=== PATIENT | male | born 1955 | race American Indian/Alaskan Native ===

== ENCOUNTER 2016-12-12 07:13 | Emergency (ER) | payer OTHER, SELFPAY ==
--- NOTE | 2016-12-12 07:54 | Emergency Department Report ---
ED General Adult HPI - General Chief complaint: Hypoglycemia Stated complaint: LOW BLOOD SUGAR Time Seen by Provider: 12/12/16 07:17 Source: patient, EMS, old records reviewed Mode of arrival: Stretcher Limitations: Physical Limitation - History of Present Illness Initial comments: 61-year-old male presents to the emergency department via EMS from local shelter for evaluation of altered mental status. Per report, the shelter staff found the patient to be less responsive this morning. He checked his blood sugar and found it to be 24. Patient was administered oral glucose and IM glucagon at the shelter prior to EMS arrival. EMS reports there initial blood glucose was 89. Further history is unable to be obtained from the patient due to his being nonverbal at this time. -: Sudden, During the night Severity scale (0 -10): 0 Consistency: now resolved Improves with: none Worsens with: none Associated Symptoms: denies other symptoms - Related Data Home Medications Medication Instructions Recorded Confirmed Last Taken Acetaminophen [Tylenol] 1,000 mg PO Q8H 12/12/16 12/12/16 Unknown Aspirin [Aspirin TAB] 1 tab PO DAILY 12/12/16 12/12/16 Unknown AtorvaSTATin [Lipitor] 40 mg PO DAILY 12/12/16 12/12/16 Unknown Brimonidine/Timolol 0.2-0.5% 1 drops OP Q12H 12/12/16 12/12/16 Unknown [Combigan 0.2-0.5%] Clonidine 0.2 mg PO BID 12/12/16 12/12/16 Unknown Immodium 2 caplet PO PRN 12/12/16 Unknown Insulin Aspart [NovoLOG Flexpen] 0 units SQ AC 12/12/16 12/12/16 Unknown Insulin Glargine [Lantus] 20 unit SUB-Q QHS 12/12/16 12/12/16 Unknown Latanoprost 0.005% [Xalatan 0.005%] 1 drop OP QPM 12/12/16 12/12/16 Unknown Losartan [Cozaar] 50 mg PO QDAY 12/12/16 12/12/16 Unknown Metoclopramide [Reglan] 10 mg PO TID 12/12/16 12/12/16 Unknown Metoprolol [Lopressor] 25 mg PO BID 12/12/16 12/12/16 Unknown Minoxidil [Loniten] 2.5 mg PO QDAY 12/12/16 12/12/16 Unknown Mirtazapine [Remeron] 7.5 mg PO HS 12/12/16 12/12/16 Unknown Pantoprazole [Protonix] 40 mg PO BID 12/12/16 12/12/16 Unknown amLODIPine [Norvasc] 10 mg PO DAILY 12/12/16 12/12/16 Unknown Allergies Allergy/AdvReac Type Severity Reaction Status Date / Time No Known Allergies Allergy Unverified 08/02/13 10:39 ED Review of Systems ROS: Stated complaint: LOW BLOOD SUGAR Other details as noted in HPI Comment: Unobtainable due to pts medical conditions ED Past Medical Hx - Past Medical History Previous Medical History?: Yes Hx Hypertension: Yes (essential) Hx Congestive Heart Failure: No Hx Diabetes: Yes Hx GERD: Yes Hx Renal Disease: Yes (HD m-w-f) Hx Asthma: No Hx COPD: No Additional medical history: Metabolic encephalopathy, Pneumoniits, Unspecified convulsions, 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, right heel ulcer, myopathy - Surgical History Past Surgical History?: Yes Additional Surgical History: dialysis graft LUE - Family History Family history: no significant - Social History Smoking Status: Unknown if ever smoked Substance Use Type: Prescribed - Medications Home Medications: Home Medications Medication Instructions Recorded Confirmed Last Taken Type Acetaminophen [Tylenol] 1,000 mg PO Q8H 12/12/16 12/12/16 Unknown History Aspirin [Aspirin TAB] 1 tab PO DAILY 12/12/16 12/12/16 Unknown History AtorvaSTATin [Lipitor] 40 mg PO DAILY 12/12/16 12/12/16 Unknown History Brimonidine/Timolol 0.2-0.5% 1 drops OP Q12H 12/12/16 12/12/16 Unknown History [Combigan 0.2-0.5%] Clonidine 0.2 mg PO BID 12/12/16 12/12/16 Unknown History Immodium 2 caplet PO PRN 12/12/16 Unknown History Insulin Aspart [NovoLOG Flexpen] 0 units SQ AC 12/12/16 12/12/16 Unknown History Insulin Glargine [Lantus] 20 unit SUB-Q QHS 12/12/16 12/12/16 Unknown History Latanoprost 0.005% [Xalatan 0.005%] 1 drop OP QPM 12/12/16 12/12/16 Unknown History Losartan [Cozaar] 50 mg PO QDAY 12/12/16 12/12/16 Unknown History Metoclopramide [Reglan] 10 mg PO TID 12/12/16 12/12/16 Unknown History Metoprolol [Lopressor] 25 mg PO BID 12/12/16 12/12/16 Unknown History Minoxidil [Loniten] 2.5 mg PO QDAY 12/12/16 12/12/16 Unknown History Mirtazapine [Remeron] 7.5 mg PO HS 12/12/16 12/12/16 Unknown History Pantoprazole [Protonix] 40 mg PO BID 12/12/16 12/12/16 Unknown History amLODIPine [Norvasc] 10 mg PO DAILY 12/12/16 12/12/16 Unknown History ED Physical Exam - General Limitations: Physical Limitation General appearance: alert, in no apparent distress - Head Head exam: Present: atraumatic, normocephalic - Eye Eye exam: Present: normal appearance, PERRL, EOMI - ENT ENT exam: Present: normal exam, normal orophraynx, mucous membranes moist - Neck Neck exam: Present: normal inspection, full ROM. Absent: tenderness - Respiratory Respiratory exam: Present: normal lung sounds bilaterally. Absent: respiratory distress - Cardiovascular Cardiovascular Exam: Present: regular rate, normal rhythm, normal heart sounds - GI/Abdominal GI/Abdominal exam: Present: soft, normal bowel sounds. Absent: distended, tenderness - Extremities Exam Extremities exam: Present: normal inspection, full ROM. Absent: tenderness - Back Exam Back exam: Present: normal inspection, full ROM. Absent: tenderness - Neurological Exam Neurological exam: Present: alert, other (Patient is nonverbal, but will respond to verbal commands. Moving all extremities.) - Skin Skin exam: Present: warm, dry, intact ED Course Vital Signs 12/12/16 12/12/16 12/12/16 07:22 07:30 07:32 Temperature 97.6 F Pulse Rate 61 62 61 Respiratory 9 L 8 L 16 Rate Blood Pressure 161/89 161/89 Blood Pressure 161/89 [Right] O2 Sat by Pulse 100 99 Oximetry 12/12/16 12/12/16 12/12/16 07:39 07:40 07:50 Temperature Pulse Rate 67 60 Respiratory 16 11 L 9 L Rate Blood Pressure 167/89 171/81 Blood Pressure [Right] O2 Sat by Pulse 99 98 100 Oximetry 12/12/16 12/12/16 12/12/16 08:00 08:10 08:20 Temperature Pulse Rate 63 68 66 Respiratory 11 L 9 L 13 Rate Blood Pressure 171/81 166/82 166/82 Blood Pressure [Right] O2 Sat by Pulse 100 100 99 Oximetry 12/12/16 12/12/16 12/12/16 08:30 08:40 08:50 Temperature Pulse Rate 62 57 L 57 L Respiratory 10 L 8 L 8 L Rate Blood Pressure 166/82 166/82 166/82 Blood Pressure [Right] O2 Sat by Pulse 100 100 100 Oximetry 12/12/16 09:00 Temperature Pulse Rate 57 L Respiratory 8 L Rate Blood Pressure 166/82 Blood Pressure [Right] O2 Sat by Pulse 99 Oximetry ED Medical Decision Making - Lab Data Result diagrams: 12/12/16 07:37 12/12/16 07:31 - Medical Decision Making Lab results reviewed. Patient has remained stable in the emergency department. Patient has become verbal and is expressing no complaints. He has tolerated oral intake. He'll be discharged back to nursing facility at this time. - Differential Diagnosis hypoglycemia, occult infection, electrolyte abnormality, encephalopathy Critical care attestation.: If time is entered above; I have spent that time in minutes in the direct care of this critically ill patient, excluding procedure time. ED Disposition Clinical Impression: Hypoglycemia due to insulin Disposition: DC/TX ANOTHER TYPE HEALTHCARE Is pt being admited?: No Condition: Stable Instructions: Diabetic Hypoglycemia (ED) Referrals: PRIMARY CARE [Primary Care Provider] - 3-5 Days Time of Disposition: 09:26
[2016-12-12 08:01] LABS: Basophils % (Auto) 0.5 % (0.0-1.8); Eosinophils % (Auto) 1.8 % (0.0-4.3); Hematocrit 27.8 % (35.5-45.6); Hemoglobin 9.1 gm/dl (11.8-15.2); Mean Corpuscular HGB Conc 33 % (32-34); Mean Corpuscular Hemoglobin 30 pg (28-32); Mean Corpuscular Volume 92 fl (84-94); Platelet Count 301 K/mm3 (140-440); Red Blood Count 3.02 M/mm3 (3.65-5.03); Red Cell Distribution Width 19.3 % (13.2-15.2); White Blood Count 4.7 K/mm3 (4.5-11.0)
[2016-12-12 08:03] LABS: BUN/Creatinine Ratio 9.21; Calcium 8.7 mg/dL (8.4-10.2); Chloride 98.5 mmol/L (98-107); Potassium 4.2 mmol/L (3.6-5.0)
--- NOTE | 2016-12-12 08:16 | XRay Report ---
AP CHEST: HISTORY: Hypertension, altered mental status AP view of the chest demonstrates a normal mediastinal and cardiac contour with clear lungs and normal bony and soft tissue structures. IMPRESSION: No acute cardiopulmonary process.
[2016-12-12 08:31] LABS: Bilirubin,Urine NEG (Negative); Blood,Urine NEG (Negative); Ketones,Urine NEG (Negative); Leukocyte Esterase,Urine NEG (Negative); Nitrite,Urine NEG (Negative); Urobilinogen,Urine < 2.0 mg/dL (<2.0)
[2016-12-12 09:13] VITALS: BP 166/82
== END 2016-12-12 10:27 | disposition other institution (70) ==
LOC: ED 07:13
DX: E09.649 Drug or chemical induced diabetes mellitus with hypoglycemia without coma (principal); I10 Essential (primary) hypertension; K21.9 Gastro-esophageal reflux disease without esophagitis
CPT/HCPCS: 36415; 71010; 80048; 81001; 82962; 83735; 85025; 99284

== ENCOUNTER 2017-03-06 04:49 | Inpatient (IN) | payer MEDICARE ==
[2017-03-06 05:55] LABS: Basophils % (Auto) 0.5 % (0.0-1.8); Mean Corpuscular HGB Conc 29 % (32-34); Mean Corpuscular Hemoglobin 30 pg (28-32); Mean Corpuscular Volume 102 fl (84-94); Platelet Count 243 K/mm3 (140-440); Red Blood Count 3.84 M/mm3 (3.65-5.03); Red Cell Distribution Width 17.4 % (13.2-15.2); White Blood Count 7.5 K/mm3 (4.5-11.0)
[2017-03-06 06:01] LABS: Hematocrit 39.3 % (35.5-45.6); Hemoglobin 11.5 gm/dl (11.8-15.2)
[2017-03-06 06:05] LABS: INR 1.14 (0.87-1.13)
[2017-03-06 06:06] LABS: Partial Thromboplastin Time 41.5 Sec. (24.2-36.6)
[2017-03-06 06:31] LABS: Albumin 3.9 g/dL (3.9-5); Albumin/Globulin Ratio 1.1 %; BUN/Creatinine Ratio 9.31; Bilirubin,Total 0.4 mg/dL (0.1-1.2); Chloride 79.9 mmol/L (98-107); Magnesium 2.1 mg/dL (1.7-2.3); Potassium 5.9 mmol/L (3.6-5.0); Total Protein 7.5 g/dL (6.3-8.2)
[2017-03-06] MEDS ORDERED: NACL 0.9% 500 ML 500 ML IV ONE (06:50)
[2017-03-06] MEDS ORDERED: D50W (25GM) IV PRN (06:52)
[2017-03-06] MEDS ORDERED: NovoLIN R 100 UNITS in NACL 0.9% 99 ML IV SCH ×2 (07:00→11:00)
--- NOTE | 2017-03-06 07:23 | XRay Report ---
AP CHEST: HISTORY: Chest pain, vomiting blood Borderline to mild cardiomegaly and pulmonary venous congestion appear stable since 12/12/16. No consolidation, pleural effusion or pneumothorax is identified. The thoracic cage is grossly intact. IMPRESSION: No acute cardiopulmonary process identified.
--- NOTE | 2017-03-06 07:28 | Admit Criteria Form ---
Admission Criteria Documentation: DIABETES Clinical Indications for Admission to Inpatient Care (Place 'X' for any and all applicable criteria): Admission is indicated by presence of ALL (if I & II) or ANY ONE (if III or IV) of the following (1)(2)(3)(4): [X ]I. Diabetes is uncontrolled as indicated by ANY ONE of the following: [ ]a) Diabetic ketoacidosis as indicated by ALL of the following (8): [ ]i) Hyperglycemia (eg, plasma glucose greater than 200 mg/ dL (11.1 mmol/L)) [ ]ii) Acidosis (eg, arterial pH less than 7.30, serum bicarbonate level less than 15 mEq/L (mmol/L)) [ ]iii) Moderate ketonuria or ketonemia [ ]b) Hyperglycemic hyperosmolar state as indicated by ALL of the following(9)(10): [ ]i) Neurologic dysfunction (eg, stupor, coma, hemiparesis , seizure)(13) [ ]ii) Plasma glucose greater than 600 mg/dL (33.3 mmol/L) [ ]iii) Serum osmolality greater than 320 mOsm/kg (mmol/kg) [X ]c) Severe signs or symptoms secondary to hyperglycemia indicated by ANY ONE of the following: [ ]i) Altered mental status(10) [ ]ii) Significant hypovolemia or dehydration [ ]iii) Intractable nausea or vomiting [ ]iv) Unexplained fever or severe infection [X ]v) Severe electrolyte abnormality (eg, hypokalemia, hyperkalemia, hypernatremia) [X ]II. Management at other levels of care (Also use Diabetes: Observation Care as appropriate) is not feasible because of ANY ONE of the following: [X ]a) Condition was not adequately corrected with treatment at other levels of care. [ ]b) Treatment at other levels of care is not appropriate because of condition severity (eg, hyperosmolar coma). [ ]III. Contraindications and/or Inappropriate clinical situations for Observational Care in patients with Diabetes, when ANY ONE of the following is required: [ ]a) Patient require specific diagnostic workup or therapeutic intervention 22 [ ]b) Patient with abnormal vital signs or altered mental status 23 [X ]IV. General contraindications and/or Inappropriate clinical situations for Observational Care in patients with Diabetes, when ANY ONE of the following is required: [ ]a) Prediction of prolongation of LOS based on ANY ONE of the following may be considered as a contraindication for observational care 2, 3, 4, 5, 6, 7, 8, 9, 10, 11 [ ]i) Age > 65 yrs. [ ]ii) Patient arriving by ambulance [ ]iii) Patient with high acuity [ ]iv) Patient requiring vital sign monitoring [ ]v) Patient on IV medication [X ]b) Systolic blood pressures 180mmHg 3,12 [ ]c) Patient with altered mental status including delirium and other alteration of consciousness, (3) [ ]d) Patient whose discharge disposition will be to a [facility] home or rehabilitation home should not be managed in Emergency Department Observation Unit. CMS rule requires 3 days hospital stay before such placement.3,13 [ ]e) Patient with failure to thrive due to broad array of etiologies 3,16,17 [ ]f) Inability to ambulate 3,14 Extended stay beyond goal length of stay may be needed for(3)(20): [ ]a) Treatment of precipitating causes [ ]b) Development of hypoglycemia [ ]c) Complications of treatment [ ]d) Complications of decompensated diabetes (eg, acute gastric dilatation, persistent metabolic or neurologic derangement) [ ]e) Active Comorbidities [ ]f) Older patients( 65 years or older) The original [employer] content created by [employer] has been revised. The portions of the content which have been revised are identified through the use of italic text or in bold,and [facility] [employer] has neither reviewed nor approved the modified material. All other unmodified content is copyright [employer]. Please see references footnoted in the original [employer] edition 2016 Admission Criteria Met: Yes
--- NOTE | 2017-03-06 07:38 | Emergency Department Report ---
HPI - General Chief Complaint: GI Bleed Time Seen by Provider: 03/06/17 06:29 - HPI HPI: The patient is a 62-year-old male presents from halfway for evaluation of altered mental status, and hematemesis since this a.m. The nursing facility staff reports patient has exhibited multiple episodes of vomiting coffee ground- like emesis, also since this morning. The patient admits to epigastric abdominal pain, moderate in severity, sore in quality, constant since onset this morning, exacerbated with vomiting. The patient denies fever, headache, chest pain, dyspnea, diarrhea, flank pain, inability to pass flatus. 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, right heel ulcer, myopathy - Surgical History Past Surgical History?: Yes Additional Surgical History: dialysis graft LUE - Social History Smoking Status: Unknown if ever smoked Substance Use Type: None - Medications Home Medications: Home Medications Medication Instructions Recorded Confirmed Last Taken Type Acetaminophen [Tylenol] 1,000 mg PO Q8H 12/12/16 03/06/17 Unknown History Aspirin [Aspirin TAB] 1 tab PO DAILY 12/12/16 03/06/17 Unknown History AtorvaSTATin [Lipitor] 40 mg PO DAILY 12/12/16 03/06/17 Unknown History Brimonidine/Timolol 0.2-0.5% 1 drops OP Q12H 12/12/16 03/06/17 Unknown History [Combigan 0.2-0.5%] Clonidine 0.2 mg PO DAILY 12/12/16 03/06/17 Unknown History Immodium 2 caplet PO BID PRN 12/12/16 03/06/17 Unknown History Insulin Aspart [NovoLOG Flexpen] 0 units SQ AC 12/12/16 03/06/17 Unknown History Insulin Glargine [Lantus] 20 unit SUB-Q QHS 12/12/16 03/06/17 Unknown History Latanoprost 0.005% [Xalatan 0.005%] 1 drop OP QPM 12/12/16 03/06/17 Unknown History Losartan [Cozaar] 50 mg PO QDAY 12/12/16 03/06/17 Unknown History Metoclopramide [Reglan] 10 mg PO TID 12/12/16 03/06/17 Unknown History Metoprolol [Lopressor] 25 mg PO BID 12/12/16 03/06/17 Unknown History Minoxidil [Loniten] 2.5 mg PO QDAY 12/12/16 03/06/17 Unknown History Mirtazapine [Remeron] 7.5 mg PO HS 12/12/16 03/06/17 Unknown History Pantoprazole [Protonix] 40 mg PO BID 12/12/16 03/06/17 Unknown History amLODIPine [Norvasc] 10 mg PO DAILY 12/12/16 03/06/17 Unknown History ED Review of Systems ROS: Stated complaint: EMESIS Other details as noted in HPI Constitutional: denies: fever ENT: denies: throat or neck pain Respiratory: denies: cough, shortness of breath Cardiovascular: denies: chest pain Endocrine: denies unexplained weight loss or gain Gastrointestinal: reports abdominal pain, nausea Genitourinary: denies: dysuria Musculoskeletal: denies: leg swelling Skin: denies: rash Neurological: denies: headache Hematological/Lymphatic: denies: easy bleeding or easy bruising Psych: denies sadness or hopelessness Physical Exam - Physical Exam Vital Signs: Vital Signs 03/06/17 05:02 Temperature 98.8 F Pulse Rate 108 H Respiratory 16 Rate Blood Pressure 185/95 O2 Sat by Pulse 98 Oximetry Physical Exam: General: well-nourished, well-developed, no acute distress Head: Normocephalic, atraumatic Eyes: normal sclera ENT: Mucous membranes are pale and dry Neck: No neck stiffness, no cervical adenopathy Respiratory: Breath sounds equal bilaterally, no wheezing, rales, or rhonchi Cardio: S1 and S2 present, no murmurs, rubs, gallops, capillary refill is delayed Abdomen: Normoactive bowel sounds, soft abdomen, generalized tenderness to palpation present, no rigidity, no guarding or rebound tenderness Chest WALL/Back: No tenderness to palpation of the chest wall, no CVA tenderness with percussion Musc: No pitting edema Skin: No rash Neuro: no facial drooping, normal speech Psych: Normal affect ED Course Vital Signs 03/06/17 05:02 Temperature 98.8 F Pulse Rate 108 H Respiratory 16 Rate Blood Pressure 185/95 O2 Sat by Pulse 98 Oximetry ED Medical Decision Making - Lab Data Result diagrams: 03/07/17 03:45 03/07/17 10:29 - Medical Decision Making The patient was seen and examined by myself. The patient is placed on a cardiac sonographer and continuous pulse ox. On initial evaluation, the patient was found to be in no distress. Evaluation orders were placed. Lab results revealed elevated creatinine of 8.8, elevated potassium 5.9, elevated glucose of 1000. The patient is given 1 L normal saline fluid bolus for treatment of dehydration, and hyperglycemia, and IV Zofran for treatment of nausea and vomiting. The patient given IV Pepcid and octreotide for treatment of acute hematemesis. The patient is given IV insulin bolus and started on insulin infusion for treatmeNt of hyperglycemia as well. The patient is given Kayexalate for treatment of hyperkalemia. The on-call field foreman was contacted and agreed to consultation. The on-call hospitalist service was contacted. They agreed to admit the patient for further treatment and close monitoring. The ED admit order was placed. The patient was admitted in guarded condition. Critical Care Time: Yes (35) Critical care time in (mins) excluding proc time.: 35 Critical care attestation.: Due to the critical nature of this patients presentation, which necessitated multiple bedside assessments, manipulation and supportive measures to prevent further life threatening deterioration, I would like to bill for a total of 35 minutes of critical care time. This was exclusive of any separately billable procedures. Critical Care Time: 35 ED Disposition Clinical Impression: Acute hyperkalemia, Chronic kidney disease (CKD) stage G4/A1, severely decreased glomerular filtration rate (GFR) between 15-29 mL/min/1.73 square meter and albuminuria creatinine ratio less than 30 mg/g, Dehydration, Acute hyperglycemia, Hyperosmolar non-ketotic state in patient with type 2 diabetes mellitus Disposition: OP ADMIT IP TO THIS HOSP Is pt being admited?: Yes Does the pt Need Aspirin: Yes Condition: Critical Time of Disposition: 07:03
[2017-03-06] MEDS ORDERED: APRESOLINE IV ONE ×4 (08:21→20:52)
[2017-03-06 08:33] LABS: BUN/Creatinine Ratio 9.12; Calcium 8.1 mg/dL (8.4-10.2); Chloride 81.3 mmol/L (98-107); Potassium 5.3 mmol/L (3.6-5.0)
[2017-03-06 08:40] LABS: Phosphorous 9.3 mg/dL (2.5-4.5)
[2017-03-06] MEDS ORDERED: PEPCID IV ONE ×2 (08:44→09:15)
[2017-03-06] MEDS ORDERED: CALCIUM CHLORIDE IV ONE (08:44)
[2017-03-06] MEDS ORDERED: ZOFRAN ONE (08:45)
[2017-03-06] MEDS ORDERED: ZOFRAN IV ONE (09:15)
[2017-03-06] MEDS ORDERED: CALCIUM GLUCONATE 1,000 MG in NACL 0.9% 100 ML IV ONE (09:15)
[2017-03-06] MEDS ORDERED: CALCIUM GLUCONATE IV ONE (10:00)
[2017-03-06] MEDS ORDERED: NACL 0.9% 1000 ML 1,000 ML IV ONE (10:06)
[2017-03-06 10:35] LABS: BUN/Creatinine Ratio 9.02; Chloride 83.5 mmol/L (98-107)
--- NOTE | 2017-03-06 10:36 | History and Physical Report ---
History of Present Illness Date of examination: 03/06/17 Date of admission: 03/06/17 Past History Past Medical History: diabetes, dialysis, ESRD, hypertension, hyperlipidemia, renal failure Past Surgical History: Other (av graft) Social history: full code, other (SNF). denies: smoking, alcohol abuse, prescription drug abuse Family history: hypertension Medications and Allergies Allergies Allergy/AdvReac Type Severity Reaction Status Date / Time No Known Allergies Allergy Unverified 08/02/13 10:39 Home Medications Medication Instructions Recorded Confirmed Last Taken Type Acetaminophen [Tylenol] 1,000 mg PO Q8H 12/12/16 03/06/17 Unknown History Aspirin [Aspirin TAB] 1 tab PO DAILY 12/12/16 03/06/17 Unknown History AtorvaSTATin [Lipitor] 40 mg PO DAILY 12/12/16 03/06/17 Unknown History Brimonidine/Timolol 0.2-0.5% 1 drops OP Q12H 12/12/16 03/06/17 Unknown History [Combigan 0.2-0.5%] Clonidine 0.2 mg PO DAILY 12/12/16 03/06/17 Unknown History Immodium 2 caplet PO BID PRN 12/12/16 03/06/17 Unknown History Insulin Aspart [NovoLOG Flexpen] 0 units SQ AC 12/12/16 03/06/17 Unknown History Insulin Glargine [Lantus] 20 unit SUB-Q QHS 12/12/16 03/06/17 Unknown History Latanoprost 0.005% [Xalatan 0.005%] 1 drop OP QPM 12/12/16 03/06/17 Unknown History Losartan [Cozaar] 50 mg PO QDAY 12/12/16 03/06/17 Unknown History Metoclopramide [Reglan] 10 mg PO TID 12/12/16 03/06/17 Unknown History Metoprolol [Lopressor] 25 mg PO BID 12/12/16 03/06/17 Unknown History Minoxidil [Loniten] 2.5 mg PO QDAY 12/12/16 03/06/17 Unknown History Mirtazapine [Remeron] 7.5 mg PO HS 12/12/16 03/06/17 Unknown History Pantoprazole [Protonix] 40 mg PO BID 12/12/16 03/06/17 Unknown History amLODIPine [Norvasc] 10 mg PO DAILY 12/12/16 03/06/17 Unknown History Active Meds: Active Medications Dextrose (D50w (25gm)) 0 ml IV PRN PRN PRN Reason: Hypoglycemia Dextrose (D50w (25gm)) 0 ml IV ONCE PRN PRN Reason: Hypoglycemia Enoxaparin Sodium (Lovenox) 40 mg SUB-Q QDAY NICHOLAS Insulin Human Regular 100 (units/ Sodium Chloride) 100 mls @ 1 mls/hr IV TITR NICHOLAS; 1 UNITS/HR PRN Reason: Protocol Last Admin: 03/06/17 09:00 Dose: 8 units/hr, 8 mls/hr Potassium Chloride/Dextrose/Sod Cl (D5w/0.45% Nacl/Kcl 20 Meq) 20 meq in 1,000 mls @ 125 mls/hr IV DIRECT NICHOLAS Sodium Chloride (Nacl 0.9% 1000 Ml) 1,000 mls @ 999 mls/hr IV BOLUS ONE Stop: 03/06/17 11:06 Insulin Human Regular 100 (units/ Sodium Chloride) 100 mls @ 1 mls/hr IV TITR NICHOLAS; 1 UNITS/HR PRN Reason: Protocol Exam - Constitutional Vitals: Temp Pulse Resp BP Pulse Ox 98.8 F 104 H 13 178/90 94 03/06/17 05:02 03/06/17 08:46 03/06/17 08:46 03/06/17 08:46 03/06/17 08:46 Results - Labs CBC & Chem 7: 03/06/17 05:35 03/06/17 13:03 Labs: Abnormal lab results 03/06/17 03/06/17 03/06/17 Range/Units 05:35 05:35 05:35 Hgb 11.5 L (11.8-15.2) gm/dl MCV 102 H (84-94) fl MCHC 29 L (32-34) % RDW 17.4 H (13.2-15.2) % Lymph % (Auto) 4.7 L (13.4-35.0) % Drew % (Auto) 10.1 H (0.0-7.3) % Lymph # 0.4 L (1.2-5.4) K/mm3 Seg Neutrophils % 84.7 H (40.0-70.0) % PT 15.2 H (12.2-14.9) Sec. INR 1.14 H (0.87-1.13) APTT 41.5 H (24.2-36.6) Sec. Sodium 130 L (137-145) mmol/L Potassium 5.9 H (3.6-5.0) mmol/L Chloride 79.9 L (98-107) mmol/L Carbon Dioxide 11 L (22-30) mmol/L BUN 82 H (9-20) mg/dL Creatinine 8.8 H (0.8-1.5) mg/dL Glucose 1037 H* (75-100) mg/dL POC Glucose (70-105) Calcium 8.0 L (8.4-10.2) mg/dL Phosphorus (2.5-4.5) mg/dL Alkaline Phosphatase 144 H (35-129) units/L 03/06/17 03/06/17 03/06/17 Range/Units 08:04 08:04 08:23 Hgb (11.8-15.2) gm/dl MCV (84-94) fl MCHC (32-34) % RDW (13.2-15.2) % Lymph % (Auto) (13.4-35.0) % Drew % (Auto) (0.0-7.3) % Lymph # (1.2-5.4) K/mm3 Seg Neutrophils % (40.0-70.0) % PT (12.2-14.9) Sec. INR (0.87-1.13) APTT (24.2-36.6) Sec. Sodium 132 L (137-145) mmol/L Potassium 5.3 H (3.6-5.0) mmol/L Chloride 81.3 L (98-107) mmol/L Carbon Dioxide 11 L (22-30) mmol/L BUN 83 H (9-20) mg/dL Creatinine 9.1 H (0.8-1.5) mg/dL Glucose 1001 H* (75-100) mg/dL POC Glucose > 500 H (70-105) Calcium 8.1 L (8.4-10.2) mg/dL Phosphorus 9.30 H (2.5-4.5) mg/dL Alkaline Phosphatase (35-129) units/L 03/06/17 03/06/17 Range/Units 10:09 10:09 Hgb (11.8-15.2) gm/dl MCV (84-94) fl MCHC (32-34) % RDW (13.2-15.2) % Lymph % (Auto) (13.4-35.0) % Drew % (Auto) (0.0-7.3) % Lymph # (1.2-5.4) K/mm3 Seg Neutrophils % (40.0-70.0) % PT (12.2-14.9) Sec. INR (0.87-1.13) APTT (24.2-36.6) Sec. Sodium 131 L (137-145) mmol/L Potassium 6.0 H (3.6-5.0) mmol/L Chloride 83.5 L (98-107) mmol/L Carbon Dioxide 14 L (22-30) mmol/L BUN 83 H (9-20) mg/dL Creatinine 9.2 H (0.8-1.5) mg/dL Glucose (75-100) mg/dL POC Glucose > 500 H (70-105) Calcium 8.0 L (8.4-10.2) mg/dL Phosphorus (2.5-4.5) mg/dL Alkaline Phosphatase (35-129) units/L Assessment and Plan --Altered level of consciousness/toxic metabolic encephalopathy Multifactorial, diabetic ketoacidosis, end-stage renal disease, underlying sepsis, fortification --Diabetic ketoacidosis with high anion gap Initiate DKA pathway ,Nothing by mouth, insulin drip per protocol, cautious IV hydration in view of end-stage renal disease Closely monitor electrolytes and adjust as needed --Hyperkalemia; calcium gluconate Hemodialysis per schedule, nephrology consult. --End-stage renal disease on hemodialysis Consults nephrology, HD per schedule --lactic acidosis; rule out sepsis, antibiotics Cultures, consider ID evaluation if needed --Coffee-ground emesis, patient is hemodynamically stable, nothing by mouth IV Protonix, GI consultation for possible endoscopy Closely monitor H&H and transfuse as needed --Malignant Hypertension; resume home antihypertensives And when necessary hydralazine/labetalol, closely monitor --DVT prophylaxis; no pharmacologic anticoagulation in view of GI bleeding --DC planning. Case management
--- NOTE | 2017-03-06 10:41 | Gastroenterology Consultation ---
<DREA LIMA - Last Filed: 03/06/17 10:58> History of Present Illness - Reason for Consult Consult date: 03/06/17 hematemesis Requesting physician: QUYEN DAVILA - History of Present Illness Patient is a 62 y/o admitted for GI bleed, DKA, and hyperkalemia. Currently on insulin gtt for BS > 500. Potassium 6.0. Patient is lethargic, arrousable to stimuli, but unable to give history, no family at bedside. Information received from chart review and nursing. Nurse was given in report from [facility] that pt had a recent CVA 6 months ago and is in [facility] for [facility]. Reports being on ASA daily and coffee-ground emesis x 1 day. No melena noted per nursing. Last BM this morning with brown stool. No hx of liver dx. PMH significant for HTN, ERSD on HD, DM, GERD, and DM. Past History Past Medical History: diabetes, ESRD, GERD, hypertension, stroke Social history: other ([facility] resident) Medications and Allergies Allergies Allergy/AdvReac Type Severity Reaction Status Date / Time No Known Allergies Allergy Unverified 08/02/13 10:39 Home Medications Medication Instructions Recorded Confirmed Last Taken Type Acetaminophen [Tylenol] 1,000 mg PO Q8H 12/12/16 03/06/17 Unknown History Aspirin [Aspirin TAB] 1 tab PO DAILY 12/12/16 03/06/17 Unknown History AtorvaSTATin [Lipitor] 40 mg PO DAILY 12/12/16 03/06/17 Unknown History Brimonidine/Timolol 0.2-0.5% 1 drops OP Q12H 12/12/16 03/06/17 Unknown History [Combigan 0.2-0.5%] Clonidine 0.2 mg PO DAILY 12/12/16 03/06/17 Unknown History Immodium 2 caplet PO BID PRN 12/12/16 03/06/17 Unknown History Insulin Aspart [NovoLOG Flexpen] 0 units SQ AC 12/12/16 03/06/17 Unknown History Insulin Glargine [Lantus] 20 unit SUB-Q QHS 12/12/16 03/06/17 Unknown History Latanoprost 0.005% [Xalatan 0.005%] 1 drop OP QPM 12/12/16 03/06/17 Unknown History Losartan [Cozaar] 50 mg PO QDAY 12/12/16 03/06/17 Unknown History Metoclopramide [Reglan] 10 mg PO TID 12/12/16 03/06/17 Unknown History Metoprolol [Lopressor] 25 mg PO BID 12/12/16 03/06/17 Unknown History Minoxidil [Loniten] 2.5 mg PO QDAY 12/12/16 03/06/17 Unknown History Mirtazapine [Remeron] 7.5 mg PO HS 12/12/16 03/06/17 Unknown History Pantoprazole [Protonix] 40 mg PO BID 12/12/16 03/06/17 Unknown History amLODIPine [Norvasc] 10 mg PO DAILY 12/12/16 03/06/17 Unknown History Active Meds: Active Medications Dextrose (D50w (25gm)) 0 ml IV PRN PRN PRN Reason: Hypoglycemia Dextrose (D50w (25gm)) 0 ml IV ONCE PRN PRN Reason: Hypoglycemia Enoxaparin Sodium (Lovenox) 40 mg SUB-Q QDAY NICHOLAS Insulin Human Regular 100 (units/ Sodium Chloride) 100 mls @ 1 mls/hr IV TITR NICHOLAS; 1 UNITS/HR PRN Reason: Protocol Last Admin: 03/06/17 09:00 Dose: 8 units/hr, 8 mls/hr Potassium Chloride/Dextrose/Sod Cl (D5w/0.45% Nacl/Kcl 20 Meq) 20 meq in 1,000 mls @ 125 mls/hr IV DIRECT NICHOLAS Sodium Chloride (Nacl 0.9% 1000 Ml) 1,000 mls @ 999 mls/hr IV BOLUS ONE Stop: 03/06/17 11:06 Insulin Human Regular 100 (units/ Sodium Chloride) 100 mls @ 1 mls/hr IV TITR NICHOLAS; 1 UNITS/HR PRN Reason: Protocol Review of Systems - Review of Systems ROS unobtainable: due to mental status Gastrointestinal: coffee ground emesis Exam - Constitutional Vital Signs: Temp Pulse Resp BP Pulse Ox 98.8 F 104 H 13 178/90 94 03/06/17 05:02 03/06/17 08:46 03/06/17 08:46 03/06/17 08:46 03/06/17 08:46 General appearance: mild distress, other (lethargic) - Neck Neck: supple, normal ROM - Respiratory Respiratory: bilateral: CTA - Cardiovascular Rhythm: other (tachycardia) Heart Sounds: Present: S1 & S2 Extremities: No edema Extremity abnormal: other (AV fistula) - Gastrointestinal General gastrointestinal: Present: soft, non-distended, normal bowel sounds - Integumentary Integumentary: Present: warm, dry - Neurologic Neurological: disoriented - Labs CBC & Chem 7: 03/06/17 05:35 03/06/17 10:09 Lab Results: Laboratory Results - last 24 hr 03/06/17 03/06/17 03/06/17 05:35 05:35 05:35 WBC 7.5 RBC 3.84 Hgb 11.5 L Hct 39.3 MCV 102 H MCH 30 MCHC 29 L RDW 17.4 H Plt Count 243 Lymph % (Auto) 4.7 L [place] % (Auto) 10.1 H Eos % (Auto) 0.0 Baso % (Auto) 0.5 Lymph # 0.4 L [place] # 0.8 Eos # 0.0 Baso # 0.0 Seg Neutrophils % 84.7 H Seg Neutrophils # 6.4 PT 15.2 H INR 1.14 H APTT 41.5 H Sodium 130 L Potassium 5.9 H Chloride 79.9 L Carbon Dioxide 11 L Anion Gap 45 BUN 82 H Creatinine 8.8 H Estimated GFR 7 BUN/Creatinine Ratio 9.31 Glucose 1037 H* POC Glucose Osmolality Calcium 8.0 L Phosphorus Magnesium 2.10 Total Bilirubin 0.40 AST 12 ALT 11 Alkaline Phosphatase 144 H Total Protein 7.5 Albumin 3.9 Albumin/Globulin Ratio 1.1 Lipase 42 Blood Type Antibody Screen BALDEV Antibody Screen 03/06/17 03/06/17 03/06/17 05:45 08:04 08:04 WBC RBC Hgb Hct MCV MCH MCHC RDW Plt Count Lymph % (Auto) [place] % (Auto) Eos % (Auto) Baso % (Auto) Lymph # [place] # Eos # Baso # Seg Neutrophils % Seg Neutrophils # PT INR APTT Sodium 132 L Potassium 5.3 H Chloride 81.3 L Carbon Dioxide 11 L Anion Gap 45 BUN 83 H Creatinine 9.1 H Estimated GFR 7 BUN/Creatinine Ratio 9.12 Glucose 1001 H* POC Glucose Osmolality Calcium 8.1 L Phosphorus 9.30 H Magnesium 2.00 Total Bilirubin AST ALT Alkaline Phosphatase Total Protein Albumin Albumin/Globulin Ratio Lipase Blood Type O POSITIVE Antibody Screen TNR BALDEV Antibody Screen Negative 03/06/17 03/06/17 03/06/17 08:04 08:23 10:09 WBC RBC Hgb Hct MCV MCH MCHC RDW Plt Count Lymph % (Auto) [place] % (Auto) Eos % (Auto) Baso % (Auto) Lymph # [place] # Eos # Baso # Seg Neutrophils % Seg Neutrophils # PT INR APTT Sodium 131 L Potassium 6.0 H Chloride 83.5 L Carbon Dioxide 14 L Anion Gap 40 BUN 83 H Creatinine 9.2 H Estimated GFR 7 BUN/Creatinine Ratio 9.02 Glucose POC Glucose > 500 H Osmolality 373 Calcium 8.0 L Phosphorus Magnesium Total Bilirubin AST ALT Alkaline Phosphatase Total Protein Albumin Albumin/Globulin Ratio Lipase Blood Type Antibody Screen BALDEV Antibody Screen 03/06/17 10:09 WBC RBC Hgb Hct MCV MCH MCHC RDW Plt Count Lymph % (Auto) [place] % (Auto) Eos % (Auto) Baso % (Auto) Lymph # [place] # Eos # Baso # Seg Neutrophils % Seg Neutrophils # PT INR APTT Sodium Potassium Chloride Carbon Dioxide Anion Gap BUN Creatinine Estimated GFR BUN/Creatinine Ratio Glucose POC Glucose > 500 H Osmolality Calcium Phosphorus Magnesium Total Bilirubin AST ALT Alkaline Phosphatase Total Protein Albumin Albumin/Globulin Ratio Lipase Blood Type Antibody Screen BALDEV Antibody Screen Assessment and Plan 1. GI bleed 2. coffee ground emesis 3. acute hyperkalema 4.acute hyperglycemia -HGB 11.5 -currently hemodynamically stable -continue to trend H&H and transfuse as needed -hold blood thinning medications -will start on Pepcid IV (hospital out of protonix IV) -currently on insulin gtt- BS>500 -defer to nephrology for tx of hyperkalema and hyperglycemia -Keep NPO -will consider EGD tomorrow once pt is clinically stable with BS/K levels normalized -will follow <CHOCO MAK - Last Filed: 03/06/17 17:14> Medications and Allergies Active Meds: Active Medications Amlodipine Besylate (Norvasc) 10 mg PO DAILY NICHOLAS Atorvastatin Calcium (Lipitor) 40 mg PO DAILY NICHOLAS Brimonidine/Timolol (Combigan 0.2-0.5%) 1 drops OD Q12H NICHOLAS Clonidine HCl (Catapres) 0.2 mg PO QDAY NICHOLAS Dextrose (D50w (25gm)) 0 ml IV PRN PRN PRN Reason: Hypoglycemia Dextrose (D50w (25gm)) 0 ml IV ONCE PRN PRN Reason: Hypoglycemia Famotidine (Pepcid) 20 mg IV QDAY NICHOLAS Insulin Human Regular 100 (units/ Sodium Chloride) 100 mls @ 1 mls/hr IV TITR NICHOLAS; 1 UNITS/HR PRN Reason: Protocol Last Titration: 03/06/17 14:41 Dose: 8 units/hr, 8 mls/hr Potassium Chloride/Dextrose/Sod Cl (D5w/0.45% Nacl/Kcl 20 Meq) 20 meq in 1,000 mls @ 125 mls/hr IV DIRECT NICHOLAS Insulin Human Regular 100 (units/ Sodium Chloride) 100 mls @ 1 mls/hr IV TITR NICHOLAS; 1 UNITS/HR PRN Reason: Protocol Piperacillin Sod/Tazobactam Sod (Zosyn/Ns 2.25 Gm/50ml) 2.25 gm in 50 mls @ 100 mls/hr IV Q8HR NICHOLAS PRN Reason: Protocol Sodium Chloride (Nacl 0.9%) 100 mls @ 999 mls/hr IV ANA PRN PRN Reason: Hypotension Latanoprost (Xalatan 0.005%) 1 drops OD QPM NICHOLAS Losartan Potassium (Cozaar) 50 mg PO QDAY NICHOLAS Metoprolol Tartrate (Lopressor) 25 mg PO BID NICHOLAS Minoxidil (Loniten) 2.5 mg PO QDAY NICHOLAS Mirtazapine (Remeron) 7.5 mg PO HS NICHOLAS Pantoprazole Sodium (Protonix) 40 mg IV BID [facility] Exam - Constitutional Vital Signs: Temp Pulse Resp BP Pulse Ox 98.8 F 82 14 169/71 100 03/06/17 16:52 03/06/17 16:52 03/06/17 16:52 03/06/17 16:52 03/06/17 16:52 - Labs CBC & Chem 7: 03/06/17 05:35 03/06/17 15:30 Lab Results: Laboratory Results - last 24 hr 03/06/17 03/06/17 03/06/17 12:23 13:03 13:12 POC ABG pH 7.300 L POC ABG pCO2 40.0 POC ABG pO2 83 POC ABG HCO3 19.7 POC ABG Total CO2 21 POC ABG O2 Sat 95 POC ABG Base Excess -7 FiO2 28 Sodium 133 L 132 L Potassium 4.6 D 6.2 H* D Chloride 86.1 L 87.9 L Carbon Dioxide 15 L 16 L Anion Gap 37 34 BUN 83 H 84 H Creatinine 9.1 H 9.1 H Estimated GFR 7 7 BUN/Creatinine Ratio 9.12 9.23 Glucose 820 H* 730 H* POC Glucose Calcium 8.3 L 8.0 L 03/06/17 03/06/17 15:30 16:40 POC ABG pH POC ABG pCO2 POC ABG pO2 POC ABG HCO3 POC ABG Total CO2 POC ABG O2 Sat POC ABG Base Excess FiO2 Sodium 136 L Potassium 4.5 D Chloride 90.2 L Carbon Dioxide 20 L Anion Gap 30 BUN 84 H Creatinine 9.0 H Estimated GFR 7 BUN/Creatinine Ratio 9.33 Glucose 571 H* POC Glucose 413 H Calcium 8.3 L Assessment and Plan Patient seen and examined. Agree with note by Drea Lima. Patient presenting with DKA and reported episode of coffee ground emesis. Patient unable to provide history at time of exam. Hold off on EGD unless patient develops signs of overt gi bleeding given other acute medical issues. Cont H2 rico
[2017-03-06] MEDS ORDERED: D5W/0.45% NACL/KCL 20 MEQ 20 MEQ/1,000 ML BAG IV SCH (11:00)
--- NOTE | 2017-03-06 11:07 | Cat Scan Report ---
CT OF THE ABDOMEN AND PELVIS WITHOUT CONTRAST HISTORY: Hematemesis, abdominal pain. TECHNIQUE: Helical CT without contrast. Sagittal and coronal reformatted images. FINDINGS: Within the limits of a noncontrast exam, the abdominal and pelvic viscera are within normal limits. The liver, biliary system, pancreas, spleen, kidneys, adrenal glands and bladder are unremarkable. The bowel loops are normal caliber and wall thickness. Normal appendix. The aorta is normal caliber. No ascites, bulky adenopathy or inflammatory changes. The lung bases are clear. Normal heart size. No suspicious bony lesion. IMPRESSION: Unremarkable noncontrast CT of the abdomen and pelvis. No acute process is noted.
[2017-03-06 11:31] LABS: Phosphorous 8.5 mg/dL (2.5-4.5)
[2017-03-06] MEDS ORDERED: VANCOMYCIN 1,750 MG in NACL 0.9% 500 ML 500 ML IV ONE (11:45)
[2017-03-06] MEDS ORDERED: NACL 0.9% 100 ML IV PRN (11:51)
--- NOTE | 2017-03-06 11:52 | Consultation ---
History of Present Illness - History of Present Illness Thank you for the consultation Patient was evaluated today Assessment and plan End-stage renal disease, currently on maintenance hemodialysis Uncontrolled diabetes with possible ketoacidosis discussed with dialysis nurse to give him 1 L of half-normal saline with dialysis appears to be clinically dehydrated Avoid giving excessive amount of fluid hemodialysis alone should correct ketoacidosis Dialyzing with a relatively higher potassium bath as it may go down with correction of acidosis and hyperglycemia Very poorly compliant patient/ had similar admissions in the past Monitor parameters for Secondary hyperparathyroidism Noted to have GI bleed, but his current hemoglobin is 11.5 Bicarbonate is around 11/should correct with dialysis encephalopathy appears to be more of metabolic nature please monitor and follow Pseudohyponatremia We will continue to follow and make recommendations from renal standpoint History of present illness; Patient is a 62-year-old -[place] male who was sent to the hospital for evaluation of altered mental status and hematemesis. Currently is not able to provide any history due to altered mental status according to the current record patient has had multiple episodes of coffee-ground emesis and was also complaining of abdominal pain.. Patient also has had episodes of vomiting when I came to examine the patient he was not able to provide me any history and would barely open his eyes and look at me and go back to sleep. Evaluation here in the hospital revealed that patient was noted to have accelerated hypertension systolic blood sugar running 185 pulse rate was 108 also has had elevated potassium patient did receive a liter of normal saline bolus for dehydration and hyperglycemia and was also given antidiabetic as well as Kayexalate as potassium was noted to be 5.9 Consultation was placed for management of end-stage renal disease in the setting cough uncontrolled hyperglycemia patient was noted to be critically ill , and was in severe diabetic ketoacidosis We will continue to follow and make recommendation for renal standpoint Thank you for the consultation Review of system is positive for; Complete review of systems [place] and pertinent positives mentioned above other review of system negative Physical examination: Vitals: Reviewed General: arousable but lethargic HEENT: Oral mucosa very dry no pharyngeal erythema Neck: Supple no thyromegaly JVD or palpable mass Chest examination: Clear to auscultation no crackles rales or wheezes Heart: Regular rate and rhythm S1-S2 heard no S3-S4 Abdomen: Soft non tender bowel sounds present no renal bruit no suprapubic mass no CVA tenderness Extremities: Skin appears to be very dry mild peripheral edema no peripheral cyanosis Endocrine: No thyromegaly nodular mass or changes of myxedema Psychiatry: arousable but goes back to sleep no distress no agitation Back: Non tender thoracolumbar spine Dermatology: appears to be very dry skin minimal edema neurology: Patient is arousable but very lethargic Past History Past Medical History: diabetes, dialysis, ESRD, hypertension, hyperlipidemia, renal failure Past Surgical History: Other (av graft) Social history: full code, other (SNF). denies: smoking, alcohol abuse, prescription drug abuse Family history: hypertension Medications and Allergies Allergies Allergy/AdvReac Type Severity Reaction Status Date / Time No Known Allergies Allergy Unverified 08/02/13 10:39 Home Medications Medication Instructions Recorded Confirmed Last Taken Type Acetaminophen [Tylenol] 1,000 mg PO Q8H 12/12/16 03/06/17 Unknown History Aspirin [Aspirin TAB] 1 tab PO DAILY 12/12/16 03/06/17 Unknown History AtorvaSTATin [Lipitor] 40 mg PO DAILY 12/12/16 03/06/17 Unknown History Brimonidine/Timolol 0.2-0.5% 1 drops OP Q12H 12/12/16 03/06/17 Unknown History [Combigan 0.2-0.5%] Clonidine 0.2 mg PO DAILY 12/12/16 03/06/17 Unknown History Immodium 2 caplet PO BID PRN 12/12/16 03/06/17 Unknown History Insulin Aspart [NovoLOG Flexpen] 0 units SQ AC 12/12/16 03/06/17 Unknown History Insulin Glargine [Lantus] 20 unit SUB-Q QHS 12/12/16 03/06/17 Unknown History Latanoprost 0.005% [Xalatan 0.005%] 1 drop OP QPM 12/12/16 03/06/17 Unknown History Losartan [Cozaar] 50 mg PO QDAY 12/12/16 03/06/17 Unknown History Metoclopramide [Reglan] 10 mg PO TID 12/12/16 03/06/17 Unknown History Metoprolol [Lopressor] 25 mg PO BID 12/12/16 03/06/17 Unknown History Minoxidil [Loniten] 2.5 mg PO QDAY 12/12/16 03/06/17 Unknown History Mirtazapine [Remeron] 7.5 mg PO HS 12/12/16 03/06/17 Unknown History Pantoprazole [Protonix] 40 mg PO BID 12/12/16 03/06/17 Unknown History amLODIPine [Norvasc] 10 mg PO DAILY 12/12/16 03/06/17 Unknown History Active Meds: Active Medications Amlodipine Besylate (Norvasc) 10 mg PO DAILY NICHOLAS Atorvastatin Calcium (Lipitor) 40 mg PO DAILY NICHOLAS Brimonidine/Timolol (Combigan 0.2-0.5%) 1 drops OD Q12H NICHOLAS Clonidine HCl (Catapres) 0.2 mg PO QDAY NICHOLAS Dextrose (D50w (25gm)) 0 ml IV PRN PRN PRN Reason: Hypoglycemia Dextrose (D50w (25gm)) 0 ml IV ONCE PRN PRN Reason: Hypoglycemia Famotidine (Pepcid) 20 mg IV QDAY NICHOLAS Insulin Human Regular 100 (units/ Sodium Chloride) 100 mls @ 1 mls/hr IV TITR NICHOLAS; 1 UNITS/HR PRN Reason: Protocol Last Titration: 03/06/17 10:56 Dose: 11 units/hr, 11 mls/hr Potassium Chloride/Dextrose/Sod Cl (D5w/0.45% Nacl/Kcl 20 Meq) 20 meq in 1,000 mls @ 125 mls/hr IV DIRECT NICHOLAS Insulin Human Regular 100 (units/ Sodium Chloride) 100 mls @ 1 mls/hr IV TITR NICHOLAS; 1 UNITS/HR PRN Reason: Protocol Piperacillin Sod/Tazobactam Sod (Zosyn/Ns 2.25 Gm/50ml) 2.25 gm in 50 mls @ 100 mls/hr IV Q8HR NICHOLAS PRN Reason: Protocol Vancomycin HCl 1,750 mg/ (Sodium Chloride) 535 mls @ 333.333 mls/hr IV ONCE.ED ONE Stop: 03/06/17 13:21 Latanoprost (Xalatan 0.005%) 1 drops OD QPM NICHOLAS Losartan Potassium (Cozaar) 50 mg PO QDAY NICHOLAS Metoprolol Tartrate (Lopressor) 25 mg PO BID NICHOLAS Minoxidil (Loniten) 2.5 mg PO QDAY NICHOLAS Mirtazapine (Remeron) 7.5 mg PO HS NICHOLAS Pantoprazole Sodium (Protonix) 40 mg IV BID NICHOLAS Exam - Vital Signs Vital signs: Vital Signs Temp Pulse Resp BP Pulse Ox 98.8 F 108 H 16 185/95 98 03/06/17 05:02 03/06/17 05:02 03/06/17 05:02 03/06/17 05:02 03/06/17 05:02 Results - Lab Results 03/09/17 04:13 03/09/17 04:13 Most recent lab results Calcium 8.0 mg/dL (8.4-10.2) L 03/06/17 10:09 Phosphorus 8.50 mg/dL (2.5-4.5) H 03/06/17 10:09 Magnesium 2.00 mg/dL (1.7-2.3) 03/06/17 10:09
[2017-03-06] MEDS ORDERED: VANCOMYCIN/NS 1 GM/250 ML 1 GM/250 ML BAG IV SCH (12:00)
[2017-03-06 12:47] LABS: BUN/Creatinine Ratio 9.12; Calcium 8.3 mg/dL (8.4-10.2); Chloride 86.1 mmol/L (98-107); Potassium 4.6 mmol/L (3.6-5.0)
[2017-03-06 13:18] LABS: ISTAT Base Excess -7; ISTAT HCO3 19.7; ISTAT PO2 83 (80-105); ISTAT SO2 95; ISTAT TCO2 21
[2017-03-06 13:37] LABS: BUN/Creatinine Ratio 9.23
[2017-03-06] MEDS ORDERED: ZOSYN/NS 2.25 GM/50ML 2.25 GM/50 ML BAG IV SCH (14:00)
[2017-03-06 14:03] LABS: Chloride 87.9 mmol/L (98-107)
[2017-03-06 14:13] LABS: Potassium 6.2 mmol/L (3.6-5.0)
[2017-03-06] MEDS ORDERED: SODIUM BICARBONATE IV ONE ×2 (14:13→14:21)
--- NOTE | 2017-03-06 15:57 | History and Physical Report ---
History of Present Illness Date of examination: 03/06/17 Date of admission: 03/06/17 10:11 Chief complaint: Altered level of consciousness and uncontrolled blood sugars as well as coffee- ground emesis History of present illness: 62-year-old male patient resident of [facility] significant past medical history of type 2 diabetes mellitus hold CVA with residual weakness hypertension end-stage renal disease on hemodialysis presents to the emergency room with altered level of consciousness and coffee ground emesis patient was initially evaluated noted to be in acute diabetic ketoacidosis DKA pathway was initiated. Patient has history of coffee-ground emesis, hemodynamically stable, Hyperkalemia which is being corrected At the time of my evaluation patient patient is appended and lethargic, minimally communicative No history is history of chest pain or shortness. No history suggestive of nausea vomiting or abdominal pain Past History Past Medical History: diabetes, dialysis, ESRD, hypertension, hyperlipidemia, renal failure Past Surgical History: Other (av graft) Social history: full code, other (SNF). denies: smoking, alcohol abuse, prescription drug abuse Family history: hypertension Medications and Allergies Allergies Allergy/AdvReac Type Severity Reaction Status Date / Time No Known Allergies Allergy Unverified 08/02/13 10:39 Home Medications Medication Instructions Recorded Confirmed Last Taken Type Acetaminophen [Tylenol] 1,000 mg PO Q8H 12/12/16 03/06/17 Unknown History Aspirin [Aspirin TAB] 1 tab PO DAILY 12/12/16 03/06/17 Unknown History AtorvaSTATin [Lipitor] 40 mg PO DAILY 12/12/16 03/06/17 Unknown History Brimonidine/Timolol 0.2-0.5% 1 drops OP Q12H 12/12/16 03/06/17 Unknown History [Combigan 0.2-0.5%] Clonidine 0.2 mg PO DAILY 12/12/16 03/06/17 Unknown History Immodium 2 caplet PO BID PRN 12/12/16 03/06/17 Unknown History Insulin Aspart [NovoLOG Flexpen] 0 units SQ AC 12/12/16 03/06/17 Unknown History Insulin Glargine [Lantus] 20 unit SUB-Q QHS 12/12/16 03/06/17 Unknown History Latanoprost 0.005% [Xalatan 0.005%] 1 drop OP QPM 12/12/16 03/06/17 Unknown History Losartan [Cozaar] 50 mg PO QDAY 12/12/16 03/06/17 Unknown History Metoclopramide [Reglan] 10 mg PO TID 12/12/16 03/06/17 Unknown History Metoprolol [Lopressor] 25 mg PO BID 12/12/16 03/06/17 Unknown History Minoxidil [Loniten] 2.5 mg PO QDAY 12/12/16 03/06/17 Unknown History Mirtazapine [Remeron] 7.5 mg PO HS 12/12/16 03/06/17 Unknown History Pantoprazole [Protonix] 40 mg PO BID 12/12/16 03/06/17 Unknown History amLODIPine [Norvasc] 10 mg PO DAILY 12/12/16 03/06/17 Unknown History Active Meds: Active Medications Amlodipine Besylate (Norvasc) 10 mg PO DAILY [facility] Atorvastatin Calcium (Lipitor) 40 mg PO DAILY [facility] Brimonidine/Timolol (Combigan 0.2-0.5%) 1 drops OD Q12H [facility] Clonidine HCl (Catapres) 0.2 mg PO QDAY [facility] Dextrose (D50w (25gm)) 0 ml IV PRN PRN PRN Reason: Hypoglycemia Dextrose (D50w (25gm)) 0 ml IV ONCE PRN PRN Reason: Hypoglycemia Famotidine (Pepcid) 20 mg IV QDAY [facility] Insulin Human Regular 100 (units/ Sodium Chloride) 100 mls @ 1 mls/hr IV TITR [facility]; 1 UNITS/HR PRN Reason: Protocol Last Titration: 03/06/17 14:41 Dose: 8 units/hr, 8 mls/hr Potassium Chloride/Dextrose/Sod Cl (D5w/0.45% Nacl/Kcl 20 Meq) 20 meq in 1,000 mls @ 125 mls/hr IV DIRECT [facility] Insulin Human Regular 100 (units/ Sodium Chloride) 100 mls @ 1 mls/hr IV TITR [facility]; 1 UNITS/HR PRN Reason: Protocol Piperacillin Sod/Tazobactam Sod (Zosyn/Ns 2.25 Gm/50ml) 2.25 gm in 50 mls @ 100 mls/hr IV Q8HR [facility] PRN Reason: Protocol Sodium Chloride (Nacl 0.9%) 100 mls @ 999 mls/hr IV ANA PRN PRN Reason: Hypotension Latanoprost (Xalatan 0.005%) 1 drops OD QPM [facility] Losartan Potassium (Cozaar) 50 mg PO QDAY [facility] Metoprolol Tartrate (Lopressor) 25 mg PO BID [facility] Minoxidil (Loniten) 2.5 mg PO QDAY [facility] Mirtazapine (Remeron) 7.5 mg PO HS [facility] Pantoprazole Sodium (Protonix) 40 mg IV BID [facility] Review of Systems ROS unobtainable: due to mental status Exam - Constitutional Vitals: Temp Pulse Resp BP Pulse Ox 97.8 F 97 H 12 176/99 100 03/06/17 09:40 03/06/17 13:30 03/06/17 13:30 03/06/17 13:30 03/06/17 13:30 General appearance: Present: mild distress, cachectic, other (minimally communicative) - EENT Eyes: Present: PERRL, EOM intact - Neck Neck: Present: supple, normal ROM - Respiratory Respiratory effort: normal Respiratory: bilateral: diminished, negative: rales, rhonchi, wheezing - Cardiovascular Rhythm: regular Heart Sounds: Present: S1 & S2 - Extremities Extremities: no ischemia, pulses intact, pulses symmetrical Peripheral Pulses: within normal limits - Abdominal General gastrointestinal: Present: soft, non-tender, non-distended, normal bowel sounds - Integumentary Integumentary: Present: clear, warm - Psychiatric Psychiatric: cooperative (minimally communicative), other (noncommunicative) - Neurologic Neurologic: moves all extremities, other (minimally communicative) Results - Labs CBC & Chem 7: 03/06/17 05:35 03/06/17 15:30 Labs: Abnormal lab results 03/06/17 03/06/17 03/06/17 Range/Units 12:23 13:03 13:12 POC ABG pH 7.300 L (7.35-7.45) Sodium 133 L 132 L (137-145) mmol/L Potassium 6.2 H* D (3.6-5.0) mmol/L Chloride 86.1 L 87.9 L (98-107) mmol/L Carbon Dioxide 15 L 16 L (22-30) mmol/L BUN 83 H 84 H (9-20) mg/dL Creatinine 9.1 H 9.1 H (0.8-1.5) mg/dL Glucose 820 H* 730 H* (75-100) mg/dL Calcium 8.3 L 8.0 L (8.4-10.2) mg/dL Assessment and Plan --Altered level of consciousness/toxic metabolic encephalopathy Multifactorial, diabetic ketoacidosis, end-stage renal disease, underlying sepsis, hyperkalemia --Diabetic ketoacidosis with high anion gap Initiate DKA pathway ,Nothing by mouth, insulin drip per protocol, cautious IV hydration in view of end-stage renal disease Closely monitor electrolytes and adjust as needed --Hyperkalemia; calcium gluconate Hemodialysis per schedule, nephrology consult. --End-stage renal disease on hemodialysis Consults nephrology, HD per schedule --lactic acidosis; rule out sepsis, antibiotics Cultures, consider ID evaluation if needed --Coffee-ground emesis, patient is hemodynamically stable, nothing by mouth IV Protonix, GI consultation for possible endoscopy Closely monitor H&H and transfuse as needed --Malignant Hypertension; resume home antihypertensives And when necessary hydralazine/labetalol, closely monitor --DVT prophylaxis; no pharmacologic anticoagulation in view of GI bleeding --DC planning. Case management Plan of care discussed with the patient's brother and his nurse Critical care time 40 minutes The high probability of a clinically significant, sudden or life threatening deterioration of the [endocrine ,neurology, cardiovascular, nephrology] system(s ) required my full and direct attention, intervention and personal management. The aggregate critical care time was [40] minutes. This time is in addition to time spent performing reported procedures but includes the following: [x] Data Review and interpretation [x] Patient assessment and monitoring of vital signs [x] Documentation [x] Medication orders and managementDVT prophylaxis And discussions with the family as well as the nursing staff
[2017-03-06 16:06] LABS: BUN/Creatinine Ratio 9.33; Calcium 8.3 mg/dL (8.4-10.2); Chloride 90.2 mmol/L (98-107); Potassium 4.5 mmol/L (3.6-5.0)
--- NOTE | 2017-03-06 19:50 | Consultation ---
History of Present Illness Consult date: 03/06/17 Requesting physician: WALTER DALLAS Reason for consult: other (DKA; Acute GI Bleed) History of present illness: PULMONARY/CCM CONSULT NOTE (Full dictation # [id number]) Please see dictated notes for full details Past History Past Medical History: diabetes, dialysis, ESRD, hypertension, hyperlipidemia, renal failure Past Surgical History: Other (av graft) Social history: full code, other (SNF). denies: smoking, alcohol abuse, prescription drug abuse Family history: hypertension Medications and Allergies Allergies Allergy/AdvReac Type Severity Reaction Status Date / Time No Known Allergies Allergy Unverified 08/02/13 10:39 Home Medications Medication Instructions Recorded Confirmed Last Taken Type Acetaminophen [Tylenol] 1,000 mg PO Q8H 12/12/16 03/06/17 Unknown History Aspirin [Aspirin TAB] 1 tab PO DAILY 12/12/16 03/06/17 Unknown History AtorvaSTATin [Lipitor] 40 mg PO DAILY 12/12/16 03/06/17 Unknown History Brimonidine/Timolol 0.2-0.5% 1 drops OP Q12H 12/12/16 03/06/17 Unknown History [Combigan 0.2-0.5%] Clonidine 0.2 mg PO DAILY 12/12/16 03/06/17 Unknown History Immodium 2 caplet PO BID PRN 12/12/16 03/06/17 Unknown History Insulin Aspart [NovoLOG Flexpen] 0 units SQ AC 12/12/16 03/06/17 Unknown History Insulin Glargine [Lantus] 20 unit SUB-Q QHS 12/12/16 03/06/17 Unknown History Latanoprost 0.005% [Xalatan 0.005%] 1 drop OP QPM 12/12/16 03/06/17 Unknown History Losartan [Cozaar] 50 mg PO QDAY 12/12/16 03/06/17 Unknown History Metoclopramide [Reglan] 10 mg PO TID 12/12/16 03/06/17 Unknown History Metoprolol [Lopressor] 25 mg PO BID 12/12/16 03/06/17 Unknown History Minoxidil [Loniten] 2.5 mg PO QDAY 12/12/16 03/06/17 Unknown History Mirtazapine [Remeron] 7.5 mg PO HS 12/12/16 03/06/17 Unknown History Pantoprazole [Protonix] 40 mg PO BID 12/12/16 03/06/17 Unknown History amLODIPine [Norvasc] 10 mg PO DAILY 12/12/16 03/06/17 Unknown History Active Meds: Active Medications Amlodipine Besylate (Norvasc) 10 mg PO DAILY [facility] Atorvastatin Calcium (Lipitor) 40 mg PO DAILY [facility] Brimonidine/Timolol (Combigan 0.2-0.5%) 1 drops OD Q12H [facility] Clonidine HCl (Catapres) 0.2 mg PO QDAY [facility] Dextrose (D50w (25gm)) 0 ml IV PRN PRN PRN Reason: Hypoglycemia Dextrose (D50w (25gm)) 0 ml IV ONCE PRN PRN Reason: Hypoglycemia Famotidine (Pepcid) 20 mg IV QDAY [facility] Insulin Human Regular 100 (units/ Sodium Chloride) 100 mls @ 1 mls/hr IV TITR [facility]; 1 UNITS/HR PRN Reason: Protocol Last Titration: 03/06/17 14:41 Dose: 8 units/hr, 8 mls/hr Potassium Chloride/Dextrose/Sod Cl (D5w/0.45% Nacl/Kcl 20 Meq) 20 meq in 1,000 mls @ 125 mls/hr IV DIRECT [facility] Insulin Human Regular 100 (units/ Sodium Chloride) 100 mls @ 1 mls/hr IV TITR [facility]; 1 UNITS/HR PRN Reason: Protocol Piperacillin Sod/Tazobactam Sod (Zosyn/Ns 2.25 Gm/50ml) 2.25 gm in 50 mls @ 100 mls/hr IV Q8HR [facility] PRN Reason: Protocol Sodium Chloride (Nacl 0.9%) 100 mls @ 999 mls/hr IV ANA PRN PRN Reason: Hypotension Latanoprost (Xalatan 0.005%) 1 drops OD QPM [facility] Losartan Potassium (Cozaar) 50 mg PO QDAY [facility] Metoprolol Tartrate (Lopressor) 25 mg PO BID [facility] Minoxidil (Loniten) 2.5 mg PO QDAY [facility] Mirtazapine (Remeron) 7.5 mg PO HS [facility] Pantoprazole Sodium (Protonix) 40 mg IV BID [facility] Physical Examination Vital signs: Vital Signs Temp Pulse Resp BP Pulse Ox 98.8 F 108 H 16 185/95 98 03/06/17 05:02 03/06/17 05:02 03/06/17 05:02 03/06/17 05:02 03/06/17 05:02 Results - Laboratory Findings CBC and BMP: 03/07/17 03:45 03/07/17 10:29 ABG POC ABG pH 7.300 (7.35-7.45) L 03/06/17 13:12 POC ABG pCO2 40.0 (35-45) 03/06/17 13:12 POC ABG pO2 83 (80-105) 03/06/17 13:12 POC ABG HCO3 19.7 03/06/17 13:12 POC ABG Total CO2 21 03/06/17 13:12 POC ABG O2 Sat 95 03/06/17 13:12 PT/INR, D-dimer PT 15.2 Sec. (12.2-14.9) H 03/06/17 05:35 INR 1.14 (0.87-1.13) H 03/06/17 05:35 Abnormal lab findings: Abnormal Labs 03/06/17 03/06/17 03/06/17 12:23 13:03 13:12 POC ABG pH 7.300 L Sodium 133 L 132 L Potassium 6.2 H* D Chloride 86.1 L 87.9 L Carbon Dioxide 15 L 16 L BUN 83 H 84 H Creatinine 9.1 H 9.1 H Glucose 820 H* 730 H* POC Glucose Calcium 8.3 L 8.0 L 03/06/17 03/06/17 03/06/17 15:30 16:40 17:46 POC ABG pH Sodium 136 L Potassium Chloride 90.2 L Carbon Dioxide 20 L BUN 84 H Creatinine 9.0 H Glucose 571 H* POC Glucose 413 H 332 H Calcium 8.3 L
[2017-03-06] MEDS ORDERED: ROCEPHIN/NS 1 GM/50 ML 1 GM/50 ML BAG IV SCH (22:00)
[2017-03-06] MEDS ORDERED: PROTONIX IV SCH (22:00)
[2017-03-06] MEDS: CATAPRES-TTS PATCH TD SCH (23:10)
[2017-03-07] MEDS: PEPCID IV SCH ×2 (00:10→13:55)
[2017-03-07] MEDS: COMBIGAN 0.2-0.5% OD SCH ×3 (01:07→21:56)
[2017-03-07 04:09] LABS: Hematocrit 37.3 % (35.5-45.6); Hemoglobin 12.4 gm/dl (11.8-15.2); Mean Corpuscular HGB Conc 33 % (32-34); Mean Corpuscular Hemoglobin 30 pg (28-32); Mean Corpuscular Volume 90 fl (84-94); Platelet Count 254 K/mm3 (140-440); Red Blood Count 4.14 M/mm3 (3.65-5.03); Red Cell Distribution Width 16.7 % (13.2-15.2); White Blood Count 8.7 K/mm3 (4.5-11.0)
[2017-03-07 04:43] LABS: BUN/Creatinine Ratio 7.73; Calcium 8.5 mg/dL (8.4-10.2); Chloride 95.3 mmol/L (98-107); Magnesium 1.6 mg/dL (1.7-2.3); Phosphorous 4.4 mg/dL (2.5-4.5); Potassium 3.9 mmol/L (3.6-5.0)
[2017-03-07 05:21] LABS: Basophils % (Manual) 0 % (0.0-1.8); Blastocytes % (Manual) 0 %
[2017-03-07 05:22] LABS: Diff Status Complete; Eosinophils % (Manual) 0 % (0.0-4.3); Platelet Estimate Consistent w Auto; RBC Morphology Normal
[2017-03-07] MEDS ORDERED: NACL 0.9% 1000 ML 0 ML ONE (07:51)
[2017-03-07] MEDS ORDERED: NACL 0.9% 1000 ML 1,000 ML IV SCH (08:00)
--- NOTE | 2017-03-07 09:05 | Gastroenterology Progress Note ---
<DREA REYNA - Last Filed: 03/07/17 09:09> Assessment and Plan 1. GI bleed 2. coffee ground emesis 3. acute hyperkalema 4.acute hyperglycemia -HGB stable -continue to trend H&H and transfuse as needed -hold blood thinning medications -continue H2 rico -no signs of active bleeding -no recommendation for EGD at this time unless overt bleeding develops -will follow Subjective Date of service: 03/07/17 Principal diagnosis: hematemesis Interval history: Patient resting in bed, alert but confused. No signs of active bleeding overnight or this morning per nursing. Objective - Constitutional Vitals: Temp Pulse Resp BP Pulse Ox 98.5 F 93 H 16 152/96 96 03/07/17 08:32 03/07/17 08:32 03/07/17 08:32 03/07/17 08:32 03/07/17 08:32 General appearance: no acute distress - EENT Eyes: PERRL, EOM intact ENT: hearing intact - Neck Neck: supple, normal ROM - Respiratory Respiratory: bilateral: CTA - Cardiovascular Rhythm: regular Heart Sounds: Present: S1 & S2 - Extremities Extremities: No edema Extremity abnormal: other (AV graft) - Gastrointestinal General gastrointestinal: Present: soft, non-tender, non-distended, normal bowel sounds - Integumentary Integumentary: Present: warm, dry - Neurologic Neurological: disoriented - Labs CBC & Chem 7: 03/07/17 03:45 03/07/17 03:45 Labs: Laboratory Results - last 24 hr 03/06/17 03/06/17 03/06/17 12:23 13:03 13:12 WBC RBC Hgb Hct MCV MCH MCHC RDW Plt Count Add Manual Diff Total Counted Seg Neutrophils % Seg Neuts % (Manual) Band Neutrophils % Lymphocytes % (Manual) Reactive Lymphs % (Man) Monocytes % (Manual) Eosinophils % (Manual) Basophils % (Manual) Metamyelocytes % Myelocytes % Promyelocytes % Blast Cells % Nucleated RBC % Seg Neutrophils # Man Band Neutrophils # Lymphocytes # (Manual) Abs React Lymphs (Man) Monocytes # (Manual) Eosinophils # (Manual) Basophils # (Manual) Metamyelocytes # Myelocytes # Promyelocytes # Blast Cells # WBC Morphology Hypersegmented Neuts Hyposegmented Neuts Hypogranular Neuts Smudge Cells Toxic Granulation Toxic Vacuolation Dohle Bodies Pelger-Huet Anomaly Jose Rods Platelet Estimate Clumped Platelets Plt Clumps, EDTA Large Platelets Giant Platelets Platelet Satelliting Plt Morphology Comment RBC Morphology Dimorphic RBCs Polychromasia Hypochromasia Poikilocytosis Anisocytosis Microcytosis Macrocytosis Spherocytes Pappenheimer Bodies Sickle Cells Target Cells Tear Drop Cells Ovalocytes Helmet Cells [place] Bodies [place] Rings [place] Cells Bite Cells Crenated Cell Elliptocytes Acanthocytes (Spur) Rouleaux Hemoglobin C Crystals Schistocytes Malaria parasites [place] Bodies Hem Pathologist Commnt POC ABG pH 7.300 L POC ABG pCO2 40.0 POC ABG pO2 83 POC ABG HCO3 19.7 POC ABG Total CO2 21 POC ABG O2 Sat 95 POC ABG Base Excess -7 FiO2 28 Sodium 133 L 132 L Potassium 4.6 D 6.2 H* D Chloride 86.1 L 87.9 L Carbon Dioxide 15 L 16 L Anion Gap 37 34 BUN 83 H 84 H Creatinine 9.1 H 9.1 H Estimated GFR 7 7 BUN/Creatinine Ratio 9.12 9.23 Glucose 820 H* 730 H* POC Glucose Lactic Acid Calcium 8.3 L 8.0 L Phosphorus Magnesium 03/06/17 03/06/17 03/06/17 15:30 16:40 17:46 WBC RBC Hgb Hct MCV MCH MCHC RDW Plt Count Add Manual Diff Total Counted Seg Neutrophils % Seg Neuts % (Manual) Band Neutrophils % Lymphocytes % (Manual) Reactive Lymphs % (Man) Monocytes % (Manual) Eosinophils % (Manual) Basophils % (Manual) Metamyelocytes % Myelocytes % Promyelocytes % Blast Cells % Nucleated RBC % Seg Neutrophils # Man Band Neutrophils # Lymphocytes # (Manual) Abs React Lymphs (Man) Monocytes # (Manual) Eosinophils # (Manual) Basophils # (Manual) Metamyelocytes # Myelocytes # Promyelocytes # Blast Cells # WBC Morphology Hypersegmented Neuts Hyposegmented Neuts Hypogranular Neuts Smudge Cells Toxic Granulation Toxic Vacuolation Dohle Bodies Pelger-Huet Anomaly Jose Rods Platelet Estimate Clumped Platelets Plt Clumps, EDTA Large Platelets Giant Platelets Platelet Satelliting Plt Morphology Comment RBC Morphology Dimorphic RBCs Polychromasia Hypochromasia Poikilocytosis Anisocytosis Microcytosis Macrocytosis Spherocytes Pappenheimer Bodies Sickle Cells Target Cells Tear Drop Cells Ovalocytes Helmet Cells B[place] Bodies [place] Rings [place] Cells Bite Cells Crenated Cell Elliptocytes Acanthocytes (Spur) Rouleaux Hemoglobin C Crystals Schistocytes Malaria parasites [place] Bodies Hem Pathologist Commnt POC ABG pH POC ABG pCO2 POC ABG pO2 POC ABG HCO3 POC ABG Total CO2 POC ABG O2 Sat POC ABG Base Excess FiO2 Sodium 136 L Potassium 4.5 D Chloride 90.2 L Carbon Dioxide 20 L Anion Gap 30 BUN 84 H Creatinine 9.0 H Estimated GFR 7 BUN/Creatinine Ratio 9.33 Glucose 571 H* POC Glucose 413 H 332 H Lactic Acid Calcium 8.3 L Phosphorus Magnesium 03/06/17 03/06/17 03/06/17 18:42 19:33 21:19 WBC RBC Hgb Hct MCV MCH MCHC RDW Plt Count Add Manual Diff Total Counted Seg Neutrophils % Seg Neuts % (Manual) Band Neutrophils % Lymphocytes % (Manual) Reactive Lymphs % (Man) Monocytes % (Manual) Eosinophils % (Manual) Basophils % (Manual) Metamyelocytes % Myelocytes % Promyelocytes % Blast Cells % Nucleated RBC % Seg Neutrophils # Man Band Neutrophils # Lymphocytes # (Manual) Abs React Lymphs (Man) Monocytes # (Manual) Eosinophils # (Manual) Basophils # (Manual) Metamyelocytes # Myelocytes # Promyelocytes # Blast Cells # WBC Morphology Hypersegmented Neuts Hyposegmented Neuts Hypogranular Neuts Smudge Cells Toxic Granulation Toxic Vacuolation Dohle Bodies Pelger-Huet Anomaly Jose Rods Platelet Estimate Clumped Platelets Plt Clumps, EDTA Large Platelets Giant Platelets Platelet Satelliting Plt Morphology Comment RBC Morphology Dimorphic RBCs Polychromasia Hypochromasia Poikilocytosis Anisocytosis Microcytosis Macrocytosis Spherocytes Pappenheimer Bodies Sickle Cells Target Cells Tear Drop Cells Ovalocytes Helmet Cells B[place] Bodies [place] Rings [place] Cells Bite Cells Crenated Cell Elliptocytes Acanthocytes (Spur) Rouleaux Hemoglobin C Crystals Schistocytes Malaria parasites [place] Bodies Hem Pathologist Commnt POC ABG pH POC ABG pCO2 POC ABG pO2 POC ABG HCO3 POC ABG Total CO2 POC ABG O2 Sat POC ABG Base Excess FiO2 Sodium Potassium Chloride Carbon Dioxide Anion Gap BUN Creatinine Estimated GFR BUN/Creatinine Ratio Glucose POC Glucose 222 H 142 H 95 Lactic Acid Calcium Phosphorus Magnesium 03/06/17 03/06/17 03/07/17 21:30 23:20 00:05 WBC RBC Hgb Hct MCV MCH MCHC RDW Plt Count Add Manual Diff Total Counted Seg Neutrophils % Seg Neuts % (Manual) Band Neutrophils % Lymphocytes % (Manual) Reactive Lymphs % (Man) Monocytes % (Manual) Eosinophils % (Manual) Basophils % (Manual) Metamyelocytes % Myelocytes % Promyelocytes % Blast Cells % Nucleated RBC % Seg Neutrophils # Man Band Neutrophils # Lymphocytes # (Manual) Abs React Lymphs (Man) Monocytes # (Manual) Eosinophils # (Manual) Basophils # (Manual) Metamyelocytes # Myelocytes # Promyelocytes # Blast Cells # WBC Morphology Hypersegmented Neuts Hyposegmented Neuts Hypogranular Neuts Smudge Cells Toxic Granulation Toxic Vacuolation Dohle Bodies Pelger-Huet Anomaly Jose Rods Platelet Estimate Clumped Platelets Plt Clumps, EDTA Large Platelets Giant Platelets Platelet Satelliting Plt Morphology Comment RBC Morphology Dimorphic RBCs Polychromasia Hypochromasia Poikilocytosis Anisocytosis Microcytosis Macrocytosis Spherocytes Pappenheimer Bodies Sickle Cells Target Cells Tear Drop Cells Ovalocytes Helmet Cells [place] Bodies [place] Rings [place] Cells Bite Cells Crenated Cell Elliptocytes Acanthocytes (Spur) Rouleaux Hemoglobin C Crystals Schistocytes Malaria parasites [place] Bodies Hem Pathologist Commnt POC ABG pH POC ABG pCO2 POC ABG pO2 POC ABG HCO3 POC ABG Total CO2 POC ABG O2 Sat POC ABG Base Excess FiO2 Sodium Potassium Chloride Carbon Dioxide Anion Gap BUN Creatinine Estimated GFR BUN/Creatinine Ratio Glucose POC Glucose 89 148 H 205 H Lactic Acid Calcium Phosphorus Magnesium 03/07/17 03/07/17 03/07/17 00:58 02:05 02:45 WBC RBC Hgb Hct MCV MCH MCHC RDW Plt Count Add Manual Diff Total Counted Seg Neutrophils % Seg Neuts % (Manual) Band Neutrophils % Lymphocytes % (Manual) Reactive Lymphs % (Man) Monocytes % (Manual) Eosinophils % (Manual) Basophils % (Manual) Metamyelocytes % Myelocytes % Promyelocytes % Blast Cells % Nucleated RBC % Seg Neutrophils # Man Band Neutrophils # Lymphocytes # (Manual) Abs React Lymphs (Man) Monocytes # (Manual) Eosinophils # (Manual) Basophils # (Manual) Metamyelocytes # Myelocytes # Promyelocytes # Blast Cells # WBC Morphology Hypersegmented Neuts Hyposegmented Neuts Hypogranular Neuts Smudge Cells Toxic Granulation Toxic Vacuolation Dohle Bodies Pelger-Huet Anomaly Jose Rods Platelet Estimate Clumped Platelets Plt Clumps, EDTA Large Platelets Giant Platelets Platelet Satelliting Plt Morphology Comment RBC Morphology Dimorphic RBCs Polychromasia Hypochromasia Poikilocytosis Anisocytosis Microcytosis Macrocytosis Spherocytes Pappenheimer Bodies Sickle Cells Target Cells Tear Drop Cells Ovalocytes Helmet Cells [place] Bodies [place] Rings [place] Cells Bite Cells Crenated Cell Elliptocytes Acanthocytes (Spur) Rouleaux Hemoglobin C Crystals Schistocytes Malaria parasites [place] Bodies Hem Pathologist Commnt POC ABG pH POC ABG pCO2 POC ABG pO2 POC ABG HCO3 POC ABG Total CO2 POC ABG O2 Sat POC ABG Base Excess FiO2 Sodium Potassium Chloride Carbon Dioxide Anion Gap BUN Creatinine Estimated GFR BUN/Creatinine Ratio Glucose POC Glucose 259 H 255 H Lactic Acid 2.60 H* Calcium Phosphorus Magnesium 03/07/17 03/07/17 03/07/17 03:45 03:45 03:45 WBC 8.7 RBC 4.14 Hgb 12.4 Hct 37.3 MCV 90 D MCH 30 MCHC 33 RDW 16.7 H Plt Count 254 Add Manual Diff Complete Total Counted 100 Seg Neutrophils % Handkerchief Presser Seg Neuts % (Manual) 79.0 H Band Neutrophils % 8.0 Lymphocytes % (Manual) 5.0 L Reactive Lymphs % (Man) 0 Monocytes % (Manual) 8.0 H Eosinophils % (Manual) 0 Basophils % (Manual) 0 Metamyelocytes % 0 Myelocytes % 0 Promyelocytes % 0 Blast Cells % 0 Nucleated RBC % Not Reportable Seg Neutrophils # Man 6.9 Band Neutrophils # 0.7 Lymphocytes # (Manual) 0.4 L Abs React Lymphs (Man) 0.0 Monocytes # (Manual) 0.7 Eosinophils # (Manual) 0.0 Basophils # (Manual) 0.0 Metamyelocytes # 0.0 Myelocytes # 0.0 Promyelocytes # 0.0 Blast Cells # 0.0 WBC Morphology Not Reportable Hypersegmented Neuts Not Reportable Hyposegmented Neuts Not Reportable Hypogranular Neuts Not Reportable Smudge Cells Not Reportable Toxic Granulation Not Reportable Toxic Vacuolation Not Reportable Dohle Bodies Not Reportable Pelger-Huet Anomaly Not Reportable Jose Rods Not Reportable Platelet Estimate Consistent w auto Clumped Platelets Not Reportable Plt Clumps, EDTA Not Reportable Large Platelets Not Reportable Giant Platelets Not Reportable Platelet Satelliting Not Reportable Plt Morphology Comment Not Reportable RBC Morphology Normal Dimorphic RBCs Not Reportable Polychromasia Not Reportable Hypochromasia Not Reportable Poikilocytosis Not Reportable Anisocytosis Not Reportable Microcytosis Not Reportable Macrocytosis Not Reportable Spherocytes Not Reportable Pappenheimer Bodies Not Reportable Sickle Cells Not Reportable Target Cells Not Reportable Tear Drop Cells Not Reportable Ovalocytes Not Reportable Helmet Cells Not Reportable B[place] Bodies Not Reportable [place] Rings Not Reportable [place] Cells Not Reportable Bite Cells Not Reportable Crenated Cell Not Reportable Elliptocytes Not Reportable Acanthocytes (Spur) Not Reportable Rouleaux Not Reportable Hemoglobin C Crystals Not Reportable Schistocytes Not Reportable Malaria parasites Not Reportable [place] Bodies Not Reportable Hem Pathologist Commnt No POC ABG pH POC ABG pCO2 POC ABG pO2 POC ABG HCO3 POC ABG Total CO2 POC ABG O2 Sat POC ABG Base Excess FiO2 Sodium 139 Potassium 3.9 Chloride 95.3 L Carbon Dioxide 25 Anion Gap 23 BUN 41 H Creatinine 5.3 H Estimated GFR 13 BUN/Creatinine Ratio 7.73 Glucose 179 H POC Glucose Lactic Acid Calcium 8.5 Phosphorus 4.40 D Magnesium 1.60 L 03/07/17 03/07/17 03/07/17 03:53 05:09 05:52 WBC RBC Hgb Hct MCV MCH MCHC RDW Plt Count Add Manual Diff Total Counted Seg Neutrophils % Seg Neuts % (Manual) Band Neutrophils % Lymphocytes % (Manual) Reactive Lymphs % (Man) Monocytes % (Manual) Eosinophils % (Manual) Basophils % (Manual) Metamyelocytes % Myelocytes % Promyelocytes % Blast Cells % Nucleated RBC % Seg Neutrophils # Man Band Neutrophils # Lymphocytes # (Manual) Abs React Lymphs (Man) Monocytes # (Manual) Eosinophils # (Manual) Basophils # (Manual) Metamyelocytes # Myelocytes # Promyelocytes # Blast Cells # WBC Morphology Hypersegmented Neuts Hyposegmented Neuts Hypogranular Neuts Smudge Cells Toxic Granulation Toxic Vacuolation Dohle Bodies Pelger-Huet Anomaly Jose Rods Platelet Estimate Clumped Platelets Plt Clumps, EDTA Large Platelets Giant Platelets Platelet Satelliting Plt Morphology Comment RBC Morphology Dimorphic RBCs Polychromasia Hypochromasia Poikilocytosis Anisocytosis Microcytosis Macrocytosis Spherocytes Pappenheimer Bodies Sickle Cells Target Cells Tear Drop Cells Ovalocytes Helmet Cells B[place] Bodies [place] Rings [place] Cells Bite Cells Crenated Cell Elliptocytes Acanthocytes (Spur) Rouleaux Hemoglobin C Crystals Schistocytes Malaria parasites [place] Bodies Hem Pathologist Commnt POC ABG pH POC ABG pCO2 POC ABG pO2 POC ABG HCO3 POC ABG Total CO2 POC ABG O2 Sat POC ABG Base Excess FiO2 Sodium Potassium Chloride Carbon Dioxide Anion Gap BUN Creatinine Estimated GFR BUN/Creatinine Ratio Glucose POC Glucose 187 H 130 H 75 Lactic Acid Calcium Phosphorus Magnesium <CHOCO MAK - Last Filed: 03/07/17 09:32> Assessment and Plan Patient seen and examined. Agree with note above. Patient in ICU for treatment of DKA. He remains confused/altered, but improved some from yesterday. No signs of overt GI bleeding and H/H is normal. No plans for endoscopy at this time unless patient were to develop further bleeding episodes. Will sign off, please call back if concern for further bleeding or any other issues/questions. Objective - Constitutional Vitals: Temp Pulse Resp BP Pulse Ox 98.5 F 93 H 16 152/96 96 03/07/17 08:32 03/07/17 08:32 03/07/17 08:32 03/07/17 08:32 03/07/17 08:32 - Labs CBC & Chem 7: 03/07/17 03:45 03/07/17 03:45 Labs: Laboratory Results - last 24 hr 03/06/17 03/06/17 03/06/17 12:23 13:03 13:12 WBC RBC Hgb Hct MCV MCH MCHC RDW Plt Count Add Manual Diff Total Counted Seg Neutrophils % Seg Neuts % (Manual) Band Neutrophils % Lymphocytes % (Manual) Reactive Lymphs % (Man) Monocytes % (Manual) Eosinophils % (Manual) Basophils % (Manual) Metamyelocytes % Myelocytes % Promyelocytes % Blast Cells % Nucleated RBC % Seg Neutrophils # Man Band Neutrophils # Lymphocytes # (Manual) Abs React Lymphs (Man) Monocytes # (Manual) Eosinophils # (Manual) Basophils # (Manual) Metamyelocytes # Myelocytes # Promyelocytes # Blast Cells # WBC Morphology Hypersegmented Neuts Hyposegmented Neuts Hypogranular Neuts Smudge Cells Toxic Granulation Toxic Vacuolation Dohle Bodies Pelger-Huet Anomaly Jose Rods Platelet Estimate Clumped Platelets Plt Clumps, EDTA Large Platelets Giant Platelets Platelet Satelliting Plt Morphology Comment RBC Morphology Dimorphic RBCs Polychromasia Hypochromasia Poikilocytosis Anisocytosis Microcytosis Macrocytosis Spherocytes Pappenheimer Bodies Sickle Cells Target Cells Tear Drop Cells Ovalocytes Helmet Cells [place] Bodies [place] Rings [place] Cells Bite Cells Crenated Cell Elliptocytes Acanthocytes (Spur) Rouleaux Hemoglobin C Crystals Schistocytes Malaria parasites [place] Bodies Hem Pathologist Commnt POC ABG pH 7.300 L POC ABG pCO2 40.0 POC ABG pO2 83 POC ABG HCO3 19.7 POC ABG Total CO2 21 POC ABG O2 Sat 95 POC ABG Base Excess -7 FiO2 28 Sodium 133 L 132 L Potassium 4.6 D 6.2 H* D Chloride 86.1 L 87.9 L Carbon Dioxide 15 L 16 L Anion Gap 37 34 BUN 83 H 84 H Creatinine 9.1 H 9.1 H Estimated GFR 7 7 BUN/Creatinine Ratio 9.12 9.23 Glucose 820 H* 730 H* POC Glucose Lactic Acid Calcium 8.3 L 8.0 L Phosphorus Magnesium 03/06/17 03/06/17 03/06/17 15:30 16:40 17:46 WBC RBC Hgb Hct MCV MCH MCHC RDW Plt Count Add Manual Diff Total Counted Seg Neutrophils % Seg Neuts % (Manual) Band Neutrophils % Lymphocytes % (Manual) Reactive Lymphs % (Man) Monocytes % (Manual) Eosinophils % (Manual) Basophils % (Manual) Metamyelocytes % Myelocytes % Promyelocytes % Blast Cells % Nucleated RBC % Seg Neutrophils # Man Band Neutrophils # Lymphocytes # (Manual) Abs React Lymphs (Man) Monocytes # (Manual) Eosinophils # (Manual) Basophils # (Manual) Metamyelocytes # Myelocytes # Promyelocytes # Blast Cells # WBC Morphology Hypersegmented Neuts Hyposegmented Neuts Hypogranular Neuts Smudge Cells Toxic Granulation Toxic Vacuolation Dohle Bodies Pelger-Huet Anomaly Jose Rods Platelet Estimate Clumped Platelets Plt Clumps, EDTA Large Platelets Giant Platelets Platelet Satelliting Plt Morphology Comment RBC Morphology Dimorphic RBCs Polychromasia Hypochromasia Poikilocytosis Anisocytosis Microcytosis Macrocytosis Spherocytes Pappenheimer Bodies Sickle Cells Target Cells Tear Drop Cells Ovalocytes Helmet Cells B[place] Bodies [place] Rings [place] Cells Bite Cells Crenated Cell Elliptocytes Acanthocytes (Spur) Rouleaux Hemoglobin C Crystals Schistocytes Malaria parasites [place] Bodies Hem Pathologist Commnt POC ABG pH POC ABG pCO2 POC ABG pO2 POC ABG HCO3 POC ABG Total CO2 POC ABG O2 Sat POC ABG Base Excess FiO2 Sodium 136 L Potassium 4.5 D Chloride 90.2 L Carbon Dioxide 20 L Anion Gap 30 BUN 84 H Creatinine 9.0 H Estimated GFR 7 BUN/Creatinine Ratio 9.33 Glucose 571 H* POC Glucose 413 H 332 H Lactic Acid Calcium 8.3 L Phosphorus Magnesium 03/06/17 03/06/17 03/06/17 18:42 19:33 21:19 WBC RBC Hgb Hct MCV MCH MCHC RDW Plt Count Add Manual Diff Total Counted Seg Neutrophils % Seg Neuts % (Manual) Band Neutrophils % Lymphocytes % (Manual) Reactive Lymphs % (Man) Monocytes % (Manual) Eosinophils % (Manual) Basophils % (Manual) Metamyelocytes % Myelocytes % Promyelocytes % Blast Cells % Nucleated RBC % Seg Neutrophils # Man Band Neutrophils # Lymphocytes # (Manual) Abs React Lymphs (Man) Monocytes # (Manual) Eosinophils # (Manual) Basophils # (Manual) Metamyelocytes # Myelocytes # Promyelocytes # Blast Cells # WBC Morphology Hypersegmented Neuts Hyposegmented Neuts Hypogranular Neuts Smudge Cells Toxic Granulation Toxic Vacuolation Dohle Bodies Pelger-Huet Anomaly Jose Rods Platelet Estimate Clumped Platelets Plt Clumps, EDTA Large Platelets Giant Platelets Platelet Satelliting Plt Morphology Comment RBC Morphology Dimorphic RBCs Polychromasia Hypochromasia Poikilocytosis Anisocytosis Microcytosis Macrocytosis Spherocytes Pappenheimer Bodies Sickle Cells Target Cells Tear Drop Cells Ovalocytes Helmet Cells B[place] Bodies [place] Rings [place] Cells Bite Cells Crenated Cell Elliptocytes Acanthocytes (Spur) Rouleaux Hemoglobin C Crystals Schistocytes Malaria parasites [place] Bodies Hem Pathologist Commnt POC ABG pH POC ABG pCO2 POC ABG pO2 POC ABG HCO3 POC ABG Total CO2 POC ABG O2 Sat POC ABG Base Excess FiO2 Sodium Potassium Chloride Carbon Dioxide Anion Gap BUN Creatinine Estimated GFR BUN/Creatinine Ratio Glucose POC Glucose 222 H 142 H 95 Lactic Acid Calcium Phosphorus Magnesium 03/06/17 03/06/17 03/07/17 21:30 23:20 00:05 WBC RBC Hgb Hct MCV MCH MCHC RDW Plt Count Add Manual Diff Total Counted Seg Neutrophils % Seg Neuts % (Manual) Band Neutrophils % Lymphocytes % (Manual) Reactive Lymphs % (Man) Monocytes % (Manual) Eosinophils % (Manual) Basophils % (Manual) Metamyelocytes % Myelocytes % Promyelocytes % Blast Cells % Nucleated RBC % Seg Neutrophils # Man Band Neutrophils # Lymphocytes # (Manual) Abs React Lymphs (Man) Monocytes # (Manual) Eosinophils # (Manual) Basophils # (Manual) Metamyelocytes # Myelocytes # Promyelocytes # Blast Cells # WBC Morphology Hypersegmented Neuts Hyposegmented Neuts Hypogranular Neuts Smudge Cells Toxic Granulation Toxic Vacuolation Dohle Bodies Pelger-Huet Anomaly Jose Rods Platelet Estimate Clumped Platelets Plt Clumps, EDTA Large Platelets Giant Platelets Platelet Satelliting Plt Morphology Comment RBC Morphology Dimorphic RBCs Polychromasia Hypochromasia Poikilocytosis Anisocytosis Microcytosis Macrocytosis Spherocytes Pappenheimer Bodies Sickle Cells Target Cells Tear Drop Cells Ovalocytes Helmet Cells B[place] Bodies [place] Rings [place] Cells Bite Cells Crenated Cell Elliptocytes Acanthocytes (Spur) Rouleaux Hemoglobin C Crystals Schistocytes Malaria parasites [place] Bodies Hem Pathologist Commnt POC ABG pH POC ABG pCO2 POC ABG pO2 POC ABG HCO3 POC ABG Total CO2 POC ABG O2 Sat POC ABG Base Excess FiO2 Sodium Potassium Chloride Carbon Dioxide Anion Gap BUN Creatinine Estimated GFR BUN/Creatinine Ratio Glucose POC Glucose 89 148 H 205 H Lactic Acid Calcium Phosphorus Magnesium 03/07/17 03/07/17 03/07/17 00:58 02:05 02:45 WBC RBC Hgb Hct MCV MCH MCHC RDW Plt Count Add Manual Diff Total Counted Seg Neutrophils % Seg Neuts % (Manual) Band Neutrophils % Lymphocytes % (Manual) Reactive Lymphs % (Man) Monocytes % (Manual) Eosinophils % (Manual) Basophils % (Manual) Metamyelocytes % Myelocytes % Promyelocytes % Blast Cells % Nucleated RBC % Seg Neutrophils # Man Band Neutrophils # Lymphocytes # (Manual) Abs React Lymphs (Man) Monocytes # (Manual) Eosinophils # (Manual) Basophils # (Manual) Metamyelocytes # Myelocytes # Promyelocytes # Blast Cells # WBC Morphology Hypersegmented Neuts Hyposegmented Neuts Hypogranular Neuts Smudge Cells Toxic Granulation Toxic Vacuolation Dohle Bodies Pelger-Huet Anomaly Jose Rods Platelet Estimate Clumped Platelets Plt Clumps, EDTA Large Platelets Giant Platelets Platelet Satelliting Plt Morphology Comment RBC Morphology Dimorphic RBCs Polychromasia Hypochromasia Poikilocytosis Anisocytosis Microcytosis Macrocytosis Spherocytes Pappenheimer Bodies Sickle Cells Target Cells Tear Drop Cells Ovalocytes Helmet Cells B[place] Bodies [place] Rings [place] Cells Bite Cells Crenated Cell Elliptocytes Acanthocytes (Spur) Rouleaux Hemoglobin C Crystals Schistocytes Malaria parasites [place] Bodies Hem Pathologist Commnt POC ABG pH POC ABG pCO2 POC ABG pO2 POC ABG HCO3 POC ABG Total CO2 POC ABG O2 Sat POC ABG Base Excess FiO2 Sodium Potassium Chloride Carbon Dioxide Anion Gap BUN Creatinine Estimated GFR BUN/Creatinine Ratio Glucose POC Glucose 259 H 255 H Lactic Acid 2.60 H* Calcium Phosphorus Magnesium 03/07/17 03/07/17 03/07/17 03:45 03:45 03:45 WBC 8.7 RBC 4.14 Hgb 12.4 Hct 37.3 MCV 90 D MCH 30 MCHC 33 RDW 16.7 H Plt Count 254 Add Manual Diff Complete Total Counted 100 Seg Neutrophils % Handkerchief Presser Seg Neuts % (Manual) 79.0 H Band Neutrophils % 8.0 Lymphocytes % (Manual) 5.0 L Reactive Lymphs % (Man) 0 Monocytes % (Manual) 8.0 H Eosinophils % (Manual) 0 Basophils % (Manual) 0 Metamyelocytes % 0 Myelocytes % 0 Promyelocytes % 0 Blast Cells % 0 Nucleated RBC % Not Reportable Seg Neutrophils # Man 6.9 Band Neutrophils # 0.7 Lymphocytes # (Manual) 0.4 L Abs React Lymphs (Man) 0.0 Monocytes # (Manual) 0.7 Eosinophils # (Manual) 0.0 Basophils # (Manual) 0.0 Metamyelocytes # 0.0 Myelocytes # 0.0 Promyelocytes # 0.0 Blast Cells # 0.0 WBC Morphology Not Reportable Hypersegmented Neuts Not Reportable Hyposegmented Neuts Not Reportable Hypogranular Neuts Not Reportable Smudge Cells Not Reportable Toxic Granulation Not Reportable Toxic Vacuolation Not Reportable Dohle Bodies Not Reportable Pelger-Huet Anomaly Not Reportable Jose Rods Not Reportable Platelet Estimate Consistent w auto Clumped Platelets Not Reportable Plt Clumps, EDTA Not Reportable Large Platelets Not Reportable Giant Platelets Not Reportable Platelet Satelliting Not Reportable Plt Morphology Comment Not Reportable RBC Morphology Normal Dimorphic RBCs Not Reportable Polychromasia Not Reportable Hypochromasia Not Reportable Poikilocytosis Not Reportable Anisocytosis Not Reportable Microcytosis Not Reportable Macrocytosis Not Reportable Spherocytes Not Reportable Pappenheimer Bodies Not Reportable Sickle Cells Not Reportable Target Cells Not Reportable Tear Drop Cells Not Reportable Ovalocytes Not Reportable Helmet Cells Not Reportable [place] Bodies Not Reportable [place] Rings Not Reportable [place] Cells Not Reportable Bite Cells Not Reportable Crenated Cell Not Reportable Elliptocytes Not Reportable Acanthocytes (Spur) Not Reportable Rouleaux Not Reportable Hemoglobin C Crystals Not Reportable Schistocytes Not Reportable Malaria parasites Not Reportable [place] Bodies Not Reportable Hem Pathologist Commnt No POC ABG pH POC ABG pCO2 POC ABG pO2 POC ABG HCO3 POC ABG Total CO2 POC ABG O2 Sat POC ABG Base Excess FiO2 Sodium 139 Potassium 3.9 Chloride 95.3 L Carbon Dioxide 25 Anion Gap 23 BUN 41 H Creatinine 5.3 H Estimated GFR 13 BUN/Creatinine Ratio 7.73 Glucose 179 H POC Glucose Lactic Acid Calcium 8.5 Phosphorus 4.40 D Magnesium 1.60 L 03/07/17 03/07/17 03/07/17 03:53 05:09 05:52 WBC RBC Hgb Hct MCV MCH MCHC RDW Plt Count Add Manual Diff Total Counted Seg Neutrophils % Seg Neuts % (Manual) Band Neutrophils % Lymphocytes % (Manual) Reactive Lymphs % (Man) Monocytes % (Manual) Eosinophils % (Manual) Basophils % (Manual) Metamyelocytes % Myelocytes % Promyelocytes % Blast Cells % Nucleated RBC % Seg Neutrophils # Man Band Neutrophils # Lymphocytes # (Manual) Abs React Lymphs (Man) Monocytes # (Manual) Eosinophils # (Manual) Basophils # (Manual) Metamyelocytes # Myelocytes # Promyelocytes # Blast Cells # WBC Morphology Hypersegmented Neuts Hyposegmented Neuts Hypogranular Neuts Smudge Cells Toxic Granulation Toxic Vacuolation Dohle Bodies Pelger-Huet Anomaly Jose Rods Platelet Estimate Clumped Platelets Plt Clumps, EDTA Large Platelets Giant Platelets Platelet Satelliting Plt Morphology Comment RBC Morphology Dimorphic RBCs Polychromasia Hypochromasia Poikilocytosis Anisocytosis Microcytosis Macrocytosis Spherocytes Pappenheimer Bodies Sickle Cells Target Cells Tear Drop Cells Ovalocytes Helmet Cells [place] Bodies [place] Rings [place] Cells Bite Cells Crenated Cell Elliptocytes Acanthocytes (Spur) Rouleaux Hemoglobin C Crystals Schistocytes Malaria parasites [place] Bodies Hem Pathologist Commnt POC ABG pH POC ABG pCO2 POC ABG pO2 POC ABG HCO3 POC ABG Total CO2 POC ABG O2 Sat POC ABG Base Excess FiO2 Sodium Potassium Chloride Carbon Dioxide Anion Gap BUN Creatinine Estimated GFR BUN/Creatinine Ratio Glucose POC Glucose 187 H 130 H 75 Lactic Acid Calcium Phosphorus Magnesium
[2017-03-07] MEDS: LOPRESSOR PO SCH ×4 (09:15→22:34)
--- NOTE | 2017-03-07 09:41 | Progress Note ---
Assessment and Plan Assessment: * End stage renal disease on HD (outpatient MWF schedule) * DKA * Hyperkalemia - resolved * GI bleed * Hypertension Plan: * Patient is s/p HD overnight - no acute indication for HD today * Will plan for dialysis tomorrow, UF as tolerated * Resume outpatient dialysis MWF schedule next week * GI following - note plans for possible EGD * Epogen for goal Hb 10-12 * Renal diet when cleared by GI * Tight glycemic control per primary team * Continue antiHTN medications Subjective Date of service: 03/07/17 Principal diagnosis: hematemesis Interval history: Patient has no complaints today. Objective - Vital Signs Vital signs: Vital Signs - 12hr 03/06/17 03/06/17 03/06/17 21:40 21:50 22:00 Temperature Pulse Rate 80 84 91 H Respiratory 11 L 12 11 L Rate Blood Pressure 171/78 164/73 178/73 O2 Sat by Pulse 99 99 98 Oximetry 03/06/17 03/06/17 03/06/17 22:10 22:20 22:30 Temperature Pulse Rate 97 H 88 95 H Respiratory 13 14 12 Rate Blood Pressure 178/73 176/73 151/69 O2 Sat by Pulse 99 99 97 Oximetry 03/06/17 03/06/17 03/06/17 22:40 22:50 23:00 Temperature Pulse Rate 87 90 94 H Respiratory 14 11 L 13 Rate Blood Pressure 151/69 164/65 152/72 O2 Sat by Pulse 98 98 97 Oximetry 03/06/17 03/06/17 03/06/17 23:10 23:20 23:30 Temperature Pulse Rate 89 88 96 H Respiratory 12 13 14 Rate Blood Pressure 152/72 163/71 165/73 O2 Sat by Pulse 98 98 97 Oximetry 03/06/17 03/06/17 03/07/17 23:40 23:50 00:00 Temperature Pulse Rate 96 H 95 H 98 H Respiratory 15 12 11 L Rate Blood Pressure 165/73 228/57 142/61 O2 Sat by Pulse 98 98 99 Oximetry 03/07/17 03/07/17 03/07/17 00:10 00:20 00:30 Temperature Pulse Rate 91 H 89 102 H Respiratory 12 12 22 Rate Blood Pressure 142/61 139/50 139/50 O2 Sat by Pulse 98 98 100 Oximetry 03/07/17 03/07/17 03/07/17 00:40 00:50 01:00 Temperature Pulse Rate 96 H 101 H 97 H Respiratory 12 20 16 Rate Blood Pressure 139/50 137/58 134/49 O2 Sat by Pulse 99 97 98 Oximetry 03/07/17 03/07/17 03/07/17 01:02 01:10 01:20 Temperature 98.7 F Pulse Rate 93 H 93 H Respiratory 12 12 Rate Blood Pressure 134/49 131/51 O2 Sat by Pulse 99 99 Oximetry 03/07/17 03/07/17 03/07/17 01:30 01:40 01:50 Temperature Pulse Rate 98 H 106 H 107 H Respiratory 14 14 9 L Rate Blood Pressure 138/61 138/61 152/71 O2 Sat by Pulse 98 100 99 Oximetry 03/07/17 03/07/17 03/07/17 02:00 02:10 02:20 Temperature Pulse Rate 114 H 101 H 112 H Respiratory 14 11 L 11 L Rate Blood Pressure 147/46 147/46 140/74 O2 Sat by Pulse 97 99 98 Oximetry 03/07/17 03/07/17 03/07/17 02:30 02:40 02:50 Temperature Pulse Rate 93 H 96 H 103 H Respiratory 11 L 10 L 11 L Rate Blood Pressure 155/81 155/81 167/52 O2 Sat by Pulse 99 100 100 Oximetry 03/07/17 03/07/17 03/07/17 03:00 03:10 03:20 Temperature 98.8 F Pulse Rate 92 H 107 H 106 H Respiratory 10 L 12 13 Rate Blood Pressure 167/52 154/67 140/65 O2 Sat by Pulse 96 95 98 Oximetry 03/07/17 03/07/17 03/07/17 03:30 03:40 03:50 Temperature Pulse Rate 103 H 105 H 101 H Respiratory 11 L 16 11 L Rate Blood Pressure 130/70 130/70 154/70 O2 Sat by Pulse 98 100 99 Oximetry 03/07/17 03/07/17 03/07/17 04:00 04:10 04:20 Temperature Pulse Rate 97 H 96 H 97 H Respiratory 12 10 L 13 Rate Blood Pressure 156/78 154/70 157/77 O2 Sat by Pulse 99 99 100 Oximetry 03/07/17 03/07/17 03/07/17 04:30 04:40 04:50 Temperature Pulse Rate 90 94 H 87 Respiratory 10 L 12 10 L Rate Blood Pressure 160/76 160/76 155/79 O2 Sat by Pulse 99 100 100 Oximetry 03/07/17 03/07/17 03/07/17 05:00 05:10 05:20 Temperature Pulse Rate 91 H 85 102 H Respiratory 12 9 L 13 Rate Blood Pressure 166/74 166/74 O2 Sat by Pulse 99 100 Oximetry 03/07/17 03/07/17 03/07/17 05:30 05:40 05:50 Temperature Pulse Rate 91 H 96 H 91 H Respiratory 13 10 L 10 L Rate Blood Pressure 155/78 155/78 171/78 O2 Sat by Pulse Oximetry 03/07/17 03/07/17 03/07/17 06:00 06:10 06:20 Temperature Pulse Rate 93 H 90 90 Respiratory 11 L 14 10 L Rate Blood Pressure 161/78 185/71 156/68 O2 Sat by Pulse 99 99 99 Oximetry 03/07/17 03/07/17 03/07/17 07:27 08:26 08:32 Temperature 98.5 F 98.5 F Pulse Rate 93 H 93 H Respiratory 16 16 Rate Blood Pressure 152/96 152/96 O2 Sat by Pulse 96 96 96 Oximetry - General Appearance General appearance: well-developed, well-nourished EENT: ATNC Neck: no JVD Respiratory: Present: Clear to Ascultation Cardiology: regular, S1S2 Gastrointestinal: normal, no tenderness, no distended Neurologic: no focal deficit - Lab 03/07/17 03:45 03/07/17 03:45 Most recent lab results Calcium 8.5 mg/dL (8.4-10.2) 03/07/17 03:45 Phosphorus 4.40 mg/dL (2.5-4.5) D 03/07/17 03:45 Magnesium 1.60 mg/dL (1.7-2.3) L 03/07/17 03:45
[2017-03-07] MEDS ORDERED: NACL 0.9% 100 ML IV PRN (09:42)
[2017-03-07] MEDS ORDERED: LOVENOX SUB-Q SCH (10:00)
[2017-03-07] MEDS ORDERED: CATAPRES PO SCH (10:00)
[2017-03-07] MEDS ORDERED: NON-FORMULARY (Clonidine 0.2 MG) PO SCH (10:00)
[2017-03-07] MEDS ORDERED: PEPCID IV SCH (10:00)
[2017-03-07] MEDS: COZAAR PO SCH ×2 (10:54→14:07)
[2017-03-07] MEDS: NORVASC PO SCH ×2 (10:55→14:09)
[2017-03-07] MEDS: LONITEN PO SCH ×2 (10:55→14:07)
[2017-03-07 11:06] LABS: BUN/Creatinine Ratio 7.14; Calcium 8.5 mg/dL (8.4-10.2)
--- NOTE | 2017-03-07 11:46 | Progress Note ---
Subjective Date of service: 03/07/17 Principal diagnosis: hematemesis Interval history: Seen and examined at bedside; 24 hour events reviewed; nursing and respiratory care staff consulted; no adverse overnight events reported to me; Objective Vital Signs - 12hr 03/06/17 03/07/17 03/07/17 23:50 00:00 00:10 Temperature Pulse Rate 95 H 98 H 91 H Respiratory 12 11 L 12 Rate Blood Pressure 228/57 142/61 142/61 O2 Sat by Pulse 98 99 98 Oximetry 03/07/17 03/07/17 03/07/17 00:20 00:30 00:40 Temperature Pulse Rate 89 102 H 96 H Respiratory 12 22 12 Rate Blood Pressure 139/50 139/50 139/50 O2 Sat by Pulse 98 100 99 Oximetry 03/07/17 03/07/17 03/07/17 00:50 01:00 01:02 Temperature 98.7 F Pulse Rate 101 H 97 H Respiratory 20 16 Rate Blood Pressure 137/58 134/49 O2 Sat by Pulse 97 98 Oximetry 03/07/17 03/07/17 03/07/17 01:10 01:20 01:30 Temperature Pulse Rate 93 H 93 H 98 H Respiratory 12 12 14 Rate Blood Pressure 134/49 131/51 138/61 O2 Sat by Pulse 99 99 98 Oximetry 03/07/17 03/07/17 03/07/17 01:40 01:50 02:00 Temperature Pulse Rate 106 H 107 H 114 H Respiratory 14 9 L 14 Rate Blood Pressure 138/61 152/71 147/46 O2 Sat by Pulse 100 99 97 Oximetry 03/07/17 03/07/17 03/07/17 02:10 02:20 02:30 Temperature Pulse Rate 101 H 112 H 93 H Respiratory 11 L 11 L 11 L Rate Blood Pressure 147/46 140/74 155/81 O2 Sat by Pulse 99 98 99 Oximetry 03/07/17 03/07/17 03/07/17 02:40 02:50 03:00 Temperature Pulse Rate 96 H 103 H 92 H Respiratory 10 L 11 L 10 L Rate Blood Pressure 155/81 167/52 167/52 O2 Sat by Pulse 100 100 96 Oximetry 03/07/17 03/07/17 03/07/17 03:10 03:20 03:30 Temperature 98.8 F Pulse Rate 107 H 106 H 103 H Respiratory 12 13 11 L Rate Blood Pressure 154/67 140/65 130/70 O2 Sat by Pulse 95 98 98 Oximetry 03/07/17 03/07/17 03/07/17 03:40 03:50 04:00 Temperature Pulse Rate 105 H 101 H 97 H Respiratory 16 11 L 12 Rate Blood Pressure 130/70 154/70 156/78 O2 Sat by Pulse 100 99 99 Oximetry 03/07/17 03/07/17 03/07/17 04:10 04:20 04:30 Temperature Pulse Rate 96 H 97 H 90 Respiratory 10 L 13 10 L Rate Blood Pressure 154/70 157/77 160/76 O2 Sat by Pulse 99 100 99 Oximetry 03/07/17 03/07/17 03/07/17 04:40 04:50 05:00 Temperature Pulse Rate 94 H 87 91 H Respiratory 12 10 L 12 Rate Blood Pressure 160/76 155/79 166/74 O2 Sat by Pulse 100 100 99 Oximetry 03/07/17 03/07/17 03/07/17 05:10 05:20 05:30 Temperature Pulse Rate 85 102 H 91 H Respiratory 9 L 13 13 Rate Blood Pressure 166/74 155/78 O2 Sat by Pulse 100 Oximetry 03/07/17 03/07/17 03/07/17 05:40 05:50 06:00 Temperature Pulse Rate 96 H 91 H 93 H Respiratory 10 L 10 L 11 L Rate Blood Pressure 155/78 171/78 161/78 O2 Sat by Pulse 99 Oximetry 03/07/17 03/07/17 03/07/17 06:10 06:20 06:30 Temperature Pulse Rate 90 90 95 H Respiratory 14 10 L 11 L Rate Blood Pressure 185/71 156/68 156/68 O2 Sat by Pulse 99 99 99 Oximetry 03/07/17 03/07/17 03/07/17 06:40 06:50 07:00 Temperature Pulse Rate 102 H 97 H 99 H Respiratory 12 13 16 Rate Blood Pressure 158/100 158/100 136/53 O2 Sat by Pulse 98 99 99 Oximetry 03/07/17 03/07/17 03/07/17 07:10 07:20 07:27 Temperature Pulse Rate 100 H 94 H Respiratory 11 L 12 Rate Blood Pressure 165/78 164/101 O2 Sat by Pulse 91 98 96 Oximetry 03/07/17 03/07/17 03/07/17 07:30 07:40 07:50 Temperature Pulse Rate 87 83 94 H Respiratory 11 L 11 L 16 Rate Blood Pressure 161/64 161/64 152/96 O2 Sat by Pulse Oximetry 03/07/17 03/07/17 03/07/17 08:00 08:10 08:20 Temperature Pulse Rate 86 87 87 Respiratory 16 12 11 L Rate Blood Pressure 156/73 156/73 164/114 O2 Sat by Pulse 99 Oximetry 03/07/17 03/07/17 03/07/17 08:26 08:30 08:32 Temperature 98.5 F 98.5 F Pulse Rate 93 H 83 93 H Respiratory 16 10 L 16 Rate Blood Pressure 152/96 135/61 152/96 O2 Sat by Pulse 96 96 Oximetry 03/07/17 03/07/17 03/07/17 08:40 08:50 09:00 Temperature Pulse Rate 86 86 90 Respiratory 12 12 12 Rate Blood Pressure 135/61 141/66 160/102 O2 Sat by Pulse Oximetry 03/07/17 03/07/17 03/07/17 09:10 09:20 09:30 Temperature Pulse Rate 94 H 90 96 H Respiratory 11 L 10 L 12 Rate Blood Pressure 160/102 162/65 162/76 O2 Sat by Pulse Oximetry 03/07/17 03/07/17 03/07/17 09:40 09:50 10:00 Temperature Pulse Rate 101 H 92 H 95 H Respiratory 12 10 L 10 L Rate Blood Pressure 162/65 156/80 155/75 O2 Sat by Pulse Oximetry 03/07/17 03/07/17 03/07/17 10:10 10:20 10:30 Temperature Pulse Rate 93 H 98 H 95 H Respiratory 10 L 12 10 L Rate Blood Pressure 155/75 147/81 146/71 O2 Sat by Pulse 96 Oximetry 03/07/17 10:40 Temperature Pulse Rate 95 H Respiratory 9 L Rate Blood Pressure 146/71 O2 Sat by Pulse Oximetry CBC and BMP: 03/07/17 03:45 03/07/17 10:29 ABG, PT/INR, D-dimer: ABG POC ABG pH 7.300 (7.35-7.45) L 03/06/17 13:12 POC ABG pCO2 40.0 (35-45) 03/06/17 13:12 POC ABG pO2 83 (80-105) 03/06/17 13:12 POC ABG HCO3 19.7 03/06/17 13:12 POC ABG Total CO2 21 03/06/17 13:12 POC ABG O2 Sat 95 03/06/17 13:12 PT/INR, D-dimer PT 15.2 Sec. (12.2-14.9) H 03/06/17 05:35 INR 1.14 (0.87-1.13) H 03/06/17 05:35 Abnormal lab findings: Abnormal Labs 03/06/17 03/06/17 03/06/17 12:23 13:03 13:12 RDW Seg Neuts % (Manual) Lymphocytes % (Manual) Monocytes % (Manual) Lymphocytes # (Manual) POC ABG pH 7.300 L Sodium 133 L 132 L Potassium 6.2 H* D Chloride 86.1 L 87.9 L Carbon Dioxide 15 L 16 L BUN 83 H 84 H Creatinine 9.1 H 9.1 H Glucose 820 H* 730 H* POC Glucose Lactic Acid Calcium 8.3 L 8.0 L Magnesium 03/06/17 03/06/17 03/06/17 15:30 16:40 17:46 RDW Seg Neuts % (Manual) Lymphocytes % (Manual) Monocytes % (Manual) Lymphocytes # (Manual) POC ABG pH Sodium 136 L Potassium Chloride 90.2 L Carbon Dioxide 20 L BUN 84 H Creatinine 9.0 H Glucose 571 H* POC Glucose 413 H 332 H Lactic Acid Calcium 8.3 L Magnesium 03/06/17 03/06/17 03/06/17 18:42 19:33 23:20 RDW Seg Neuts % (Manual) Lymphocytes % (Manual) Monocytes % (Manual) Lymphocytes # (Manual) POC ABG pH Sodium Potassium Chloride Carbon Dioxide BUN Creatinine Glucose POC Glucose 222 H 142 H 148 H Lactic Acid Calcium Magnesium 03/07/17 03/07/17 03/07/17 00:05 00:58 02:05 RDW Seg Neuts % (Manual) Lymphocytes % (Manual) Monocytes % (Manual) Lymphocytes # (Manual) POC ABG pH Sodium Potassium Chloride Carbon Dioxide BUN Creatinine Glucose POC Glucose 205 H 259 H 255 H Lactic Acid Calcium Magnesium 03/07/17 03/07/17 03/07/17 02:45 03:45 03:45 RDW 16.7 H Seg Neuts % (Manual) 79.0 H Lymphocytes % (Manual) 5.0 L Monocytes % (Manual) 8.0 H Lymphocytes # (Manual) 0.4 L POC ABG pH Sodium Potassium Chloride 95.3 L Carbon Dioxide BUN 41 H Creatinine 5.3 H Glucose 179 H POC Glucose Lactic Acid 2.60 H* Calcium Magnesium 03/07/17 03/07/17 03/07/17 03:45 03:53 05:09 RDW Seg Neuts % (Manual) Lymphocytes % (Manual) Monocytes % (Manual) Lymphocytes # (Manual) POC ABG pH Sodium Potassium Chloride Carbon Dioxide BUN Creatinine Glucose POC Glucose 187 H 130 H Lactic Acid Calcium Magnesium 1.60 L 03/07/17 10:29 RDW Seg Neuts % (Manual) Lymphocytes % (Manual) Monocytes % (Manual) Lymphocytes # (Manual) POC ABG pH Sodium Potassium Chloride 94.0 L Carbon Dioxide BUN 45 H Creatinine 6.3 H Glucose 206 H POC Glucose Lactic Acid Calcium Magnesium
[2017-03-07] MEDS ORDERED: VANCOMYCIN PHARMACY TO DOSE IV SCH (12:00)
[2017-03-07] MEDS: HEPARIN SUB-Q SCH ×2 (13:55→22:49)
[2017-03-07] MEDS: LEVEMIR SUB-Q SCH (14:04)
[2017-03-07] MEDS ORDERED: PANCREAZE DR 10,500 UNIT FEEDTUBE PRN (14:20)
[2017-03-07] MEDS ORDERED: SODIUM BICARBONATE FEEDTUBE PRN (14:20)
[2017-03-07] MEDS ORDERED: SIMPLE SYRUP FEEDTUBE PRN ×2 (14:20)
--- NOTE | 2017-03-07 14:44 | Progress Note ---
Assessment and Plan - Patient Problems (1) DKA (diabetic ketoacidoses) Current Visit: Yes Status: Acute Qualifiers: Diabetes mellitus type: D Diabetes mellitus complication detail: D Plan to address problem: - continue IV insulin (4 units/hr now) - transition to long acting insulin (lantus 20units q24h) shortly - continue IVF per DKA protocol (2) Acute on chronic kidney failure Current Visit: Yes Status: Acute Qualifiers: Acute renal failure type: A Chronic kidney disease stage: C Plan to address problem: - s/p HD/UF yesterday - electrolytes shifting appropriately with DKA treatment - per nephrology otherwise (3) Acute encephalopathy Current Visit: Yes Status: Acute Plan to address problem: - likely chronic component - improved in short term as treatment for DKA continues and post dialysis - follow clinically (4) Anemia Current Visit: No Status: Chronic Qualifiers: Anemia type: A Iron deficiency anemia type: I Vitamin B12 deficiency anemia type: V Folate deficiency anemia type: F Bone marrow failure anemia type: B Hemolytic anemia type: H Other causes of anemia: O Chronic kidney disease stage: C Plan to address problem: - likely chronic disease component - doubt significant ABLA as no active GI bleeding so far - continue PPI therapy - send iron studies and treat as necessary (5) Hematemesis/vomiting blood Current Visit: Yes Status: Acute Qualifiers: Nausea presence: N Plan to address problem: - no active bleeding - continue zofran for N&V - GI evaluation ongoing - continue PPI therapy - trend H&H (6) Hypertension Current Visit: No Status: Chronic Qualifiers: Hypertension type: H Plan to address problem: - continue home antihypertensives and adjust as necessary (7) Discharge planning issues Current Visit: No Status: Acute Plan to address problem: - remains critically ill on life sustaining therapies including IV insulin and at risk for further deterioration including ....30' CCT Subjective Date of service: 03/07/17 Principal diagnosis: DKA; hematemesis Interval history: Seen and examined at bedside; 24 hour events reviewed; nursing and respiratory care staff consulted; no adverse overnight events reported to me; resting peacefully in bed; remains on IV insulin therapy but gap closing; no emesis or overt aspiration; ST evaluation pending but may need feeding tube Objective Vital Signs - 12hr 03/07/17 03/07/17 03/07/17 02:50 03:00 03:10 Temperature Pulse Rate 103 H 92 H 107 H Respiratory 11 L 10 L 12 Rate Blood Pressure 167/52 167/52 154/67 O2 Sat by Pulse 100 96 95 Oximetry 03/07/17 03/07/17 03/07/17 03:20 03:30 03:40 Temperature 98.8 F Pulse Rate 106 H 103 H 105 H Respiratory 13 11 L 16 Rate Blood Pressure 140/65 130/70 130/70 O2 Sat by Pulse 98 98 100 Oximetry 03/07/17 03/07/17 03/07/17 03:50 04:00 04:10 Temperature Pulse Rate 101 H 97 H 96 H Respiratory 11 L 12 10 L Rate Blood Pressure 154/70 156/78 154/70 O2 Sat by Pulse 99 99 99 Oximetry 03/07/17 03/07/17 03/07/17 04:20 04:30 04:40 Temperature Pulse Rate 97 H 90 94 H Respiratory 13 10 L 12 Rate Blood Pressure 157/77 160/76 160/76 O2 Sat by Pulse 100 99 100 Oximetry 03/07/17 03/07/17 03/07/17 04:50 05:00 05:10 Temperature Pulse Rate 87 91 H 85 Respiratory 10 L 12 9 L Rate Blood Pressure 155/79 166/74 O2 Sat by Pulse 100 99 100 Oximetry 03/07/17 03/07/17 03/07/17 05:20 05:30 05:40 Temperature Pulse Rate 102 H 91 H 96 H Respiratory 13 13 10 L Rate Blood Pressure 166/74 155/78 155/78 O2 Sat by Pulse Oximetry 03/07/17 03/07/17 03/07/17 05:50 06:00 06:10 Temperature Pulse Rate 91 H 93 H 90 Respiratory 10 L 11 L 14 Rate Blood Pressure 171/78 161/78 185/71 O2 Sat by Pulse 99 99 Oximetry 03/07/17 03/07/17 03/07/17 06:20 06:30 06:40 Temperature Pulse Rate 90 95 H 102 H Respiratory 10 L 11 L 12 Rate Blood Pressure 156/68 156/68 158/100 O2 Sat by Pulse 99 99 98 Oximetry 03/07/17 03/07/17 03/07/17 06:50 07:00 07:10 Temperature Pulse Rate 97 H 99 H 100 H Respiratory 13 16 11 L Rate Blood Pressure 158/100 136/53 165/78 O2 Sat by Pulse 99 99 91 Oximetry 03/07/17 03/07/17 03/07/17 07:20 07:27 07:30 Temperature Pulse Rate 94 H 87 Respiratory 12 11 L Rate Blood Pressure 164/101 161/64 O2 Sat by Pulse 98 96 Oximetry 03/07/17 03/07/17 03/07/17 07:40 07:50 08:00 Temperature Pulse Rate 83 94 H 86 Respiratory 11 L 16 16 Rate Blood Pressure 161/64 152/96 156/73 O2 Sat by Pulse 99 Oximetry 03/07/17 03/07/17 03/07/17 08:10 08:20 08:26 Temperature 98.5 F Pulse Rate 87 87 93 H Respiratory 12 11 L 16 Rate Blood Pressure 156/73 164/114 152/96 O2 Sat by Pulse 96 Oximetry 03/07/17 03/07/17 03/07/17 08:30 08:32 08:40 Temperature 98.5 F Pulse Rate 83 93 H 86 Respiratory 10 L 16 12 Rate Blood Pressure 135/61 152/96 135/61 O2 Sat by Pulse 96 Oximetry 03/07/17 03/07/17 03/07/17 08:50 09:00 09:10 Temperature Pulse Rate 86 90 94 H Respiratory 12 12 11 L Rate Blood Pressure 141/66 160/102 160/102 O2 Sat by Pulse Oximetry 03/07/17 03/07/17 03/07/17 09:20 09:30 09:40 Temperature Pulse Rate 90 96 H 101 H Respiratory 10 L 12 12 Rate Blood Pressure 162/65 162/76 162/65 O2 Sat by Pulse Oximetry 03/07/17 03/07/17 03/07/17 09:50 10:00 10:10 Temperature Pulse Rate 92 H 95 H 93 H Respiratory 10 L 10 L 10 L Rate Blood Pressure 156/80 155/75 155/75 O2 Sat by Pulse Oximetry 03/07/17 03/07/17 03/07/17 10:20 10:30 10:40 Temperature Pulse Rate 98 H 95 H 95 H Respiratory 12 10 L 9 L Rate Blood Pressure 147/81 146/71 146/71 O2 Sat by Pulse 96 Oximetry 03/07/17 03/07/17 03/07/17 10:50 11:00 11:10 Temperature Pulse Rate 96 H 98 H 98 H Respiratory 12 11 L 10 L Rate Blood Pressure 136/69 151/75 136/69 O2 Sat by Pulse Oximetry 03/07/17 03/07/17 03/07/17 11:20 11:30 11:40 Temperature Pulse Rate 96 H 90 93 H Respiratory 10 L 10 L 11 L Rate Blood Pressure 156/70 154/72 154/72 O2 Sat by Pulse Oximetry 03/07/17 03/07/17 03/07/17 11:50 12:00 12:10 Temperature 98.2 F Pulse Rate 91 H 94 H 92 H Respiratory 11 L 12 11 L Rate Blood Pressure 170/68 146/72 146/72 O2 Sat by Pulse Oximetry 03/07/17 03/07/17 03/07/17 12:20 12:30 12:40 Temperature Pulse Rate 82 90 92 H Respiratory 11 L 11 L 11 L Rate Blood Pressure 139/69 147/71 147/71 O2 Sat by Pulse Oximetry 03/07/17 03/07/17 03/07/17 12:50 13:00 13:10 Temperature Pulse Rate 93 H 91 H 93 H Respiratory 11 L 14 11 L Rate Blood Pressure 148/69 148/72 148/72 O2 Sat by Pulse Oximetry 03/07/17 03/07/17 14:07 14:09 Temperature Pulse Rate Respiratory Rate Blood Pressure 163/77 156/78 O2 Sat by Pulse Oximetry Constitutional: no acute distress, other (somnolent) Eyes: non-icteric ENT: oropharynx moist Neck: supple, no lymphadenopathy Effort: mildly labored Ascultation: Bilateral: diminished breath sounds, rales (scant in bases) Cardiovascular: regular rate and rhythm Gastrointestinal: normoactive bowel sounds, soft, non-tender, non-distended Integumentary: normal Extremities: no cyanosis, no edema, pulses normal, no ischemia or petechiae, other (chronic lichenification changes to skin in lower extremities) Neurologic: pupils equal and round, other (Post prior CVA hemiparesis) Psychiatric: other (unable to assess) CBC and BMP: 03/07/17 03:45 03/07/17 10:29 ABG, PT/INR, D-dimer: ABG POC ABG pH 7.300 (7.35-7.45) L 03/06/17 13:12 POC ABG pCO2 40.0 (35-45) 03/06/17 13:12 POC ABG pO2 83 (80-105) 03/06/17 13:12 POC ABG HCO3 19.7 03/06/17 13:12 POC ABG Total CO2 21 03/06/17 13:12 POC ABG O2 Sat 95 03/06/17 13:12 PT/INR, D-dimer PT 15.2 Sec. (12.2-14.9) H 03/06/17 05:35 INR 1.14 (0.87-1.13) H 03/06/17 05:35 Abnormal lab findings: Abnormal Labs 03/06/17 03/06/17 03/06/17 12:23 13:03 13:12 RDW Seg Neuts % (Manual) Lymphocytes % (Manual) Monocytes % (Manual) Lymphocytes # (Manual) POC ABG pH 7.300 L Sodium 133 L 132 L Potassium 6.2 H* D Chloride 86.1 L 87.9 L Carbon Dioxide 15 L 16 L BUN 83 H 84 H Creatinine 9.1 H 9.1 H Glucose 820 H* 730 H* POC Glucose Lactic Acid Calcium 8.3 L 8.0 L Magnesium C-Reactive Protein 03/06/17 03/06/17 03/06/17 15:30 16:40 17:46 RDW Seg Neuts % (Manual) Lymphocytes % (Manual) Monocytes % (Manual) Lymphocytes # (Manual) POC ABG pH Sodium 136 L Potassium Chloride 90.2 L Carbon Dioxide 20 L BUN 84 H Creatinine 9.0 H Glucose 571 H* POC Glucose 413 H 332 H Lactic Acid Calcium 8.3 L Magnesium C-Reactive Protein 03/06/17 03/06/17 03/06/17 18:42 19:33 23:20 RDW Seg Neuts % (Manual) Lymphocytes % (Manual) Monocytes % (Manual) Lymphocytes # (Manual) POC ABG pH Sodium Potassium Chloride Carbon Dioxide BUN Creatinine Glucose POC Glucose 222 H 142 H 148 H Lactic Acid Calcium Magnesium C-Reactive Protein 03/07/17 03/07/17 03/07/17 00:05 00:58 02:05 RDW Seg Neuts % (Manual) Lymphocytes % (Manual) Monocytes % (Manual) Lymphocytes # (Manual) POC ABG pH Sodium Potassium Chloride Carbon Dioxide BUN Creatinine Glucose POC Glucose 205 H 259 H 255 H Lactic Acid Calcium Magnesium C-Reactive Protein 03/07/17 03/07/17 03/07/17 02:45 03:45 03:45 RDW 16.7 H Seg Neuts % (Manual) 79.0 H Lymphocytes % (Manual) 5.0 L Monocytes % (Manual) 8.0 H Lymphocytes # (Manual) 0.4 L POC ABG pH Sodium Potassium Chloride 95.3 L Carbon Dioxide BUN 41 H Creatinine 5.3 H Glucose 179 H POC Glucose Lactic Acid 2.60 H* Calcium Magnesium C-Reactive Protein 03/07/17 03/07/17 03/07/17 03:45 03:53 05:09 RDW Seg Neuts % (Manual) Lymphocytes % (Manual) Monocytes % (Manual) Lymphocytes # (Manual) POC ABG pH Sodium Potassium Chloride Carbon Dioxide BUN Creatinine Glucose POC Glucose 187 H 130 H Lactic Acid Calcium Magnesium 1.60 L C-Reactive Protein 03/07/17 03/07/17 10:29 Unknown RDW Seg Neuts % (Manual) Lymphocytes % (Manual) Monocytes % (Manual) Lymphocytes # (Manual) POC ABG pH Sodium Potassium Chloride 94.0 L Carbon Dioxide BUN 45 H Creatinine 6.3 H Glucose 206 H POC Glucose Lactic Acid Calcium Magnesium C-Reactive Protein 11.40 H Chest x-ray: image reviewed
[2017-03-07] MEDS ORDERED: MAGNESIUM SULFATE 2GM/50ML 2 GM/50 ML BAG IV ONE (15:55)
--- NOTE | 2017-03-07 16:03 | XRay Report ---
Flatplate of abdomen: History: Dobbhoff placement. Findings: Tip of Dobbhoff feeding tube is noted in stomach. No bowel distention. Impression: Tip of Dobbhoff feeding tube in stomach.
--- NOTE | 2017-03-07 16:07 | Progress Note ---
Assessment and Plan Assessment and plan: DKA - Managed according to DK protocol and resolved Diabetes mellitus type 2 - Insulin sliding scale insulin - We'll manage his insulin as needed End-stage and is on hemodialysis - Nephrology is on board - We'll get his hemodialysis as scheduled Hyperkalemia - Last potassium checked was 6.3 - We'll give him Kayexalate Lactic acidosis - Likely from infection and will continue the antibiotics Hematemesis - GI consulted - Recommend EGD, Protonix, monitor H&H Metabolic encephalopathy - We'll treat the underlying cause Hypertension - We'll manage accordingly DVT prophylaxis - SCD because of his GI bleed Disposition - Transfer to the floor No family member was in the room to discuss the management plan The high probability of a clinically significant, sudden or life threatening deterioration of the [neurologic, endocrine] system(s) required my full and direct attention, intervention and personal management. The aggregate critical care time was [31] minutes. This time is in addition to time spent performing reported procedures but includes the following: [x] Data Review and interpretation [x] Patient assessment and monitoring of vital signs [x] Documentation [x] Medication orders and management History Interval history: Patient was seen and evaluated this morning, he is confused per family members that is his baseline. Hospitalist Physical - Physical exam Narrative exam: Not in cardiopulmonary distress. Patient is confused and not able to answer questions. The patient appeared well nourished and normally developed. Vital signs as documented. Head exam is unremarkable. No scleral icterus . Neck is without jugular venous distension, thyromegaly, or carotid bruits. Lungs are clear to auscultation. Cardiac exam reveals regular rate and Rhythm. Abdominal exam reveals normal bowel sounds, no masses, no organomegaly and no aortic enlargement. Extremities are nonedematous and both femoral and pedal pulses are normal. LOGISTICS OPERATIONS DIRECTOR: confused and not able to communicate. - Constitutional Vitals: Temp Pulse Resp BP Pulse Ox 98.2 F 93 H 11 L 156/78 96 03/07/17 12:00 03/07/17 13:10 03/07/17 13:10 03/07/17 14:09 03/07/17 10:20 General appearance: Present: mild distress, cachectic, other (minimally communicative) Results - Labs CBC & Chem 7: 03/07/17 03:45 03/07/17 10:29 Labs: Laboratory Last Values WBC 8.7 K/mm3 (4.5-11.0) 03/07/17 03:45 RBC 4.14 M/mm3 (3.65-5.03) 03/07/17 03:45 Hgb 12.4 gm/dl (11.8-15.2) 03/07/17 03:45 Hct 37.3 % (35.5-45.6) 03/07/17 03:45 MCV 90 fl (84-94) D 03/07/17 03:45 MCH 30 pg (28-32) 03/07/17 03:45 MCHC 33 % (32-34) 03/07/17 03:45 RDW 16.7 % (13.2-15.2) H 03/07/17 03:45 Plt Count 254 K/mm3 (140-440) 03/07/17 03:45 Lymph % (Auto) 4.7 % (13.4-35.0) L 03/06/17 05:35 [place] % (Auto) 10.1 % (0.0-7.3) H 03/06/17 05:35 Eos % (Auto) 0.0 % (0.0-4.3) 03/06/17 05:35 Baso % (Auto) 0.5 % (0.0-1.8) 03/06/17 05:35 Lymph # 0.4 K/mm3 (1.2-5.4) L 03/06/17 05:35 [place] # 0.8 K/mm3 (0.0-0.8) 03/06/17 05:35 Eos # 0.0 K/mm3 (0.0-0.4) 03/06/17 05:35 Baso # 0.0 K/mm3 (0.0-0.1) 03/06/17 05:35 Add Manual Diff Complete 03/07/17 03:45 Total Counted 100 03/07/17 03:45 Seg Neutrophils % Auto Research Engineer 03/07/17 03:45 Seg Neuts % (Manual) 79.0 % (40.0-70.0) H 03/07/17 03:45 Band Neutrophils % 8.0 % 03/07/17 03:45 Lymphocytes % (Manual) 5.0 % (13.4-35.0) L 03/07/17 03:45 Reactive Lymphs % (Man) 0 % 03/07/17 03:45 Monocytes % (Manual) 8.0 % (0.0-7.3) H 03/07/17 03:45 Eosinophils % (Manual) 0 % (0.0-4.3) 03/07/17 03:45 Basophils % (Manual) 0 % (0.0-1.8) 03/07/17 03:45 Metamyelocytes % 0 % 03/07/17 03:45 Myelocytes % 0 % 03/07/17 03:45 Promyelocytes % 0 % 03/07/17 03:45 Blast Cells % 0 % 03/07/17 03:45 Nucleated RBC % Not Reportable 03/07/17 03:45 Seg Neutrophils # 6.4 K/mm3 (1.8-7.7) 03/06/17 05:35 Seg Neutrophils # Man 6.9 K/mm3 (1.8-7.7) 03/07/17 03:45 Band Neutrophils # 0.7 K/mm3 03/07/17 03:45 Lymphocytes # (Manual) 0.4 K/mm3 (1.2-5.4) L 03/07/17 03:45 Abs React Lymphs (Man) 0.0 K/mm3 03/07/17 03:45 Monocytes # (Manual) 0.7 K/mm3 (0.0-0.8) 03/07/17 03:45 Eosinophils # (Manual) 0.0 K/mm3 (0.0-0.4) 03/07/17 03:45 Basophils # (Manual) 0.0 K/mm3 (0.0-0.1) 03/07/17 03:45 Metamyelocytes # 0.0 K/mm3 03/07/17 03:45 Myelocytes # 0.0 K/mm3 03/07/17 03:45 Promyelocytes # 0.0 K/mm3 03/07/17 03:45 Blast Cells # 0.0 K/mm3 03/07/17 03:45 WBC Morphology Not Reportable 03/07/17 03:45 Hypersegmented Neuts Not Reportable 03/07/17 03:45 Hyposegmented Neuts Not Reportable 03/07/17 03:45 Hypogranular Neuts Not Reportable 03/07/17 03:45 Smudge Cells Not Reportable 03/07/17 03:45 Toxic Granulation Not Reportable 03/07/17 03:45 Toxic Vacuolation Not Reportable 03/07/17 03:45 Dohle Bodies Not Reportable 03/07/17 03:45 Pelger-Huet Anomaly Not Reportable 03/07/17 03:45 Jose Rods Not Reportable 03/07/17 03:45 Platelet Estimate Consistent w auto 03/07/17 03:45 Clumped Platelets Not Reportable 03/07/17 03:45 Plt Clumps, EDTA Not Reportable 03/07/17 03:45 Large Platelets Not Reportable 03/07/17 03:45 Giant Platelets Not Reportable 03/07/17 03:45 Platelet Satelliting Not Reportable 03/07/17 03:45 Plt Morphology Comment Not Reportable 03/07/17 03:45 RBC Morphology Normal 03/07/17 03:45 Dimorphic RBCs Not Reportable 03/07/17 03:45 Polychromasia Not Reportable 03/07/17 03:45 Hypochromasia Not Reportable 03/07/17 03:45 Poikilocytosis Not Reportable 03/07/17 03:45 Anisocytosis Not Reportable 03/07/17 03:45 Microcytosis Not Reportable 03/07/17 03:45 Macrocytosis Not Reportable 03/07/17 03:45 Spherocytes Not Reportable 03/07/17 03:45 Pappenheimer Bodies Not Reportable 03/07/17 03:45 Sickle Cells Not Reportable 03/07/17 03:45 Target Cells Not Reportable 03/07/17 03:45 Tear Drop Cells Not Reportable 03/07/17 03:45 Ovalocytes Not Reportable 03/07/17 03:45 Helmet Cells Not Reportable 03/07/17 03:45 [place] Bodies Not Reportable 03/07/17 03:45 [place] Rings Not Reportable 03/07/17 03:45 [place] Cells Not Reportable 03/07/17 03:45 Bite Cells Not Reportable 03/07/17 03:45 Crenated Cell Not Reportable 03/07/17 03:45 Elliptocytes Not Reportable 03/07/17 03:45 Acanthocytes (Spur) Not Reportable 03/07/17 03:45 Rouleaux Not Reportable 03/07/17 03:45 Hemoglobin C Crystals Not Reportable 03/07/17 03:45 Schistocytes Not Reportable 03/07/17 03:45 Malaria parasites Not Reportable 03/07/17 03:45 [place] Bodies Not Reportable 03/07/17 03:45 Hem Pathologist Commnt No 03/07/17 03:45 PT 15.2 Sec. (12.2-14.9) H 03/06/17 05:35 INR 1.14 (0.87-1.13) H 03/06/17 05:35 APTT 41.5 Sec. (24.2-36.6) H 03/06/17 05:35 POC ABG pH 7.300 (7.35-7.45) L 03/06/17 13:12 POC ABG pCO2 40.0 (35-45) 03/06/17 13:12 POC ABG pO2 83 (80-105) 03/06/17 13:12 POC ABG HCO3 19.7 03/06/17 13:12 POC ABG Total CO2 21 03/06/17 13:12 POC ABG O2 Sat 95 03/06/17 13:12 POC ABG Base Excess -7 03/06/17 13:12 FiO2 28 % 03/06/17 13:12 Sodium 140 mmol/L (137-145) 03/07/17 10:29 Potassium 5.0 mmol/L (3.6-5.0) D 03/07/17 10:29 Chloride 94.0 mmol/L (98-107) L 03/07/17 10:29 Carbon Dioxide 25 mmol/L (22-30) 03/07/17 10:29 Anion Gap 26 mmol/L 03/07/17 10:29 BUN 45 mg/dL (9-20) H 03/07/17 10:29 Creatinine 6.3 mg/dL (0.8-1.5) H 03/07/17 10:29 Estimated GFR 11 ml/min 03/07/17 10:29 BUN/Creatinine Ratio 7.14 % 03/07/17 10:29 Glucose 206 mg/dL (75-100) H 03/07/17 10:29 POC Glucose 89 (70-105) 03/07/17 07:06 Hemoglobin A1c 10.1 % (4-6) H 03/06/17 05:35 Osmolality 373 Mosm/kg 03/06/17 08:04 Lactic Acid 2.60 mmol/L (0.7-2.0) H* 03/07/17 02:45 Calcium 8.5 mg/dL (8.4-10.2) 03/07/17 10:29 Phosphorus 4.40 mg/dL (2.5-4.5) D 03/07/17 03:45 Magnesium 1.60 mg/dL (1.7-2.3) L 03/07/17 03:45 Total Bilirubin 0.40 mg/dL (0.1-1.2) 03/06/17 05:35 AST 12 units/L (5-40) 03/06/17 05:35 ALT 11 units/L (7-56) 03/06/17 05:35 Alkaline Phosphatase 144 units/L (35-129) H 03/06/17 05:35 C-Reactive Protein 11.40 mg/dL (0.00-1.30) H 03/07/17 Unknown Total Protein 7.5 g/dL (6.3-8.2) 03/06/17 05:35 Albumin 3.9 g/dL (3.9-5) 03/06/17 05:35 Albumin/Globulin Ratio 1.1 % 03/06/17 05:35 Triglycerides 162 mg/dL (2-149) H 03/06/17 10:09 Cholesterol 159 mg/dL (50-199) 03/06/17 10:09 LDL Cholesterol Direct 77 mg/dL (50-130) 03/06/17 10:09 HDL Cholesterol 50 mg/dL (40-59) 03/06/17 10:09 Cholesterol/HDL Ratio 3.18 % 03/06/17 10:09 Lipase 42 units/L (13-60) 03/06/17 05:35 Blood Type O POSITIVE 03/06/17 05:45 Antibody Screen TNR 03/06/17 05:45 BALDEV Antibody Screen Negative 03/06/17 05:45
[2017-03-07] MEDS: XALATAN 0.005% OD SCH ×2 (17:26→21:57)
--- NOTE | 2017-03-07 18:02 | XRay Report ---
FINAL REPORT EXAM: XR ABDOMEN 1V AP HISTORY: dobhoff placement TECHNIQUE: AP view the abdomen PRIORS: None. FINDINGS: There has been placement of a Dobhoff feeding tube. The distal tip overlies the fundus of the stomach. Bowel gas pattern is nonspecific. Few mildly prominent small bowel loops are noted. Otherwise no acute findings. IMPRESSION: Dobhoff tube with tip at the fundus of the stomach
[2017-03-07] MEDS: REMERON PO SCH ×2 (21:57→22:58)
[2017-03-07] MEDS: NOVOLOG SUB-Q SCH ×2 (21:57→22:58)
[2017-03-07] MEDS: D5/0.45NS 1,000 ML IV SCH (22:55)
[2017-03-08] MEDS: COMBIGAN 0.2-0.5% OD SCH ×2 (02:51→12:13)
--- NOTE | 2017-03-08 04:20 | XRay Report ---
FINAL REPORT PROCEDURE: XR ABDOMEN 1V AP TECHNIQUE: Abdominal radiograph, single supine AP view. HISTORY: placement of dobhoff COMPARISON: 03/07/2017 FINDINGS: Bowel gas pattern:Nonobstructive. Masses or calcifications:None. Bony structures:No significant abnormality. Other:The feeding tube ends in the upper stomach. IMPRESSION: The feeding tube ends in the upper stomach
[2017-03-08] MEDS: NOVOLOG SUB-Q SCH ×3 (08:00→17:24)
[2017-03-08] MEDS: LEVEMIR SUB-Q SCH (12:11)
[2017-03-08] MEDS: HEPARIN SUB-Q SCH ×2 (12:11→22:50)
[2017-03-08] MEDS: COZAAR PO SCH (12:11)
[2017-03-08] MEDS: LONITEN PO SCH (12:12)
[2017-03-08] MEDS: LOPRESSOR PO SCH ×2 (12:12→22:51)
[2017-03-08] MEDS: PEPCID PO SCH (12:13)
[2017-03-08] MEDS: NORVASC PO SCH (12:13)
[2017-03-08] MEDS: PEPCID IV SCH (12:16)
--- NOTE | 2017-03-08 12:51 | Progress Note ---
Assessment and Plan Assessment and plan: DKA - Managed according to DKA protocol and resolved Diabetes mellitus type 2 - Insulin sliding scale insulin - We'll manage his insulin as needed End-stage and is on hemodialysis - Nephrology is on board - He will get his hemodialysis as scheduled Hyperkalemia - waiting for the morning lab results Lactic acidosis - Blood cultures are negative and antibiotics are discontinued - waiting the repeat blood culture Hematemesis - GI consulted - Recommend EGD, Protonix, monitor H&H Metabolic encephalopathy - We'll treat the underlying cause Hypertension - Uncontrolled - Continue the current medications and dialysis DVT prophylaxis - SCD because of his GI bleed Disposition - Transfer to the floor No family member was in the room to discuss the management plan. History Interval history: Patient was seen and evaluated this morning, patient is demented. Vision does not in pain or in distress. Hospitalist Physical - Physical exam Narrative exam: Not in cardiopulmonary distress. The patient appeared well nourished and normally developed. Vital signs as documented. Head exam is unremarkable. No scleral icterus . Neck is without jugular venous distension, thyromegaly, or carotid bruits. Lungs are clear to auscultation. Cardiac exam reveals regular rate and Rhythm. Abdominal exam reveals normal bowel sounds, no masses, no organomegaly and no aortic enlargement. Extremities are nonedematous and both femoral and pedal pulses are normal. DRUG ROOM OPERATOR: Demented. - Constitutional Vitals: Temp Pulse Resp BP Pulse Ox 97.6 F 70 20 155/72 99 03/08/17 10:52 03/08/17 10:52 03/08/17 10:52 03/08/17 10:52 03/08/17 10:52 General appearance: Present: mild distress, cachectic, other (minimally communicative) Results - Labs CBC & Chem 7: 03/07/17 03:45 03/07/17 10:29 Labs: Laboratory Last Values WBC 8.7 K/mm3 (4.5-11.0) 03/07/17 03:45 RBC 4.14 M/mm3 (3.65-5.03) 03/07/17 03:45 Hgb 12.4 gm/dl (11.8-15.2) 03/07/17 03:45 Hct 37.3 % (35.5-45.6) 03/07/17 03:45 MCV 90 fl (84-94) D 03/07/17 03:45 MCH 30 pg (28-32) 03/07/17 03:45 MCHC 33 % (32-34) 03/07/17 03:45 RDW 16.7 % (13.2-15.2) H 03/07/17 03:45 Plt Count 254 K/mm3 (140-440) 03/07/17 03:45 Lymph % (Auto) 4.7 % (13.4-35.0) L 03/06/17 05:35 [place] % (Auto) 10.1 % (0.0-7.3) H 03/06/17 05:35 Eos % (Auto) 0.0 % (0.0-4.3) 03/06/17 05:35 Baso % (Auto) 0.5 % (0.0-1.8) 03/06/17 05:35 Lymph # 0.4 K/mm3 (1.2-5.4) L 03/06/17 05:35 [place] # 0.8 K/mm3 (0.0-0.8) 03/06/17 05:35 Eos # 0.0 K/mm3 (0.0-0.4) 03/06/17 05:35 Baso # 0.0 K/mm3 (0.0-0.1) 03/06/17 05:35 Add Manual Diff Complete 03/07/17 03:45 Total Counted 100 03/07/17 03:45 Seg Neutrophils % Pigment Pumper 03/07/17 03:45 Seg Neuts % (Manual) 79.0 % (40.0-70.0) H 03/07/17 03:45 Band Neutrophils % 8.0 % 03/07/17 03:45 Lymphocytes % (Manual) 5.0 % (13.4-35.0) L 03/07/17 03:45 Reactive Lymphs % (Man) 0 % 03/07/17 03:45 Monocytes % (Manual) 8.0 % (0.0-7.3) H 03/07/17 03:45 Eosinophils % (Manual) 0 % (0.0-4.3) 03/07/17 03:45 Basophils % (Manual) 0 % (0.0-1.8) 03/07/17 03:45 Metamyelocytes % 0 % 03/07/17 03:45 Myelocytes % 0 % 03/07/17 03:45 Promyelocytes % 0 % 03/07/17 03:45 Blast Cells % 0 % 03/07/17 03:45 Nucleated RBC % Not Reportable 03/07/17 03:45 Seg Neutrophils # 6.4 K/mm3 (1.8-7.7) 03/06/17 05:35 Seg Neutrophils # Man 6.9 K/mm3 (1.8-7.7) 03/07/17 03:45 Band Neutrophils # 0.7 K/mm3 03/07/17 03:45 Lymphocytes # (Manual) 0.4 K/mm3 (1.2-5.4) L 03/07/17 03:45 Abs React Lymphs (Man) 0.0 K/mm3 03/07/17 03:45 Monocytes # (Manual) 0.7 K/mm3 (0.0-0.8) 03/07/17 03:45 Eosinophils # (Manual) 0.0 K/mm3 (0.0-0.4) 03/07/17 03:45 Basophils # (Manual) 0.0 K/mm3 (0.0-0.1) 03/07/17 03:45 Metamyelocytes # 0.0 K/mm3 03/07/17 03:45 Myelocytes # 0.0 K/mm3 03/07/17 03:45 Promyelocytes # 0.0 K/mm3 03/07/17 03:45 Blast Cells # 0.0 K/mm3 03/07/17 03:45 WBC Morphology Not Reportable 03/07/17 03:45 Hypersegmented Neuts Not Reportable 03/07/17 03:45 Hyposegmented Neuts Not Reportable 03/07/17 03:45 Hypogranular Neuts Not Reportable 03/07/17 03:45 Smudge Cells Not Reportable 03/07/17 03:45 Toxic Granulation Not Reportable 03/07/17 03:45 Toxic Vacuolation Not Reportable 03/07/17 03:45 Dohle Bodies Not Reportable 03/07/17 03:45 Pelger-Huet Anomaly Not Reportable 03/07/17 03:45 Jose Rods Not Reportable 03/07/17 03:45 Platelet Estimate Consistent w auto 03/07/17 03:45 Clumped Platelets Not Reportable 03/07/17 03:45 Plt Clumps, EDTA Not Reportable 03/07/17 03:45 Large Platelets Not Reportable 03/07/17 03:45 Giant Platelets Not Reportable 03/07/17 03:45 Platelet Satelliting Not Reportable 03/07/17 03:45 Plt Morphology Comment Not Reportable 03/07/17 03:45 RBC Morphology Normal 03/07/17 03:45 Dimorphic RBCs Not Reportable 03/07/17 03:45 Polychromasia Not Reportable 03/07/17 03:45 Hypochromasia Not Reportable 03/07/17 03:45 Poikilocytosis Not Reportable 03/07/17 03:45 Anisocytosis Not Reportable 03/07/17 03:45 Microcytosis Not Reportable 03/07/17 03:45 Macrocytosis Not Reportable 03/07/17 03:45 Spherocytes Not Reportable 03/07/17 03:45 Pappenheimer Bodies Not Reportable 03/07/17 03:45 Sickle Cells Not Reportable 03/07/17 03:45 Target Cells Not Reportable 03/07/17 03:45 Tear Drop Cells Not Reportable 03/07/17 03:45 Ovalocytes Not Reportable 03/07/17 03:45 Helmet Cells Not Reportable 03/07/17 03:45 [place] Bodies Not Reportable 03/07/17 03:45 [place] Rings Not Reportable 03/07/17 03:45 [place] Cells Not Reportable 03/07/17 03:45 Bite Cells Not Reportable 03/07/17 03:45 Crenated Cell Not Reportable 03/07/17 03:45 Elliptocytes Not Reportable 03/07/17 03:45 Acanthocytes (Spur) Not Reportable 03/07/17 03:45 Rouleaux Not Reportable 03/07/17 03:45 Hemoglobin C Crystals Not Reportable 03/07/17 03:45 Schistocytes Not Reportable 03/07/17 03:45 Malaria parasites Not Reportable 03/07/17 03:45 [place] Bodies Not Reportable 03/07/17 03:45 Hem Pathologist Commnt No 03/07/17 03:45 PT 15.2 Sec. (12.2-14.9) H 03/06/17 05:35 INR 1.14 (0.87-1.13) H 03/06/17 05:35 APTT 41.5 Sec. (24.2-36.6) H 03/06/17 05:35 POC ABG pH 7.300 (7.35-7.45) L 03/06/17 13:12 POC ABG pCO2 40.0 (35-45) 03/06/17 13:12 POC ABG pO2 83 (80-105) 03/06/17 13:12 POC ABG HCO3 19.7 03/06/17 13:12 POC ABG Total CO2 21 03/06/17 13:12 POC ABG O2 Sat 95 03/06/17 13:12 POC ABG Base Excess -7 03/06/17 13:12 FiO2 28 % 03/06/17 13:12 Sodium 140 mmol/L (137-145) 03/07/17 10:29 Potassium 5.0 mmol/L (3.6-5.0) D 03/07/17 10:29 Chloride 94.0 mmol/L (98-107) L 03/07/17 10:29 Carbon Dioxide 25 mmol/L (22-30) 03/07/17 10:29 Anion Gap 26 mmol/L 03/07/17 10:29 BUN 45 mg/dL (9-20) H 03/07/17 10:29 Creatinine 6.3 mg/dL (0.8-1.5) H 03/07/17 10:29 Estimated GFR 11 ml/min 03/07/17 10:29 BUN/Creatinine Ratio 7.14 % 03/07/17 10:29 Glucose 206 mg/dL (75-100) H 03/07/17 10:29 POC Glucose 323 (70-105) H 03/08/17 10:55 Hemoglobin A1c 10.1 % (4-6) H 03/06/17 05:35 Osmolality 373 Mosm/kg 03/06/17 08:04 Lactic Acid 2.60 mmol/L (0.7-2.0) H* 03/07/17 02:45 Calcium 8.5 mg/dL (8.4-10.2) 03/07/17 10:29 Phosphorus 4.40 mg/dL (2.5-4.5) D 03/07/17 03:45 Magnesium 1.60 mg/dL (1.7-2.3) L 03/07/17 03:45 Total Bilirubin 0.40 mg/dL (0.1-1.2) 03/06/17 05:35 AST 12 units/L (5-40) 03/06/17 05:35 ALT 11 units/L (7-56) 03/06/17 05:35 Alkaline Phosphatase 144 units/L (35-129) H 03/06/17 05:35 C-Reactive Protein 11.40 mg/dL (0.00-1.30) H 03/07/17 Unknown Total Protein 7.5 g/dL (6.3-8.2) 03/06/17 05:35 Albumin 3.9 g/dL (3.9-5) 03/06/17 05:35 Albumin/Globulin Ratio 1.1 % 03/06/17 05:35 Triglycerides 162 mg/dL (2-149) H 03/06/17 10:09 Cholesterol 159 mg/dL (50-199) 03/06/17 10:09 LDL Cholesterol Direct 77 mg/dL (50-130) 03/06/17 10:09 HDL Cholesterol 50 mg/dL (40-59) 03/06/17 10:09 Cholesterol/HDL Ratio 3.18 % 03/06/17 10:09 Lipase 42 units/L (13-60) 03/06/17 05:35 Blood Type O POSITIVE 03/06/17 05:45 Antibody Screen TNR 03/06/17 05:45 BALDEV Antibody Screen Negative 03/06/17 05:45
--- NOTE | 2017-03-08 14:34 | Progress Note ---
Assessment and Plan Assessment: * End stage renal disease on HD (outpatient MWF schedule) * DKA * Hyperkalemia - resolved * GI bleed * Hypertension Plan: * Hemodialysis today, UF as tolerated * Resume outpatient dialysis MWF schedule next week * GI following - no EGD at this time * Epogen for goal Hb 10-12 * Tight glycemic control per primary team * Continue antiHTN medications Subjective Date of service: 03/08/17 Principal diagnosis: DKA; hematemesis Interval history: Patient seen on dialysis. He has no complaints. Objective - Vital Signs Vital signs: Vital Signs - 12hr 03/08/17 03/08/17 03/08/17 06:47 07:16 10:00 Temperature 98.6 F 97.5 F L Pulse Rate 79 Pulse Rate [ 65 61 Left Dorsalis Pedis] Respiratory 20 16 Rate Blood Pressure 159/76 176/99 [Left Arm] O2 Sat by Pulse 98 99 97 Oximetry 03/08/17 10:52 Temperature 97.6 F Pulse Rate Pulse Rate [ 70 Left Dorsalis Pedis] Respiratory 20 Rate Blood Pressure 155/72 [Left Arm] O2 Sat by Pulse 99 Oximetry - General Appearance General appearance: well-developed, well-nourished EENT: ATNC Respiratory: Present: Clear to Ascultation Cardiology: regular, S1S2 Gastrointestinal: normal, no tenderness, no distended Musculoskeletal: other (no edema) Psychiatric: cooperative - Lab 03/08/17 15:30 03/08/17 15:30 Most recent lab results Calcium 8.5 mg/dL (8.4-10.2) 03/07/17 10:29 Phosphorus 4.40 mg/dL (2.5-4.5) D 03/07/17 03:45 Magnesium 1.60 mg/dL (1.7-2.3) L 03/07/17 03:45
--- NOTE | 2017-03-08 14:58 | Progress Note ---
Assessment and Plan - Patient Problems (1) DKA (diabetic ketoacidoses) Current Visit: Yes Status: Acute Qualifiers: Diabetes mellitus type: D Diabetes mellitus complication detail: D Plan to address problem: - resolved - transitioned to long acting insulin (lantus 20units q24h) - enteral nutrition as tolerated (2) Acute on chronic kidney failure Current Visit: Yes Status: Acute Qualifiers: Acute renal failure type: A Chronic kidney disease stage: C Plan to address problem: - apparently ESRD on M// schedule - HD/UF today - electrolytes shifting appropriately with DKA treatment - per nephrology otherwise (3) Acute encephalopathy Current Visit: Yes Status: Acute Plan to address problem: - likely chronic component - improved in short term after treatment for DKA and post dialysis - follow clinically (4) Anemia Current Visit: No Status: Chronic Qualifiers: Anemia type: A Iron deficiency anemia type: I Vitamin B12 deficiency anemia type: V Folate deficiency anemia type: F Bone marrow failure anemia type: B Hemolytic anemia type: H Other causes of anemia: O Chronic kidney disease stage: C Plan to address problem: - likely chronic disease component - doubt significant ABLA as no active GI bleeding so far - continue PPI therapy - send iron studies and treat as necessary (5) Hematemesis/vomiting blood Current Visit: Yes Status: Acute Qualifiers: Nausea presence: N Plan to address problem: - no active bleeding - continue zofran for N&V - GI evaluation ongoing - continue PPI therapy - trend H&H (stable) (6) Hypertension Current Visit: No Status: Chronic Qualifiers: Hypertension type: H Plan to address problem: - continue home antihypertensives and adjust as necessary (7) Discharge planning issues Current Visit: No Status: Acute Plan to address problem: - improved Subjective Date of service: 03/08/17 Principal diagnosis: DKA; hematemesis Interval history: Seen and examined at bedside; 24 hour events reviewed; nursing and respiratory care staff consulted; no adverse overnight events reported to me; resting peacefully in bed; dementia element; tolerating tube feeds; no emesis or overt aspiration Objective Vital Signs - 12hr 03/08/17 03/08/17 03/08/17 06:47 07:16 10:00 Temperature 98.6 F 97.5 F L Pulse Rate 79 Pulse Rate [ 65 61 Left Dorsalis Pedis] Respiratory 20 16 Rate Blood Pressure 159/76 176/99 [Left Arm] O2 Sat by Pulse 98 99 97 Oximetry 03/08/17 10:52 Temperature 97.6 F Pulse Rate Pulse Rate [ 70 Left Dorsalis Pedis] Respiratory 20 Rate Blood Pressure 155/72 [Left Arm] O2 Sat by Pulse 99 Oximetry Constitutional: no acute distress, other (somnolent) Eyes: non-icteric ENT: oropharynx moist Neck: supple, no lymphadenopathy Effort: normal, mildly labored Ascultation: Bilateral: diminished breath sounds, rales (scant in bases) Cardiovascular: regular rate and rhythm Gastrointestinal: normoactive bowel sounds, soft, non-tender, non-distended Integumentary: normal Extremities: no cyanosis, no edema, pulses normal, no ischemia or petechiae, other (chronic lichenification changes to skin in lower extremities) Neurologic: pupils equal and round, other (Post prior CVA hemiparesis) Psychiatric: other (unable to assess) CBC and BMP: 03/09/17 04:13 03/09/17 04:13 ABG, PT/INR, D-dimer: ABG POC ABG pH 7.300 (7.35-7.45) L 03/06/17 13:12 POC ABG pCO2 40.0 (35-45) 03/06/17 13:12 POC ABG pO2 83 (80-105) 03/06/17 13:12 POC ABG HCO3 19.7 03/06/17 13:12 POC ABG Total CO2 21 03/06/17 13:12 POC ABG O2 Sat 95 03/06/17 13:12 PT/INR, D-dimer PT 15.2 Sec. (12.2-14.9) H 03/06/17 05:35 INR 1.14 (0.87-1.13) H 03/06/17 05:35 Abnormal lab findings: Abnormal Labs 03/06/17 03/06/17 03/06/17 12:23 13:03 13:12 RDW Seg Neuts % (Manual) Lymphocytes % (Manual) Monocytes % (Manual) Lymphocytes # (Manual) POC ABG pH 7.300 L Sodium 133 L 132 L Potassium 6.2 H* D Chloride 86.1 L 87.9 L Carbon Dioxide 15 L 16 L BUN 83 H 84 H Creatinine 9.1 H 9.1 H Glucose 820 H* 730 H* POC Glucose Lactic Acid Calcium 8.3 L 8.0 L Magnesium C-Reactive Protein 03/06/17 03/06/17 03/06/17 15:30 16:40 17:46 RDW Seg Neuts % (Manual) Lymphocytes % (Manual) Monocytes % (Manual) Lymphocytes # (Manual) POC ABG pH Sodium 136 L Potassium Chloride 90.2 L Carbon Dioxide 20 L BUN 84 H Creatinine 9.0 H Glucose 571 H* POC Glucose 413 H 332 H Lactic Acid Calcium 8.3 L Magnesium C-Reactive Protein 03/06/17 03/06/17 03/06/17 18:42 19:33 23:20 RDW Seg Neuts % (Manual) Lymphocytes % (Manual) Monocytes % (Manual) Lymphocytes # (Manual) POC ABG pH Sodium Potassium Chloride Carbon Dioxide BUN Creatinine Glucose POC Glucose 222 H 142 H 148 H Lactic Acid Calcium Magnesium C-Reactive Protein 03/07/17 03/07/17 03/07/17 00:05 00:58 02:05 RDW Seg Neuts % (Manual) Lymphocytes % (Manual) Monocytes % (Manual) Lymphocytes # (Manual) POC ABG pH Sodium Potassium Chloride Carbon Dioxide BUN Creatinine Glucose POC Glucose 205 H 259 H 255 H Lactic Acid Calcium Magnesium C-Reactive Protein 03/07/17 03/07/17 03/07/17 02:45 03:45 03:45 RDW 16.7 H Seg Neuts % (Manual) 79.0 H Lymphocytes % (Manual) 5.0 L Monocytes % (Manual) 8.0 H Lymphocytes # (Manual) 0.4 L POC ABG pH Sodium Potassium Chloride 95.3 L Carbon Dioxide BUN 41 H Creatinine 5.3 H Glucose 179 H POC Glucose Lactic Acid 2.60 H* Calcium Magnesium C-Reactive Protein 03/07/17 03/07/17 03/07/17 03:45 03:53 05:09 RDW Seg Neuts % (Manual) Lymphocytes % (Manual) Monocytes % (Manual) Lymphocytes # (Manual) POC ABG pH Sodium Potassium Chloride Carbon Dioxide BUN Creatinine Glucose POC Glucose 187 H 130 H Lactic Acid Calcium Magnesium 1.60 L C-Reactive Protein 03/07/17 03/07/17 03/07/17 07:54 10:05 10:29 RDW Seg Neuts % (Manual) Lymphocytes % (Manual) Monocytes % (Manual) Lymphocytes # (Manual) POC ABG pH Sodium Potassium Chloride 94.0 L Carbon Dioxide BUN 45 H Creatinine 6.3 H Glucose 206 H POC Glucose 120 H 126 H Lactic Acid Calcium Magnesium C-Reactive Protein 03/07/17 03/07/17 03/07/17 13:02 16:46 21:57 RDW Seg Neuts % (Manual) Lymphocytes % (Manual) Monocytes % (Manual) Lymphocytes # (Manual) POC ABG pH Sodium Potassium Chloride Carbon Dioxide BUN Creatinine Glucose POC Glucose 147 H 216 H 146 H Lactic Acid Calcium Magnesium C-Reactive Protein 03/07/17 03/08/17 03/08/17 Unknown 00:08 10:55 RDW Seg Neuts % (Manual) Lymphocytes % (Manual) Monocytes % (Manual) Lymphocytes # (Manual) POC ABG pH Sodium Potassium Chloride Carbon Dioxide BUN Creatinine Glucose POC Glucose 132 H 323 H Lactic Acid Calcium Magnesium C-Reactive Protein 11.40 H
[2017-03-08 15:58] LABS: Basophils % (Auto) 0.3 % (0.0-1.8); Eosinophils % (Auto) 0.8 % (0.0-4.3); Hematocrit 31.5 % (35.5-45.6); Hemoglobin 10.4 gm/dl (11.8-15.2); Mean Corpuscular HGB Conc 33 % (32-34); Mean Corpuscular Hemoglobin 31 pg (28-32); Mean Corpuscular Volume 93 fl (84-94); Platelet Count 218 K/mm3 (140-440); Red Blood Count 3.39 M/mm3 (3.65-5.03); White Blood Count 4.8 K/mm3 (4.5-11.0)
[2017-03-08 16:08] LABS: BUN/Creatinine Ratio 8.33; Calcium 8.3 mg/dL (8.4-10.2); Chloride 93.4 mmol/L (98-107); Potassium 3.6 mmol/L (3.6-5.0)
[2017-03-08] MEDS ORDERED: NACL 0.9 (PRIMING MACHINE ONLY DIALYSIS) MC ONE (16:43)
[2017-03-08] MEDS: XALATAN 0.005% OD SCH (22:50)
[2017-03-08] MEDS: REMERON PO SCH (22:51)
[2017-03-08] MEDS: D5/0.45NS 1,000 ML IV SCH (22:51)
[2017-03-09] MEDS: NOVOLOG SUB-Q SCH ×6 (00:48→22:20)
[2017-03-09] MEDS ORDERED: APRESOLINE IV PRN (01:05)
[2017-03-09] MEDS: COMBIGAN 0.2-0.5% OD SCH ×2 (04:11→12:47)
[2017-03-09 04:57] LABS: Basophils % (Auto) 0.3 % (0.0-1.8); Eosinophils % (Auto) 2.2 % (0.0-4.3); Hematocrit 36.5 % (35.5-45.6); Hemoglobin 11.7 gm/dl (11.8-15.2); Mean Corpuscular HGB Conc 32 % (32-34); Mean Corpuscular Hemoglobin 30 pg (28-32); Mean Corpuscular Volume 93 fl (84-94); Platelet Count 241 K/mm3 (140-440); Red Blood Count 3.95 M/mm3 (3.65-5.03); Red Cell Distribution Width 17.3 % (13.2-15.2); White Blood Count 4.2 K/mm3 (4.5-11.0)
[2017-03-09 05:05] LABS: BUN/Creatinine Ratio 6.59; Calcium 8.4 mg/dL (8.4-10.2); Chloride 93.7 mmol/L (98-107); Magnesium 1.8 mg/dL (1.7-2.3); Potassium 3.9 mmol/L (3.6-5.0)
[2017-03-09] MEDS: PEPCID PO SCH (10:57)
[2017-03-09] MEDS: LONITEN PO SCH (10:57)
[2017-03-09] MEDS: LOPRESSOR PO SCH ×2 (10:57→21:59)
[2017-03-09] MEDS: COZAAR PO SCH (10:57)
[2017-03-09] MEDS: NORVASC PO SCH (10:57)
[2017-03-09] MEDS: HEPARIN SUB-Q SCH ×2 (10:57→21:59)
[2017-03-09] MEDS: LEVEMIR SUB-Q SCH (10:57)
--- NOTE | 2017-03-09 12:44 | Progress Note ---
Assessment and Plan Assessment and plan: DKA - Managed according to DKA protocol and resolved Diabetes mellitus type 2 - Insulin sliding scale insulin - We'll manage his insulin as needed End-stage and is on hemodialysis - Nephrology is following - He will get his hemodialysis as scheduled Hyperkalemia - Resolved Lactic acidosis - Blood cultures are negative and antibiotics are discontinued - Resolved Hematemesis - No bleeding after admission - GI consulted - Recommend H2 rico, monitor H&H, no EGD unless the patient has overt bleeding Metabolic encephalopathy - Baseline Hypertension - Uncontrolled - Continue the current medications and dialysis - I'll titrate up the hydralazine DVT prophylaxis - SCD because of his GI bleed Disposition - Pending usp placement History Interval history: Patient was seen and evaluated this morning, patient is demented. Patient is not in pain or distress. Hospitalist Physical - Physical exam Narrative exam: Not in cardiopulmonary distress. The patient appeared well nourished and normally developed. Vital signs as documented. Head exam is unremarkable. No scleral icterus . Neck is without jugular venous distension, thyromegaly, or carotid bruits. Lungs are clear to auscultation. Cardiac exam reveals regular rate and Rhythm. Abdominal exam reveals normal bowel sounds, no masses, no organomegaly and no aortic enlargement. Extremities are nonedematous and both femoral and pedal pulses are normal. [employer]: Demented. - Constitutional Vitals: Temp Pulse Resp BP Pulse Ox 97.8 F 79 20 207/94 94 03/09/17 11:01 03/09/17 11:01 03/09/17 11:01 03/09/17 11:01 03/09/17 11:01 General appearance: Present: mild distress, cachectic, other (minimally communicative) Results - Labs CBC & Chem 7: 03/09/17 04:13 03/09/17 04:13 Labs: Laboratory Last Values WBC 4.2 K/mm3 (4.5-11.0) L 03/09/17 04:13 RBC 3.95 M/mm3 (3.65-5.03) 03/09/17 04:13 Hgb 11.7 gm/dl (11.8-15.2) L 03/09/17 04:13 Hct 36.5 % (35.5-45.6) 03/09/17 04:13 MCV 93 fl (84-94) 03/09/17 04:13 MCH 30 pg (28-32) 03/09/17 04:13 MCHC 32 % (32-34) 03/09/17 04:13 RDW 17.3 % (13.2-15.2) H 03/09/17 04:13 Plt Count 241 K/mm3 (140-440) 03/09/17 04:13 Lymph % (Auto) 13.5 % (13.4-35.0) 03/09/17 04:13 [place] % (Auto) 10.5 % (0.0-7.3) H 03/09/17 04:13 Eos % (Auto) 2.2 % (0.0-4.3) 03/09/17 04:13 Baso % (Auto) 0.3 % (0.0-1.8) 03/09/17 04:13 Lymph # 0.6 K/mm3 (1.2-5.4) L 03/09/17 04:13 [place] # 0.4 K/mm3 (0.0-0.8) 03/09/17 04:13 Eos # 0.1 K/mm3 (0.0-0.4) 03/09/17 04:13 Baso # 0.0 K/mm3 (0.0-0.1) 03/09/17 04:13 Add Manual Diff Complete 03/07/17 03:45 Total Counted 100 03/07/17 03:45 Seg Neutrophils % 73.5 % (40.0-70.0) H 03/09/17 04:13 Seg Neuts % (Manual) 79.0 % (40.0-70.0) H 03/07/17 03:45 Band Neutrophils % 8.0 % 03/07/17 03:45 Lymphocytes % (Manual) 5.0 % (13.4-35.0) L 03/07/17 03:45 Reactive Lymphs % (Man) 0 % 03/07/17 03:45 Monocytes % (Manual) 8.0 % (0.0-7.3) H 03/07/17 03:45 Eosinophils % (Manual) 0 % (0.0-4.3) 03/07/17 03:45 Basophils % (Manual) 0 % (0.0-1.8) 03/07/17 03:45 Metamyelocytes % 0 % 03/07/17 03:45 Myelocytes % 0 % 03/07/17 03:45 Promyelocytes % 0 % 03/07/17 03:45 Blast Cells % 0 % 03/07/17 03:45 Nucleated RBC % Not Reportable 03/07/17 03:45 Seg Neutrophils # 3.1 K/mm3 (1.8-7.7) 03/09/17 04:13 Seg Neutrophils # Man 6.9 K/mm3 (1.8-7.7) 03/07/17 03:45 Band Neutrophils # 0.7 K/mm3 03/07/17 03:45 Lymphocytes # (Manual) 0.4 K/mm3 (1.2-5.4) L 03/07/17 03:45 Abs React Lymphs (Man) 0.0 K/mm3 03/07/17 03:45 Monocytes # (Manual) 0.7 K/mm3 (0.0-0.8) 03/07/17 03:45 Eosinophils # (Manual) 0.0 K/mm3 (0.0-0.4) 03/07/17 03:45 Basophils # (Manual) 0.0 K/mm3 (0.0-0.1) 03/07/17 03:45 Metamyelocytes # 0.0 K/mm3 03/07/17 03:45 Myelocytes # 0.0 K/mm3 03/07/17 03:45 Promyelocytes # 0.0 K/mm3 03/07/17 03:45 Blast Cells # 0.0 K/mm3 03/07/17 03:45 WBC Morphology Not Reportable 03/07/17 03:45 Hypersegmented Neuts Not Reportable 03/07/17 03:45 Hyposegmented Neuts Not Reportable 03/07/17 03:45 Hypogranular Neuts Not Reportable 03/07/17 03:45 Smudge Cells Not Reportable 03/07/17 03:45 Toxic Granulation Not Reportable 03/07/17 03:45 Toxic Vacuolation Not Reportable 03/07/17 03:45 Dohle Bodies Not Reportable 03/07/17 03:45 Pelger-Huet Anomaly Not Reportable 03/07/17 03:45 Jose Rods Not Reportable 03/07/17 03:45 Platelet Estimate Consistent w auto 03/07/17 03:45 Clumped Platelets Not Reportable 03/07/17 03:45 Plt Clumps, EDTA Not Reportable 03/07/17 03:45 Large Platelets Not Reportable 03/07/17 03:45 Giant Platelets Not Reportable 03/07/17 03:45 Platelet Satelliting Not Reportable 03/07/17 03:45 Plt Morphology Comment Not Reportable 03/07/17 03:45 RBC Morphology Normal 03/07/17 03:45 Dimorphic RBCs Not Reportable 03/07/17 03:45 Polychromasia Not Reportable 03/07/17 03:45 Hypochromasia Not Reportable 03/07/17 03:45 Poikilocytosis Not Reportable 03/07/17 03:45 Anisocytosis Not Reportable 03/07/17 03:45 Microcytosis Not Reportable 03/07/17 03:45 Macrocytosis Not Reportable 03/07/17 03:45 Spherocytes Not Reportable 03/07/17 03:45 Pappenheimer Bodies Not Reportable 03/07/17 03:45 Sickle Cells Not Reportable 03/07/17 03:45 Target Cells Not Reportable 03/07/17 03:45 Tear Drop Cells Not Reportable 03/07/17 03:45 Ovalocytes Not Reportable 03/07/17 03:45 Helmet Cells Not Reportable 03/07/17 03:45 [place] Bodies Not Reportable 03/07/17 03:45 [place] Rings Not Reportable 03/07/17 03:45 [place] Cells Not Reportable 03/07/17 03:45 Bite Cells Not Reportable 03/07/17 03:45 Crenated Cell Not Reportable 03/07/17 03:45 Elliptocytes Not Reportable 03/07/17 03:45 Acanthocytes (Spur) Not Reportable 03/07/17 03:45 Rouleaux Not Reportable 03/07/17 03:45 Hemoglobin C Crystals Not Reportable 03/07/17 03:45 Schistocytes Not Reportable 03/07/17 03:45 Malaria parasites Not Reportable 03/07/17 03:45 [place] Bodies Not Reportable 03/07/17 03:45 Hem Pathologist Commnt No 03/07/17 03:45 PT 15.2 Sec. (12.2-14.9) H 03/06/17 05:35 INR 1.14 (0.87-1.13) H 03/06/17 05:35 APTT 41.5 Sec. (24.2-36.6) H 03/06/17 05:35 POC ABG pH 7.300 (7.35-7.45) L 03/06/17 13:12 POC ABG pCO2 40.0 (35-45) 03/06/17 13:12 POC ABG pO2 83 (80-105) 03/06/17 13:12 POC ABG HCO3 19.7 03/06/17 13:12 POC ABG Total CO2 21 03/06/17 13:12 POC ABG O2 Sat 95 03/06/17 13:12 POC ABG Base Excess -7 03/06/17 13:12 FiO2 28 % 03/06/17 13:12 Sodium 136 mmol/L (137-145) L 03/09/17 04:13 Potassium 3.9 mmol/L (3.6-5.0) 03/09/17 04:13 Chloride 93.7 mmol/L (98-107) L 03/09/17 04:13 Carbon Dioxide 31 mmol/L (22-30) H 03/09/17 04:13 Anion Gap 15 mmol/L 03/09/17 04:13 BUN 31 mg/dL (9-20) H 03/09/17 04:13 Creatinine 4.7 mg/dL (0.8-1.5) H 03/09/17 04:13 Estimated GFR 15 ml/min 03/09/17 04:13 BUN/Creatinine Ratio 6.59 % 03/09/17 04:13 Glucose 158 mg/dL (75-100) H 03/09/17 04:13 POC Glucose 259 (70-105) H 03/08/17 23:49 Hemoglobin A1c 10.1 % (4-6) H 03/06/17 05:35 Osmolality 373 Mosm/kg 03/06/17 08:04 Lactic Acid 1.30 mmol/L (0.7-2.0) 03/08/17 15:30 Calcium 8.4 mg/dL (8.4-10.2) 03/09/17 04:13 Phosphorus 4.40 mg/dL (2.5-4.5) D 03/07/17 03:45 Magnesium 1.80 mg/dL (1.7-2.3) 03/09/17 04:13 Total Bilirubin 0.40 mg/dL (0.1-1.2) 03/06/17 05:35 AST 12 units/L (5-40) 03/06/17 05:35 ALT 11 units/L (7-56) 03/06/17 05:35 Alkaline Phosphatase 144 units/L (35-129) H 03/06/17 05:35 C-Reactive Protein 11.40 mg/dL (0.00-1.30) H 03/07/17 Unknown Total Protein 7.5 g/dL (6.3-8.2) 03/06/17 05:35 Albumin 3.9 g/dL (3.9-5) 03/06/17 05:35 Albumin/Globulin Ratio 1.1 % 03/06/17 05:35 Triglycerides 162 mg/dL (2-149) H 03/06/17 10:09 Cholesterol 159 mg/dL (50-199) 03/06/17 10:09 LDL Cholesterol Direct 77 mg/dL (50-130) 03/06/17 10:09 HDL Cholesterol 50 mg/dL (40-59) 03/06/17 10:09 Cholesterol/HDL Ratio 3.18 % 03/06/17 10:09 Lipase 42 units/L (13-60) 03/06/17 05:35 Blood Type O POSITIVE 03/06/17 05:45 Antibody Screen TNR 03/06/17 05:45 BALDEV Antibody Screen Negative 03/06/17 05:45
[2017-03-09] MEDS: APRESOLINE IV PRN (12:57)
--- NOTE | 2017-03-09 14:42 | Progress Note ---
Assessment and Plan Assessment: * End stage renal disease on HD (outpatient MWF schedule) * DKA * Hyperkalemia - resolved * GI bleed * Hypertension Plan: * Hemodialysis today, UF as tolerated * Resume outpatient dialysis MWF schedule tomorrow * GI following - no EGD at this time * Epogen for goal Hb 10-12 * Tight glycemic control per primary team * Continue antiHTN medications * Nutrition per primary team - currently on TF Subjective Date of service: 03/09/17 Principal diagnosis: DKA; hematemesis Interval history: Patient has no complaints today. Objective - Vital Signs Vital signs: Vital Signs - 12hr 03/09/17 03/09/17 03/09/17 06:42 07:23 09:48 Temperature 98.1 F 97.6 F Pulse Rate 60 Pulse Rate [ 57 L 64 Left Dorsalis Pedis] Respiratory 18 20 Rate Blood Pressure Blood Pressure 164/85 162/77 [Left Arm] O2 Sat by Pulse 98 99 Oximetry 03/09/17 03/09/17 11:01 12:57 Temperature 97.8 F Pulse Rate Pulse Rate [ 79 Left Dorsalis Pedis] Respiratory 20 Rate Blood Pressure 207/94 Blood Pressure 207/94 [Left Arm] O2 Sat by Pulse 94 Oximetry - General Appearance General appearance: well-developed EENT: other (NGT in place) Respiratory: Present: Clear to Ascultation Cardiology: regular, S1S2 Gastrointestinal: normal, no tenderness, no distended Integumentary: no rash Musculoskeletal: other (no edema) Psychiatric: cooperative - Lab 03/09/17 04:13 03/09/17 04:13 Most recent lab results Calcium 8.4 mg/dL (8.4-10.2) 03/09/17 04:13 Phosphorus 4.40 mg/dL (2.5-4.5) D 03/07/17 03:45 Magnesium 1.80 mg/dL (1.7-2.3) 03/09/17 04:13
[2017-03-09] MEDS ORDERED: NACL 0.9% 100 ML IV PRN (15:00)
--- NOTE | 2017-03-09 15:20 | Progress Note ---
Assessment and Plan - Patient Problems (1) DKA (diabetic ketoacidoses) Current Visit: Yes Status: Acute Qualifiers: Diabetes mellitus type: D Diabetes mellitus complication detail: D Plan to address problem: ( - resolved - transitioned to long acting insulin (Levimir) - continue enteral nutrition as tolerated - will likely need PEG (2) Acute on chronic kidney failure Current Visit: Yes Status: Acute Qualifiers: Acute renal failure type: A Chronic kidney disease stage: C Plan to address problem: - apparently ESRD on M// schedule - HD/UF today - electrolytes shifting appropriately with DKA treatment - per nephrology otherwise (3) Acute encephalopathy Current Visit: Yes Status: Acute Plan to address problem: - definitely chronic component (post prior CVA) - improved in short term after treatment for DKA and post dialysis - follow clinically (4) Anemia Current Visit: No Status: Chronic Qualifiers: Anemia type: A Iron deficiency anemia type: I Vitamin B12 deficiency anemia type: V Folate deficiency anemia type: F Bone marrow failure anemia type: B Hemolytic anemia type: H Other causes of anemia: O Chronic kidney disease stage: C Plan to address problem: - likely chronic disease component - doubt significant ABLA as no active GI bleeding so far - continue PPI/H2 rico therapy - send iron studies and treat as necessary (5) Hematemesis/vomiting blood Current Visit: Yes Status: Acute Qualifiers: Nausea presence: N Plan to address problem: - no active bleeding - continue zofran for N&V - GI evaluation ongoing - continue PPI therapy - trend H&H (stable) (6) Hypertension Current Visit: No Status: Chronic Qualifiers: Hypertension type: H Plan to address problem: - continue home antihypertensives and adjust as necessary (7) Discharge planning issues Current Visit: No Status: Acute Plan to address problem: - improved - addressing oropharyngeal dysphagia then placement Subjective Date of service: 03/09/17 Principal diagnosis: DKA; hematemesis Interval history: Seen and examined at bedside; 24 hour events reviewed; nursing and respiratory care staff consulted; no adverse overnight events reported to me; resting peacefully in bed; AMS is persistent; arousable; no emesis or overt aspiration; on 2L NC Objective Vital Signs - 12hr 03/09/17 03/09/17 03/09/17 06:42 07:23 09:48 Temperature 98.1 F 97.6 F Pulse Rate 60 Pulse Rate [ 57 L 64 Left Dorsalis Pedis] Respiratory 18 20 Rate Blood Pressure Blood Pressure 164/85 162/77 [Left Arm] O2 Sat by Pulse 98 99 Oximetry 03/09/17 03/09/17 11:01 12:57 Temperature 97.8 F Pulse Rate Pulse Rate [ 79 Left Dorsalis Pedis] Respiratory 20 Rate Blood Pressure 207/94 Blood Pressure 207/94 [Left Arm] O2 Sat by Pulse 94 Oximetry Constitutional: no acute distress, other (somnolent) Eyes: non-icteric ENT: oropharynx moist Neck: supple, no lymphadenopathy Effort: mildly labored Ascultation: Bilateral: diminished breath sounds, rales (scant in bases) Cardiovascular: regular rate and rhythm Gastrointestinal: normoactive bowel sounds, soft, non-tender, non-distended Integumentary: normal Extremities: no cyanosis, no edema, pulses normal, no ischemia or petechiae, other (chronic lichenification changes to skin in lower extremities) Neurologic: pupils equal and round, other (Post prior CVA hemiparesis) Psychiatric: other (unable to assess) CBC and BMP: 03/13/17 05:45 03/14/17 03:47 ABG, PT/INR, D-dimer: ABG POC ABG pH 7.300 (7.35-7.45) L 03/06/17 13:12 POC ABG pCO2 40.0 (35-45) 03/06/17 13:12 POC ABG pO2 83 (80-105) 03/06/17 13:12 POC ABG HCO3 19.7 03/06/17 13:12 POC ABG Total CO2 21 03/06/17 13:12 POC ABG O2 Sat 95 03/06/17 13:12 PT/INR, D-dimer PT 15.2 Sec. (12.2-14.9) H 03/06/17 05:35 INR 1.14 (0.87-1.13) H 03/06/17 05:35 Abnormal lab findings: Abnormal Labs 03/06/17 03/06/17 03/06/17 12:23 13:03 13:12 WBC RBC Hgb Hct RDW Lymph % (Auto) [place] % (Auto) Lymph # Seg Neutrophils % Seg Neuts % (Manual) Lymphocytes % (Manual) Monocytes % (Manual) Lymphocytes # (Manual) POC ABG pH 7.300 L Sodium 133 L 132 L Potassium 6.2 H* D Chloride 86.1 L 87.9 L Carbon Dioxide 15 L 16 L BUN 83 H 84 H Creatinine 9.1 H 9.1 H Glucose 820 H* 730 H* POC Glucose Lactic Acid Calcium 8.3 L 8.0 L Magnesium C-Reactive Protein 03/06/17 03/06/17 03/06/17 15:30 16:40 17:46 WBC RBC Hgb Hct RDW Lymph % (Auto) [place] % (Auto) Lymph # Seg Neutrophils % Seg Neuts % (Manual) Lymphocytes % (Manual) Monocytes % (Manual) Lymphocytes # (Manual) POC ABG pH Sodium 136 L Potassium Chloride 90.2 L Carbon Dioxide 20 L BUN 84 H Creatinine 9.0 H Glucose 571 H* POC Glucose 413 H 332 H Lactic Acid Calcium 8.3 L Magnesium C-Reactive Protein 03/06/17 03/06/17 03/06/17 18:42 19:33 23:20 WBC RBC Hgb Hct RDW Lymph % (Auto) [place] % (Auto) Lymph # Seg Neutrophils % Seg Neuts % (Manual) Lymphocytes % (Manual) Monocytes % (Manual) Lymphocytes # (Manual) POC ABG pH Sodium Potassium Chloride Carbon Dioxide BUN Creatinine Glucose POC Glucose 222 H 142 H 148 H Lactic Acid Calcium Magnesium C-Reactive Protein 03/07/17 03/07/17 03/07/17 00:05 00:58 02:05 WBC RBC Hgb Hct RDW Lymph % (Auto) [place] % (Auto) Lymph # Seg Neutrophils % Seg Neuts % (Manual) Lymphocytes % (Manual) Monocytes % (Manual) Lymphocytes # (Manual) POC ABG pH Sodium Potassium Chloride Carbon Dioxide BUN Creatinine Glucose POC Glucose 205 H 259 H 255 H Lactic Acid Calcium Magnesium C-Reactive Protein 03/07/17 03/07/17 03/07/17 02:45 03:45 03:45 WBC RBC Hgb Hct RDW 16.7 H Lymph % (Auto) [place] % (Auto) Lymph # Seg Neutrophils % Seg Neuts % (Manual) 79.0 H Lymphocytes % (Manual) 5.0 L Monocytes % (Manual) 8.0 H Lymphocytes # (Manual) 0.4 L POC ABG pH Sodium Potassium Chloride 95.3 L Carbon Dioxide BUN 41 H Creatinine 5.3 H Glucose 179 H POC Glucose Lactic Acid 2.60 H* Calcium Magnesium C-Reactive Protein 03/07/17 03/07/17 03/07/17 03:45 03:53 05:09 WBC RBC Hgb Hct RDW Lymph % (Auto) [place] % (Auto) Lymph # Seg Neutrophils % Seg Neuts % (Manual) Lymphocytes % (Manual) Monocytes % (Manual) Lymphocytes # (Manual) POC ABG pH Sodium Potassium Chloride Carbon Dioxide BUN Creatinine Glucose POC Glucose 187 H 130 H Lactic Acid Calcium Magnesium 1.60 L C-Reactive Protein 03/07/17 03/07/17 03/07/17 07:54 10:05 10:29 WBC RBC Hgb Hct RDW Lymph % (Auto) [place] % (Auto) Lymph # Seg Neutrophils % Seg Neuts % (Manual) Lymphocytes % (Manual) Monocytes % (Manual) Lymphocytes # (Manual) POC ABG pH Sodium Potassium Chloride 94.0 L Carbon Dioxide BUN 45 H Creatinine 6.3 H Glucose 206 H POC Glucose 120 H 126 H Lactic Acid Calcium Magnesium C-Reactive Protein 03/07/17 03/07/17 03/07/17 13:02 16:46 21:57 WBC RBC Hgb Hct RDW Lymph % (Auto) [place] % (Auto) Lymph # Seg Neutrophils % Seg Neuts % (Manual) Lymphocytes % (Manual) Monocytes % (Manual) Lymphocytes # (Manual) POC ABG pH Sodium Potassium Chloride Carbon Dioxide BUN Creatinine Glucose POC Glucose 147 H 216 H 146 H Lactic Acid Calcium Magnesium C-Reactive Protein 03/07/17 03/08/17 03/08/17 Unknown 00:08 10:55 WBC RBC Hgb Hct RDW Lymph % (Auto) [place] % (Auto) Lymph # Seg Neutrophils % Seg Neuts % (Manual) Lymphocytes % (Manual) Monocytes % (Manual) Lymphocytes # (Manual) POC ABG pH Sodium Potassium Chloride Carbon Dioxide BUN Creatinine Glucose POC Glucose 132 H 323 H Lactic Acid Calcium Magnesium C-Reactive Protein 11.40 H 03/08/17 03/08/17 03/08/17 15:30 15:30 19:36 WBC RBC 3.39 L Hgb 10.4 L Hct 31.5 L RDW 17.0 H Lymph % (Auto) 12.4 L [place] % (Auto) Lymph # 0.6 L Seg Neutrophils % 79.3 H Seg Neuts % (Manual) Lymphocytes % (Manual) Monocytes % (Manual) Lymphocytes # (Manual) POC ABG pH Sodium 136 L Potassium Chloride 93.4 L Carbon Dioxide BUN 45 H Creatinine 5.4 H Glucose 216 H POC Glucose 173 H Lactic Acid Calcium 8.3 L Magnesium C-Reactive Protein 03/08/17 03/09/17 03/09/17 23:49 04:13 04:13 WBC 4.2 L RBC Hgb 11.7 L Hct RDW 17.3 H Lymph % (Auto) [place] % (Auto) 10.5 H Lymph # 0.6 L Seg Neutrophils % 73.5 H Seg Neuts % (Manual) Lymphocytes % (Manual) Monocytes % (Manual) Lymphocytes # (Manual) POC ABG pH Sodium 136 L Potassium Chloride 93.7 L Carbon Dioxide 31 H BUN 31 H Creatinine 4.7 H Glucose 158 H POC Glucose 259 H Lactic Acid Calcium Magnesium C-Reactive Protein
[2017-03-09] MEDS: XALATAN 0.005% OD SCH (17:32)
[2017-03-09] MEDS: REMERON PO SCH (21:58)
[2017-03-09] MEDS: D50W (25GM) IV PRN (22:31)
[2017-03-10] MEDS: COMBIGAN 0.2-0.5% OD SCH (01:01)
[2017-03-10 06:13] LABS: Basophils % (Auto) 0.9 % (0.0-1.8); Eosinophils % (Auto) 4.6 % (0.0-4.3); Hematocrit 33.6 % (35.5-45.6); Hemoglobin 10.8 gm/dl (11.8-15.2); Mean Corpuscular HGB Conc 32 % (32-34); Mean Corpuscular Hemoglobin 30 pg (28-32); Mean Corpuscular Volume 94 fl (84-94); Platelet Count 214 K/mm3 (140-440); Red Blood Count 3.59 M/mm3 (3.65-5.03); Red Cell Distribution Width 16.8 % (13.2-15.2); White Blood Count 4.4 K/mm3 (4.5-11.0)
[2017-03-10 06:27] LABS: BUN/Creatinine Ratio 7.66; Calcium 8.1 mg/dL (8.4-10.2); Chloride 94.4 mmol/L (98-107); Potassium 4.4 mmol/L (3.6-5.0)
[2017-03-10] MEDS ORDERED: LONITEN PO SCH (08:14)
[2017-03-10] MEDS: NOVOLOG SUB-Q SCH ×4 (08:15→22:50)
--- NOTE | 2017-03-10 08:19 | Progress Note ---
Assessment and Plan Assessment: * End stage renal disease on HD (outpatient MWF schedule) * DKA * Hyperkalemia - resolved * GI bleed * Hypertension Plan: * Resume outpatient dialysis MWF schedule today * GI following - no EGD at this time * Epogen for goal Hb 10-12 * Tight glycemic control per primary team * Continue antiHTN medications * Nutrition per primary team - currently on TF via NGT; ?PEG prior to d/c to SNF Subjective Date of service: 03/10/17 Principal diagnosis: DKA; hematemesis Interval history: No acute events overnight. Objective - Vital Signs Vital signs: Vital Signs - 12hr 03/10/17 03/10/17 03/10/17 00:55 06:18 07:15 Temperature 97.4 F L 97.9 F 97.9 F Pulse Rate [ 63 65 62 Left Dorsalis Pedis] Respiratory 20 20 12 Rate Blood Pressure 165/81 185/88 179/83 [Left Arm] O2 Sat by Pulse 96 98 100 Oximetry - General Appearance General appearance: well-developed EENT: ATNC, other (NGT in place) Respiratory: Present: Clear to Ascultation Cardiology: regular, S1S2 Gastrointestinal: normal, no tenderness, no distended Integumentary: no rash Neurologic: no focal deficit Psychiatric: cooperative - Lab 03/10/17 05:24 03/10/17 05:24 Most recent lab results Calcium 8.1 mg/dL (8.4-10.2) L 03/10/17 05:24 Phosphorus 4.40 mg/dL (2.5-4.5) D 03/07/17 03:45 Magnesium 1.80 mg/dL (1.7-2.3) 03/09/17 04:13
[2017-03-10] MEDS ORDERED: TYLENOL PO PRN (09:45)
[2017-03-10] MEDS ORDERED: NACL 0.9 (PRIMING MACHINE ONLY DIALYSIS) MC ONE (13:48)
--- NOTE | 2017-03-10 14:17 | Progress Note ---
Assessment and Plan Assessment and plan: DKA - Managed according to DKA protocol and resolved Diabetes mellitus type 2 - Insulin sliding scale insulin - We'll manage his insulin as needed End-stage and is on hemodialysis - Nephrology is following - He will get his hemodialysis as scheduled Hyperkalemia - Resolved Lactic acidosis - Blood cultures are negative and antibiotics are discontinued - Resolved Hematemesis - No bleeding after admission - GI consulted - Recommend H2 rico, monitor H&H, no EGD unless the patient has overt bleeding Metabolic encephalopathy - Baseline Hypertension - Uncontrolled - Continue the current medications and dialysis - I'll titrate up the hydralazine DVT prophylaxis - SCD because of his GI bleed Disposition - Pending shelter placement after speech therapy evaluation . History Interval history: Patient was seen and evaluated this morning, patient is demented. Patient is not in pain or distress. Hospitalist Physical - Physical exam Narrative exam: Not in cardiopulmonary distress. The patient appeared well nourished and normally developed. Vital signs as documented. Head exam is unremarkable. No scleral icterus . Neck is without jugular venous distension, thyromegaly, or carotid bruits. Lungs are clear to auscultation. Cardiac exam reveals regular rate and Rhythm. Abdominal exam reveals normal bowel sounds, no masses, no organomegaly and no aortic enlargement. Extremities are nonedematous and both femoral and pedal pulses are normal. FORGE OPERATOR: Demented. - Constitutional Vitals: Temp Pulse Resp BP Pulse Ox 97.7 F 75 20 161/81 100 03/10/17 10:55 03/10/17 13:00 03/10/17 10:55 03/10/17 13:00 03/10/17 07:15 General appearance: Present: mild distress, cachectic, other (minimally communicative) Results - Labs CBC & Chem 7: 03/10/17 05:24 03/10/17 05:24 Labs: Laboratory Last Values WBC 4.4 K/mm3 (4.5-11.0) L 03/10/17 05:24 RBC 3.59 M/mm3 (3.65-5.03) L 03/10/17 05:24 Hgb 10.8 gm/dl (11.8-15.2) L 03/10/17 05:24 Hct 33.6 % (35.5-45.6) L 03/10/17 05:24 MCV 94 fl (84-94) 03/10/17 05:24 MCH 30 pg (28-32) 03/10/17 05:24 MCHC 32 % (32-34) 03/10/17 05:24 RDW 16.8 % (13.2-15.2) H 03/10/17 05:24 Plt Count 214 K/mm3 (140-440) 03/10/17 05:24 Lymph % (Auto) 16.3 % (13.4-35.0) 03/10/17 05:24 [place] % (Auto) 11.9 % (0.0-7.3) H 03/10/17 05:24 Eos % (Auto) 4.6 % (0.0-4.3) H 03/10/17 05:24 Baso % (Auto) 0.9 % (0.0-1.8) 03/10/17 05:24 Lymph # 0.7 K/mm3 (1.2-5.4) L 03/10/17 05:24 [place] # 0.5 K/mm3 (0.0-0.8) 03/10/17 05:24 Eos # 0.2 K/mm3 (0.0-0.4) 03/10/17 05:24 Baso # 0.0 K/mm3 (0.0-0.1) 03/10/17 05:24 Add Manual Diff Complete 03/07/17 03:45 Total Counted 100 03/07/17 03:45 Seg Neutrophils % 66.3 % (40.0-70.0) 03/10/17 05:24 Seg Neuts % (Manual) 79.0 % (40.0-70.0) H 03/07/17 03:45 Band Neutrophils % 8.0 % 03/07/17 03:45 Lymphocytes % (Manual) 5.0 % (13.4-35.0) L 03/07/17 03:45 Reactive Lymphs % (Man) 0 % 03/07/17 03:45 Monocytes % (Manual) 8.0 % (0.0-7.3) H 03/07/17 03:45 Eosinophils % (Manual) 0 % (0.0-4.3) 03/07/17 03:45 Basophils % (Manual) 0 % (0.0-1.8) 03/07/17 03:45 Metamyelocytes % 0 % 03/07/17 03:45 Myelocytes % 0 % 03/07/17 03:45 Promyelocytes % 0 % 03/07/17 03:45 Blast Cells % 0 % 03/07/17 03:45 Nucleated RBC % Not Reportable 03/07/17 03:45 Seg Neutrophils # 2.9 K/mm3 (1.8-7.7) 03/10/17 05:24 Seg Neutrophils # Man 6.9 K/mm3 (1.8-7.7) 03/07/17 03:45 Band Neutrophils # 0.7 K/mm3 03/07/17 03:45 Lymphocytes # (Manual) 0.4 K/mm3 (1.2-5.4) L 03/07/17 03:45 Abs React Lymphs (Man) 0.0 K/mm3 03/07/17 03:45 Monocytes # (Manual) 0.7 K/mm3 (0.0-0.8) 03/07/17 03:45 Eosinophils # (Manual) 0.0 K/mm3 (0.0-0.4) 03/07/17 03:45 Basophils # (Manual) 0.0 K/mm3 (0.0-0.1) 03/07/17 03:45 Metamyelocytes # 0.0 K/mm3 03/07/17 03:45 Myelocytes # 0.0 K/mm3 03/07/17 03:45 Promyelocytes # 0.0 K/mm3 03/07/17 03:45 Blast Cells # 0.0 K/mm3 03/07/17 03:45 WBC Morphology Not Reportable 03/07/17 03:45 Hypersegmented Neuts Not Reportable 03/07/17 03:45 Hyposegmented Neuts Not Reportable 03/07/17 03:45 Hypogranular Neuts Not Reportable 03/07/17 03:45 Smudge Cells Not Reportable 03/07/17 03:45 Toxic Granulation Not Reportable 03/07/17 03:45 Toxic Vacuolation Not Reportable 03/07/17 03:45 Dohle Bodies Not Reportable 03/07/17 03:45 Pelger-Huet Anomaly Not Reportable 03/07/17 03:45 Jose Rods Not Reportable 03/07/17 03:45 Platelet Estimate Consistent w auto 03/07/17 03:45 Clumped Platelets Not Reportable 03/07/17 03:45 Plt Clumps, EDTA Not Reportable 03/07/17 03:45 Large Platelets Not Reportable 03/07/17 03:45 Giant Platelets Not Reportable 03/07/17 03:45 Platelet Satelliting Not Reportable 03/07/17 03:45 Plt Morphology Comment Not Reportable 03/07/17 03:45 RBC Morphology Normal 03/07/17 03:45 Dimorphic RBCs Not Reportable 03/07/17 03:45 Polychromasia Not Reportable 03/07/17 03:45 Hypochromasia Not Reportable 03/07/17 03:45 Poikilocytosis Not Reportable 03/07/17 03:45 Anisocytosis Not Reportable 03/07/17 03:45 Microcytosis Not Reportable 03/07/17 03:45 Macrocytosis Not Reportable 03/07/17 03:45 Spherocytes Not Reportable 03/07/17 03:45 Pappenheimer Bodies Not Reportable 03/07/17 03:45 Sickle Cells Not Reportable 03/07/17 03:45 Target Cells Not Reportable 03/07/17 03:45 Tear Drop Cells Not Reportable 03/07/17 03:45 Ovalocytes Not Reportable 03/07/17 03:45 Helmet Cells Not Reportable 03/07/17 03:45 Bower-Pelham Bodies Not Reportable 03/07/17 03:45 Seminary Rings Not Reportable 03/07/17 03:45 [place] Cells Not Reportable 03/07/17 03:45 Bite Cells Not Reportable 03/07/17 03:45 Crenated Cell Not Reportable 03/07/17 03:45 Elliptocytes Not Reportable 03/07/17 03:45 Acanthocytes (Spur) Not Reportable 03/07/17 03:45 Rouleaux Not Reportable 03/07/17 03:45 Hemoglobin C Crystals Not Reportable 03/07/17 03:45 Schistocytes Not Reportable 03/07/17 03:45 Malaria parasites Not Reportable 03/07/17 03:45 [place] Bodies Not Reportable 03/07/17 03:45 Hem Pathologist Commnt No 03/07/17 03:45 PT 15.2 Sec. (12.2-14.9) H 03/06/17 05:35 INR 1.14 (0.87-1.13) H 03/06/17 05:35 APTT 41.5 Sec. (24.2-36.6) H 03/06/17 05:35 POC ABG pH 7.300 (7.35-7.45) L 03/06/17 13:12 POC ABG pCO2 40.0 (35-45) 03/06/17 13:12 POC ABG pO2 83 (80-105) 03/06/17 13:12 POC ABG HCO3 19.7 03/06/17 13:12 POC ABG Total CO2 21 03/06/17 13:12 POC ABG O2 Sat 95 03/06/17 13:12 POC ABG Base Excess -7 03/06/17 13:12 FiO2 28 % 03/06/17 13:12 Sodium 138 mmol/L (137-145) 03/10/17 05:24 Potassium 4.4 mmol/L (3.6-5.0) 03/10/17 05:24 Chloride 94.4 mmol/L (98-107) L 03/10/17 05:24 Carbon Dioxide 30 mmol/L (22-30) 03/10/17 05:24 Anion Gap 18 mmol/L 03/10/17 05:24 BUN 46 mg/dL (9-20) H 03/10/17 05:24 Creatinine 6.0 mg/dL (0.8-1.5) H 03/10/17 05:24 Estimated GFR 12 ml/min 03/10/17 05:24 BUN/Creatinine Ratio 7.66 % 03/10/17 05:24 Glucose 76 mg/dL (75-100) 03/10/17 05:24 POC Glucose 155 (70-105) H 03/10/17 07:50 Hemoglobin A1c 10.1 % (4-6) H 03/06/17 05:35 Osmolality 373 Mosm/kg 03/06/17 08:04 Lactic Acid 1.30 mmol/L (0.7-2.0) 03/08/17 15:30 Calcium 8.1 mg/dL (8.4-10.2) L 03/10/17 05:24 Phosphorus 4.40 mg/dL (2.5-4.5) D 03/07/17 03:45 Magnesium 1.80 mg/dL (1.7-2.3) 03/09/17 04:13 Total Bilirubin 0.40 mg/dL (0.1-1.2) 03/06/17 05:35 AST 12 units/L (5-40) 03/06/17 05:35 ALT 11 units/L (7-56) 03/06/17 05:35 Alkaline Phosphatase 144 units/L (35-129) H 03/06/17 05:35 C-Reactive Protein 11.40 mg/dL (0.00-1.30) H 03/07/17 Unknown Total Protein 7.5 g/dL (6.3-8.2) 03/06/17 05:35 Albumin 3.9 g/dL (3.9-5) 03/06/17 05:35 Albumin/Globulin Ratio 1.1 % 03/06/17 05:35 Triglycerides 162 mg/dL (2-149) H 03/06/17 10:09 Cholesterol 159 mg/dL (50-199) 03/06/17 10:09 LDL Cholesterol Direct 77 mg/dL (50-130) 03/06/17 10:09 HDL Cholesterol 50 mg/dL (40-59) 03/06/17 10:09 Cholesterol/HDL Ratio 3.18 % 03/06/17 10:09 Lipase 42 units/L (13-60) 03/06/17 05:35 Blood Type O POSITIVE 03/06/17 05:45 Antibody Screen TNR 03/06/17 05:45 BALDEV Antibody Screen Negative 03/06/17 05:45
[2017-03-10] MEDS: LOPRESSOR PO SCH (15:54)
[2017-03-10] MEDS: LEVEMIR SUB-Q SCH (15:54)
[2017-03-10] MEDS: HEPARIN SUB-Q SCH ×2 (18:48→22:50)
[2017-03-10] MEDS: APRESOLINE IV PRN (19:55)
--- NOTE | 2017-03-10 22:38 | Progress Note ---
Assessment and Plan No complaint of chest apin or shortness of breath.O2 saturation 97% on room air. DKA improved. - Patient Problems (1) DKA (diabetic ketoacidoses) Current Visit: Yes Status: Acute Qualifiers: Diabetes mellitus type: D Diabetes mellitus complication detail: D Plan to address problem: Improved. Patient is on S/C Insulinn. Management as per primary care. (2) Acute on chronic kidney failure Current Visit: Yes Status: Acute Qualifiers: Acute renal failure type: A Chronic kidney disease stage: C Plan to address problem: Management as per nephrology. (3) Dehydration Current Visit: Yes Status: Acute Plan to address problem: Continue NSS at 100 ml?Hr. (4) Acute encephalopathy Current Visit: Yes Status: Acute Plan to address problem: Appears slightly improved. (5) Shortness of breath Current Visit: Yes Status: Acute Plan to address problem: Improved. O2 saturation 07% on room air. Shortness of breath likely from DKA and metabolic acidosis. Subjective Date of service: 03/10/17 Principal diagnosis: DKA; hematemesis Interval history: No complaint of chest apin or shortness of breath.O2 saturation 97% on room air. DKA improved. Objective Vital Signs - 12hr 03/10/17 03/10/17 03/10/17 10:55 11:00 11:15 Temperature 97.7 F Pulse Rate 63 64 68 Pulse Rate [ Left Dorsalis Pedis] Respiratory 20 Rate Blood Pressure 174/83 167/86 160/85 Blood Pressure [Left Arm] O2 Sat by Pulse Oximetry 03/10/17 03/10/17 03/10/17 11:30 11:45 12:00 Temperature Pulse Rate 65 72 70 Pulse Rate [ Left Dorsalis Pedis] Respiratory Rate Blood Pressure 171/81 168/85 170/82 Blood Pressure [Left Arm] O2 Sat by Pulse Oximetry 03/10/17 03/10/17 03/10/17 12:15 12:30 12:45 Temperature Pulse Rate 71 77 80 Pulse Rate [ Left Dorsalis Pedis] Respiratory Rate Blood Pressure 154/83 172/75 163/82 Blood Pressure [Left Arm] O2 Sat by Pulse Oximetry 03/10/17 03/10/17 03/10/17 13:00 13:15 13:30 Temperature Pulse Rate 75 76 72 Pulse Rate [ Left Dorsalis Pedis] Respiratory Rate Blood Pressure 161/81 160/82 168/72 Blood Pressure [Left Arm] O2 Sat by Pulse Oximetry 03/10/17 03/10/17 03/10/17 13:45 14:00 14:15 Temperature Pulse Rate 74 76 78 Pulse Rate [ Left Dorsalis Pedis] Respiratory Rate Blood Pressure 169/74 172/81 170/78 Blood Pressure [Left Arm] O2 Sat by Pulse Oximetry 03/10/17 03/10/17 03/10/17 14:30 15:42 15:50 Temperature 98.4 F 98.4 F Pulse Rate 77 Pulse Rate [ 72 Left Dorsalis Pedis] Respiratory 20 18 20 Rate Blood Pressure 171/77 Blood Pressure 165/76 [Left Arm] O2 Sat by Pulse Oximetry 03/10/17 19:00 Temperature 98.7 F Pulse Rate Pulse Rate [ 68 Left Dorsalis Pedis] Respiratory 20 Rate Blood Pressure Blood Pressure 192/89 [Left Arm] O2 Sat by Pulse 97 Oximetry Constitutional: no acute distress, other (somnolent) Eyes: non-icteric ENT: oropharynx moist Neck: supple, no lymphadenopathy Effort: normal, mildly labored Ascultation: Bilateral: diminished breath sounds, rales (scant in bases) Cardiovascular: regular rate and rhythm Gastrointestinal: normoactive bowel sounds, soft, non-tender, non-distended Integumentary: normal Extremities: no cyanosis, no edema, pulses normal, no ischemia or petechiae, other (chronic lichenification changes to skin in lower extremities) Neurologic: pupils equal and round, other (Post prior CVA hemiparesis) Psychiatric: other (unable to assess) CBC and BMP: 03/10/17 05:24 03/10/17 05:24 ABG, PT/INR, D-dimer: ABG POC ABG pH 7.300 (7.35-7.45) L 03/06/17 13:12 POC ABG pCO2 40.0 (35-45) 03/06/17 13:12 POC ABG pO2 83 (80-105) 03/06/17 13:12 POC ABG HCO3 19.7 03/06/17 13:12 POC ABG Total CO2 21 03/06/17 13:12 POC ABG O2 Sat 95 03/06/17 13:12 PT/INR, D-dimer PT 15.2 Sec. (12.2-14.9) H 03/06/17 05:35 INR 1.14 (0.87-1.13) H 03/06/17 05:35 Abnormal lab findings: Abnormal Labs 03/06/17 03/06/17 03/06/17 12:23 13:03 13:12 WBC RBC Hgb Hct RDW Lymph % (Auto) Roberts % (Auto) Eos % (Auto) Lymph # Seg Neutrophils % Seg Neuts % (Manual) Lymphocytes % (Manual) Monocytes % (Manual) Lymphocytes # (Manual) POC ABG pH 7.300 L Sodium 133 L 132 L Potassium 6.2 H* D Chloride 86.1 L 87.9 L Carbon Dioxide 15 L 16 L BUN 83 H 84 H Creatinine 9.1 H 9.1 H Glucose 820 H* 730 H* POC Glucose Lactic Acid Calcium 8.3 L 8.0 L Magnesium C-Reactive Protein 03/06/17 03/06/17 03/06/17 15:30 16:40 17:46 WBC RBC Hgb Hct RDW Lymph % (Auto) Roberts % (Auto) Eos % (Auto) Lymph # Seg Neutrophils % Seg Neuts % (Manual) Lymphocytes % (Manual) Monocytes % (Manual) Lymphocytes # (Manual) POC ABG pH Sodium 136 L Potassium Chloride 90.2 L Carbon Dioxide 20 L BUN 84 H Creatinine 9.0 H Glucose 571 H* POC Glucose 413 H 332 H Lactic Acid Calcium 8.3 L Magnesium C-Reactive Protein 03/06/17 03/06/17 03/06/17 18:42 19:33 23:20 WBC RBC Hgb Hct RDW Lymph % (Auto) [place] % (Auto) Eos % (Auto) Lymph # Seg Neutrophils % Seg Neuts % (Manual) Lymphocytes % (Manual) Monocytes % (Manual) Lymphocytes # (Manual) POC ABG pH Sodium Potassium Chloride Carbon Dioxide BUN Creatinine Glucose POC Glucose 222 H 142 H 148 H Lactic Acid Calcium Magnesium C-Reactive Protein 03/07/17 03/07/17 03/07/17 00:05 00:58 02:05 WBC RBC Hgb Hct RDW Lymph % (Auto) Roberts % (Auto) Eos % (Auto) Lymph # Seg Neutrophils % Seg Neuts % (Manual) Lymphocytes % (Manual) Monocytes % (Manual) Lymphocytes # (Manual) POC ABG pH Sodium Potassium Chloride Carbon Dioxide BUN Creatinine Glucose POC Glucose 205 H 259 H 255 H Lactic Acid Calcium Magnesium C-Reactive Protein 03/07/17 03/07/17 03/07/17 02:45 03:45 03:45 WBC RBC Hgb Hct RDW 16.7 H Lymph % (Auto) Roberts % (Auto) Eos % (Auto) Lymph # Seg Neutrophils % Seg Neuts % (Manual) 79.0 H Lymphocytes % (Manual) 5.0 L Monocytes % (Manual) 8.0 H Lymphocytes # (Manual) 0.4 L POC ABG pH Sodium Potassium Chloride 95.3 L Carbon Dioxide BUN 41 H Creatinine 5.3 H Glucose 179 H POC Glucose Lactic Acid 2.60 H* Calcium Magnesium C-Reactive Protein 03/07/17 03/07/17 03/07/17 03:45 03:53 05:09 WBC RBC Hgb Hct RDW Lymph % (Auto) [place] % (Auto) Eos % (Auto) Lymph # Seg Neutrophils % Seg Neuts % (Manual) Lymphocytes % (Manual) Monocytes % (Manual) Lymphocytes # (Manual) POC ABG pH Sodium Potassium Chloride Carbon Dioxide BUN Creatinine Glucose POC Glucose 187 H 130 H Lactic Acid Calcium Magnesium 1.60 L C-Reactive Protein 03/07/17 03/07/17 03/07/17 07:54 10:05 10:29 WBC RBC Hgb Hct RDW Lymph % (Auto) Roberts % (Auto) Eos % (Auto) Lymph # Seg Neutrophils % Seg Neuts % (Manual) Lymphocytes % (Manual) Monocytes % (Manual) Lymphocytes # (Manual) POC ABG pH Sodium Potassium Chloride 94.0 L Carbon Dioxide BUN 45 H Creatinine 6.3 H Glucose 206 H POC Glucose 120 H 126 H Lactic Acid Calcium Magnesium C-Reactive Protein 03/07/17 03/07/17 03/07/17 13:02 16:46 21:57 WBC RBC Hgb Hct RDW Lymph % (Auto) Roberts % (Auto) Eos % (Auto) Lymph # Seg Neutrophils % Seg Neuts % (Manual) Lymphocytes % (Manual) Monocytes % (Manual) Lymphocytes # (Manual) POC ABG pH Sodium Potassium Chloride Carbon Dioxide BUN Creatinine Glucose POC Glucose 147 H 216 H 146 H Lactic Acid Calcium Magnesium C-Reactive Protein 03/07/17 03/08/17 03/08/17 Unknown 00:08 10:55 WBC RBC Hgb Hct RDW Lymph % (Auto) [place] % (Auto) Eos % (Auto) Lymph # Seg Neutrophils % Seg Neuts % (Manual) Lymphocytes % (Manual) Monocytes % (Manual) Lymphocytes # (Manual) POC ABG pH Sodium Potassium Chloride Carbon Dioxide BUN Creatinine Glucose POC Glucose 132 H 323 H Lactic Acid Calcium Magnesium C-Reactive Protein 11.40 H 03/08/17 03/08/17 03/08/17 15:30 15:30 19:36 WBC RBC 3.39 L Hgb 10.4 L Hct 31.5 L RDW 17.0 H Lymph % (Auto) 12.4 L Roberts % (Auto) Eos % (Auto) Lymph # 0.6 L Seg Neutrophils % 79.3 H Seg Neuts % (Manual) Lymphocytes % (Manual) Monocytes % (Manual) Lymphocytes # (Manual) POC ABG pH Sodium 136 L Potassium Chloride 93.4 L Carbon Dioxide BUN 45 H Creatinine 5.4 H Glucose 216 H POC Glucose 173 H Lactic Acid Calcium 8.3 L Magnesium C-Reactive Protein 03/08/17 03/09/17 03/09/17 23:49 04:13 04:13 WBC 4.2 L RBC Hgb 11.7 L Hct RDW 17.3 H Lymph % (Auto) Roberts % (Auto) 10.5 H Eos % (Auto) Lymph # 0.6 L Seg Neutrophils % 73.5 H Seg Neuts % (Manual) Lymphocytes % (Manual) Monocytes % (Manual) Lymphocytes # (Manual) POC ABG pH Sodium 136 L Potassium Chloride 93.7 L Carbon Dioxide 31 H BUN 31 H Creatinine 4.7 H Glucose 158 H POC Glucose 259 H Lactic Acid Calcium Magnesium C-Reactive Protein 03/09/17 03/09/17 03/09/17 11:06 17:32 22:21 WBC RBC Hgb Hct RDW Lymph % (Auto) Roberts % (Auto) Eos % (Auto) Lymph # Seg Neutrophils % Seg Neuts % (Manual) Lymphocytes % (Manual) Monocytes % (Manual) Lymphocytes # (Manual) POC ABG pH Sodium Potassium Chloride Carbon Dioxide BUN Creatinine Glucose POC Glucose 314 H 170 H < 40 L Lactic Acid Calcium Magnesium C-Reactive Protein 03/10/17 03/10/17 03/10/17 05:24 05:24 07:50 WBC 4.4 L RBC 3.59 L Hgb 10.8 L Hct 33.6 L RDW 16.8 H Lymph % (Auto) Roberts % (Auto) 11.9 H Eos % (Auto) 4.6 H Lymph # 0.7 L Seg Neutrophils % Seg Neuts % (Manual) Lymphocytes % (Manual) Monocytes % (Manual) Lymphocytes # (Manual) POC ABG pH Sodium Potassium Chloride 94.4 L Carbon Dioxide BUN 46 H Creatinine 6.0 H Glucose POC Glucose 155 H Lactic Acid Calcium 8.1 L Magnesium C-Reactive Protein 03/10/17 03/10/17 16:22 21:51 WBC RBC Hgb Hct RDW Lymph % (Auto) Roberts % (Auto) Eos % (Auto) Lymph # Seg Neutrophils % Seg Neuts % (Manual) Lymphocytes % (Manual) Monocytes % (Manual) Lymphocytes # (Manual) POC ABG pH Sodium Potassium Chloride Carbon Dioxide BUN Creatinine Glucose POC Glucose 354 H 442 H Lactic Acid Calcium Magnesium C-Reactive Protein Chest x-ray: report reviewed (No acute cardiopulmonary process.)
--- NOTE | 2017-03-11 00:53 | XRay Report ---
FINAL REPORT PROCEDURE: XR ABDOMEN 1V AP TECHNIQUE: Abdominal radiograph, single supine AP view. HISTORY: verify dobhoff placement COMPARISON: 03/08/2017 FINDINGS: Bowel gas pattern:Nonobstructive. Masses or calcifications:None. Bony structures:No significant abnormality. Other:The feeding tube ends in the mid stomach. IMPRESSION: The feeding tube ends in the mid stomach
[2017-03-11] MEDS: COMBIGAN 0.2-0.5% OD SCH ×3 (00:54→21:14)
[2017-03-11] MEDS: PEPCID PO SCH ×2 (00:56→10:48)
[2017-03-11] MEDS: COZAAR PO SCH ×2 (00:56→10:49)
[2017-03-11] MEDS: XALATAN 0.005% OD SCH ×2 (00:56→18:56)
[2017-03-11] MEDS: NORVASC PO SCH ×2 (00:56→10:48)
[2017-03-11] MEDS: LOPRESSOR PO SCH ×3 (00:57→21:15)
[2017-03-11] MEDS: REMERON PO SCH ×2 (00:57→21:14)
[2017-03-11 05:32] LABS: Hemoglobin 11.1 gm/dl (11.8-15.2); Mean Corpuscular HGB Conc 32 % (32-34); Mean Corpuscular Hemoglobin 30 pg (28-32); Mean Corpuscular Volume 93 fl (84-94); Platelet Count 217 K/mm3 (140-440); Red Blood Count 3.75 M/mm3 (3.65-5.03); Red Cell Distribution Width 16.8 % (13.2-15.2); White Blood Count 3.3 K/mm3 (4.5-11.0)
[2017-03-11 05:48] LABS: BUN/Creatinine Ratio 7.17; Calcium 8.2 mg/dL (8.4-10.2); Chloride 91.5 mmol/L (98-107); Potassium 4.1 mmol/L (3.6-5.0)
[2017-03-11] MEDS: APRESOLINE IV PRN (06:27)
[2017-03-11 07:30] LABS: Basophils % (Manual) 0 % (0.0-1.8); Blastocytes % (Manual) 0 %
[2017-03-11 07:33] LABS: Diff Status Complete; Platelet Estimate Consistent w Auto
[2017-03-11] MEDS: NOVOLOG SUB-Q SCH ×4 (08:49→21:50)
[2017-03-11] MEDS: LONITEN PO SCH (10:47)
[2017-03-11] MEDS: LEVEMIR SUB-Q SCH (10:48)
[2017-03-11] MEDS: HEPARIN SUB-Q SCH ×2 (10:48→21:14)
--- NOTE | 2017-03-11 12:43 | Progress Note ---
Assessment and Plan Assessment: * End stage renal disease on HD (outpatient MWF schedule) * DKA * Hyperkalemia - resolved * GI bleed * Hypertension Plan: * Continue MWF hemodialysis schedule * UF as tolerated * Epogen for goal Hb 10-12 * Tight glycemic control per primary team * Continue antiHTN medications * Note ST recommendation of PEG Subjective Date of service: 03/11/17 Principal diagnosis: DKA; hematemesis Interval history: No acute events Objective - Vital Signs Vital signs: Vital Signs - 12hr 03/11/17 03/11/17 05:42 07:30 Temperature 98.1 F 97.7 F Pulse Rate [ 66 91 H Left Dorsalis Pedis] Respiratory 19 20 Rate Blood Pressure 185/88 142/66 [Left Arm] O2 Sat by Pulse 99 99 Oximetry - General Appearance General appearance: well-developed EENT: ATNC Respiratory: Present: Clear to Ascultation Cardiology: regular, S1S2 Gastrointestinal: normal, no tenderness, no distended Integumentary: no rash Musculoskeletal: other (no edema) Psychiatric: cooperative - Lab 03/11/17 04:35 03/11/17 04:35 Most recent lab results Calcium 8.2 mg/dL (8.4-10.2) L 03/11/17 04:35 Phosphorus 4.40 mg/dL (2.5-4.5) D 03/07/17 03:45 Magnesium 1.80 mg/dL (1.7-2.3) 03/09/17 04:13
--- NOTE | 2017-03-11 14:27 | Progress Note ---
Assessment and Plan Assessment and plan: DKA - Managed according to DKA protocol and resolved Diabetes mellitus type 2 - Insulin sliding scale insulin - We'll manage his insulin as needed End-stage and is on hemodialysis - Nephrology is following - He will get his hemodialysis as scheduled Hyperkalemia - Resolved Lactic acidosis - Blood cultures are negative and antibiotics are discontinued - Resolved Hematemesis - No bleeding after admission - GI consulted - Recommend H2 rico, monitor H&H, no EGD unless the patient has overt bleeding Speech evaluated him and not a candidate for PO feeding - Reconsult GI for PEG placement Metabolic encephalopathy - Baseline Hypertension - Uncontrolled - Continue the current medications and dialysis - I'll titrate up the hydralazine DVT prophylaxis - SCD because of his GI bleed Disposition - Pending shelter placement after PEG placement. History Interval history: Patient was seen and evaluated this morning, Patient is not in pain or distress. Hospitalist Physical - Physical exam Narrative exam: Not in cardiopulmonary distress. The patient appeared well nourished and normally developed. Vital signs as documented. Head exam is unremarkable. No scleral icterus . Neck is without jugular venous distension, thyromegaly, or carotid bruits. Lungs are clear to auscultation. Cardiac exam reveals regular rate and Rhythm. Abdominal exam reveals normal bowel sounds, no masses, no organomegaly and no aortic enlargement. Extremities are nonedematous and both femoral and pedal pulses are normal. [employer] WORK[employer]: Demented. - Constitutional Vitals: Temp Pulse Resp BP Pulse Ox 97.7 F 91 H 20 142/66 99 03/11/17 07:30 03/11/17 07:30 03/11/17 07:30 03/11/17 07:30 03/11/17 07:30 General appearance: Present: mild distress, cachectic, other (minimally communicative) Results - Labs CBC & Chem 7: 03/11/17 04:35 03/11/17 04:35 Labs: Laboratory Last Values WBC 3.3 K/mm3 (4.5-11.0) L 03/11/17 04:35 RBC 3.75 M/mm3 (3.65-5.03) 03/11/17 04:35 Hgb 11.1 gm/dl (11.8-15.2) L 03/11/17 04:35 Hct 35.0 % (35.5-45.6) L 03/11/17 04:35 MCV 93 fl (84-94) 03/11/17 04:35 MCH 30 pg (28-32) 03/11/17 04:35 MCHC 32 % (32-34) 03/11/17 04:35 RDW 16.8 % (13.2-15.2) H 03/11/17 04:35 Plt Count 217 K/mm3 (140-440) 03/11/17 04:35 Lymph % (Auto) 16.3 % (13.4-35.0) 03/10/17 05:24 [place] % (Auto) Vocational Rehabilitation Supervisor 03/11/17 04:35 Eos % (Auto) 4.6 % (0.0-4.3) H 03/10/17 05:24 Baso % (Auto) 0.9 % (0.0-1.8) 03/10/17 05:24 Lymph # 0.7 K/mm3 (1.2-5.4) L 03/10/17 05:24 [place] # 0.5 K/mm3 (0.0-0.8) 03/10/17 05:24 Eos # 0.2 K/mm3 (0.0-0.4) 03/10/17 05:24 Baso # 0.0 K/mm3 (0.0-0.1) 03/10/17 05:24 Add Manual Diff Complete 03/11/17 04:35 Total Counted 100 03/11/17 04:35 Seg Neutrophils % 66.3 % (40.0-70.0) 03/10/17 05:24 Seg Neuts % (Manual) 73.0 % (40.0-70.0) H 03/11/17 04:35 Band Neutrophils % 0 % 03/11/17 04:35 Lymphocytes % (Manual) 18.0 % (13.4-35.0) 03/11/17 04:35 Reactive Lymphs % (Man) 0 % 03/11/17 04:35 Monocytes % (Manual) 5.0 % (0.0-7.3) 03/11/17 04:35 Eosinophils % (Manual) 4.0 % (0.0-4.3) 03/11/17 04:35 Basophils % (Manual) 0 % (0.0-1.8) 03/11/17 04:35 Metamyelocytes % 0 % 03/11/17 04:35 Myelocytes % 0 % 03/11/17 04:35 Promyelocytes % 0 % 03/11/17 04:35 Blast Cells % 0 % 03/11/17 04:35 Nucleated RBC % Not Reportable 03/11/17 04:35 Seg Neutrophils # 2.9 K/mm3 (1.8-7.7) 03/10/17 05:24 Seg Neutrophils # Man 2.4 K/mm3 (1.8-7.7) 03/11/17 04:35 Band Neutrophils # 0.0 K/mm3 03/11/17 04:35 Lymphocytes # (Manual) 0.6 K/mm3 (1.2-5.4) L 03/11/17 04:35 Abs React Lymphs (Man) 0.0 K/mm3 03/11/17 04:35 Monocytes # (Manual) 0.2 K/mm3 (0.0-0.8) 03/11/17 04:35 Eosinophils # (Manual) 0.1 K/mm3 (0.0-0.4) 03/11/17 04:35 Basophils # (Manual) 0.0 K/mm3 (0.0-0.1) 03/11/17 04:35 Metamyelocytes # 0.0 K/mm3 03/11/17 04:35 Myelocytes # 0.0 K/mm3 03/11/17 04:35 Promyelocytes # 0.0 K/mm3 03/11/17 04:35 Blast Cells # 0.0 K/mm3 03/11/17 04:35 WBC Morphology Not Reportable 03/11/17 04:35 Hypersegmented Neuts Not Reportable 03/11/17 04:35 Hyposegmented Neuts Not Reportable 03/11/17 04:35 Hypogranular Neuts Not Reportable 03/11/17 04:35 Smudge Cells Not Reportable 03/11/17 04:35 Toxic Granulation Not Reportable 03/11/17 04:35 Toxic Vacuolation Not Reportable 03/11/17 04:35 Dohle Bodies Not Reportable 03/11/17 04:35 Pelger-Huet Anomaly Not Reportable 03/11/17 04:35 Jose Rods Not Reportable 03/11/17 04:35 Platelet Estimate Consistent w auto 03/11/17 04:35 Clumped Platelets Not Reportable 03/11/17 04:35 Plt Clumps, EDTA Not Reportable 03/11/17 04:35 Large Platelets Not Reportable 03/11/17 04:35 Giant Platelets Not Reportable 03/11/17 04:35 Platelet Satelliting Not Reportable 03/11/17 04:35 Plt Morphology Comment Not Reportable 03/11/17 04:35 RBC Morphology Not Reportable 03/11/17 04:35 Dimorphic RBCs Not Reportable 03/11/17 04:35 Polychromasia Not Reportable 03/11/17 04:35 Hypochromasia Not Reportable 03/11/17 04:35 Poikilocytosis Not Reportable 03/11/17 04:35 Anisocytosis Not Reportable 03/11/17 04:35 Microcytosis Not Reportable 03/11/17 04:35 Macrocytosis Not Reportable 03/11/17 04:35 Spherocytes Not Reportable 03/11/17 04:35 Pappenheimer Bodies Not Reportable 03/11/17 04:35 Sickle Cells Not Reportable 03/11/17 04:35 Target Cells Not Reportable 03/11/17 04:35 Tear Drop Cells Not Reportable 03/11/17 04:35 Ovalocytes Not Reportable 03/11/17 04:35 Helmet Cells Not Reportable 03/11/17 04:35 Bower-Nebo Bodies Not Reportable 03/11/17 04:35 Simms Rings Not Reportable 03/11/17 04:35 Cyril Cells Not Reportable 03/11/17 04:35 Bite Cells Not Reportable 03/11/17 04:35 Crenated Cell Not Reportable 03/11/17 04:35 Elliptocytes Not Reportable 03/11/17 04:35 Acanthocytes (Spur) Not Reportable 03/11/17 04:35 Rouleaux Not Reportable 03/11/17 04:35 Hemoglobin C Crystals Not Reportable 03/11/17 04:35 Schistocytes Not Reportable 03/11/17 04:35 Malaria parasites Not Reportable 03/11/17 04:35 Cayden Bodies Not Reportable 03/11/17 04:35 Hem Pathologist Commnt No 03/11/17 04:35 PT 15.2 Sec. (12.2-14.9) H 06/29/17 05:35 INR 1.14 (0.87-1.13) H 03/06/17 05:35 APTT 41.5 Sec. (24.2-36.6) H 03/06/17 05:35 POC ABG pH 7.300 (7.35-7.45) L 03/06/17 13:12 POC ABG pCO2 40.0 (35-45) 03/06/17 13:12 POC ABG pO2 83 (80-105) 03/06/17 13:12 POC ABG HCO3 19.7 03/06/17 13:12 POC ABG Total CO2 21 03/06/17 13:12 POC ABG O2 Sat 95 03/06/17 13:12 POC ABG Base Excess -7 03/06/17 13:12 FiO2 28 % 03/06/17 13:12 Sodium 135 mmol/L (137-145) L 03/11/17 04:35 Potassium 4.1 mmol/L (3.6-5.0) 03/11/17 04:35 Chloride 91.5 mmol/L (98-107) L 03/11/17 04:35 Carbon Dioxide 28 mmol/L (22-30) 03/11/17 04:35 Anion Gap 20 mmol/L 03/11/17 04:35 BUN 33 mg/dL (9-20) H 03/11/17 04:35 Creatinine 4.6 mg/dL (0.8-1.5) H 03/11/17 04:35 Estimated GFR 16 ml/min 03/11/17 04:35 BUN/Creatinine Ratio 7.17 % 03/11/17 04:35 Glucose 274 mg/dL (75-100) H 03/11/17 04:35 POC Glucose 356 (70-105) H 03/11/17 13:01 Hemoglobin A1c 10.1 % (4-6) H 03/06/17 05:35 Osmolality 373 Mosm/kg 03/06/17 08:04 Lactic Acid 1.30 mmol/L (0.7-2.0) 03/08/17 15:30 Calcium 8.2 mg/dL (8.4-10.2) L 03/11/17 04:35 Phosphorus 4.40 mg/dL (2.5-4.5) D 03/07/17 03:45 Magnesium 1.80 mg/dL (1.7-2.3) 03/09/17 04:13 Total Bilirubin 0.40 mg/dL (0.1-1.2) 03/06/17 05:35 AST 12 units/L (5-40) 03/06/17 05:35 ALT 11 units/L (7-56) 03/06/17 05:35 Alkaline Phosphatase 144 units/L (35-129) H 03/06/17 05:35 C-Reactive Protein 11.40 mg/dL (0.00-1.30) H 03/07/17 Unknown Total Protein 7.5 g/dL (6.3-8.2) 03/06/17 05:35 Albumin 3.9 g/dL (3.9-5) 03/06/17 05:35 Albumin/Globulin Ratio 1.1 % 03/06/17 05:35 Triglycerides 162 mg/dL (2-149) H 03/06/17 10:09 Cholesterol 159 mg/dL (50-199) 03/06/17 10:09 LDL Cholesterol Direct 77 mg/dL (50-130) 03/06/17 10:09 HDL Cholesterol 50 mg/dL (40-59) 03/06/17 10:09 Cholesterol/HDL Ratio 3.18 % 03/06/17 10:09 Lipase 42 units/L (13-60) 03/06/17 05:35 Blood Type O POSITIVE 03/06/17 05:45 Antibody Screen TNR 03/06/17 05:45 BALDEV Antibody Screen Negative 03/06/17 05:45
--- NOTE | 2017-03-11 16:19 | Progress Note ---
Assessment and Plan Patient sleeping at this time. No acute respiratory distress. O2 saturation 99% on room air. DKA improved. - Patient Problems (1) DKA (diabetic ketoacidoses) Current Visit: Yes Status: Acute Qualifiers: Diabetes mellitus type: D Diabetes mellitus complication detail: D Plan to address problem: Improved. Patient is on S/C Insulinn. Management as per primary care. (2) Acute on chronic kidney failure Current Visit: Yes Status: Acute Qualifiers: Acute renal failure type: A Chronic kidney disease stage: C Plan to address problem: Management as per nephrology. (3) Dehydration Current Visit: Yes Status: Acute Plan to address problem: Continue NSS at 100 mlHr. (4) Acute encephalopathy Current Visit: Yes Status: Acute Plan to address problem: Appears slightly improved. (5) Shortness of breath Current Visit: Yes Status: Acute Plan to address problem: Improved. O2 saturation 99% on room air. Shortness of breath likely from DKA and metabolic acidosis. Subjective Date of service: 03/11/17 Principal diagnosis: DKA; hematemesis Interval history: Patient sleeping at this time. No acute respiratory distress. O2 saturation 99% on room air. DKA improved. Objective Vital Signs - 12hr 03/11/17 03/11/17 05:42 07:30 Temperature 98.1 F 97.7 F Pulse Rate [ 66 91 H Left Dorsalis Pedis] Respiratory 19 20 Rate Blood Pressure 185/88 142/66 [Left Arm] O2 Sat by Pulse 99 99 Oximetry Constitutional: no acute distress, other (somnolent) Eyes: non-icteric ENT: oropharynx moist Neck: supple, no lymphadenopathy Effort: normal, mildly labored Ascultation: Bilateral: diminished breath sounds, rales (scant in bases) Cardiovascular: regular rate and rhythm Gastrointestinal: normoactive bowel sounds, soft, non-tender, non-distended Integumentary: normal Extremities: no cyanosis, no edema, pulses normal, no ischemia or petechiae, other (chronic lichenification changes to skin in lower extremities) Neurologic: pupils equal and round, other (Post prior CVA hemiparesis) Psychiatric: other (unable to assess) CBC and BMP: 03/11/17 04:35 03/11/17 04:35 ABG, PT/INR, D-dimer: ABG POC ABG pH 7.300 (7.35-7.45) L 03/06/17 13:12 POC ABG pCO2 40.0 (35-45) 03/06/17 13:12 POC ABG pO2 83 (80-105) 03/06/17 13:12 POC ABG HCO3 19.7 03/06/17 13:12 POC ABG Total CO2 21 03/06/17 13:12 POC ABG O2 Sat 95 03/06/17 13:12 PT/INR, D-dimer PT 15.2 Sec. (12.2-14.9) H 03/06/17 05:35 INR 1.14 (0.87-1.13) H 03/06/17 05:35 Abnormal lab findings: Abnormal Labs 03/06/17 03/06/17 03/06/17 12:23 13:03 13:12 WBC RBC Hgb Hct RDW Lymph % (Auto) [place] % (Auto) Eos % (Auto) Lymph # Seg Neutrophils % Seg Neuts % (Manual) Lymphocytes % (Manual) Monocytes % (Manual) Lymphocytes # (Manual) POC ABG pH 7.300 L Sodium 133 L 132 L Potassium 6.2 H* D Chloride 86.1 L 87.9 L Carbon Dioxide 15 L 16 L BUN 83 H 84 H Creatinine 9.1 H 9.1 H Glucose 820 H* 730 H* POC Glucose Lactic Acid Calcium 8.3 L 8.0 L Magnesium C-Reactive Protein 03/06/17 03/06/17 03/06/17 15:30 16:40 17:46 WBC RBC Hgb Hct RDW Lymph % (Auto) [place] % (Auto) Eos % (Auto) Lymph # Seg Neutrophils % Seg Neuts % (Manual) Lymphocytes % (Manual) Monocytes % (Manual) Lymphocytes # (Manual) POC ABG pH Sodium 136 L Potassium Chloride 90.2 L Carbon Dioxide 20 L BUN 84 H Creatinine 9.0 H Glucose 571 H* POC Glucose 413 H 332 H Lactic Acid Calcium 8.3 L Magnesium C-Reactive Protein 03/06/17 03/06/17 03/06/17 18:42 19:33 23:20 WBC RBC Hgb Hct RDW Lymph % (Auto) [place] % (Auto) Eos % (Auto) Lymph # Seg Neutrophils % Seg Neuts % (Manual) Lymphocytes % (Manual) Monocytes % (Manual) Lymphocytes # (Manual) POC ABG pH Sodium Potassium Chloride Carbon Dioxide BUN Creatinine Glucose POC Glucose 222 H 142 H 148 H Lactic Acid Calcium Magnesium C-Reactive Protein 03/07/17 03/07/17 03/07/17 00:05 00:58 02:05 WBC RBC Hgb Hct RDW Lymph % (Auto) [place] % (Auto) Eos % (Auto) Lymph # Seg Neutrophils % Seg Neuts % (Manual) Lymphocytes % (Manual) Monocytes % (Manual) Lymphocytes # (Manual) POC ABG pH Sodium Potassium Chloride Carbon Dioxide BUN Creatinine Glucose POC Glucose 205 H 259 H 255 H Lactic Acid Calcium Magnesium C-Reactive Protein 03/07/17 03/07/17 03/07/17 02:45 03:45 03:45 WBC RBC Hgb Hct RDW 16.7 H Lymph % (Auto) [place] % (Auto) Eos % (Auto) Lymph # Seg Neutrophils % Seg Neuts % (Manual) 79.0 H Lymphocytes % (Manual) 5.0 L Monocytes % (Manual) 8.0 H Lymphocytes # (Manual) 0.4 L POC ABG pH Sodium Potassium Chloride 95.3 L Carbon Dioxide BUN 41 H Creatinine 5.3 H Glucose 179 H POC Glucose Lactic Acid 2.60 H* Calcium Magnesium C-Reactive Protein 03/07/17 03/07/17 03/07/17 03:45 03:53 05:09 WBC RBC Hgb Hct RDW Lymph % (Auto) [place] % (Auto) Eos % (Auto) Lymph # Seg Neutrophils % Seg Neuts % (Manual) Lymphocytes % (Manual) Monocytes % (Manual) Lymphocytes # (Manual) POC ABG pH Sodium Potassium Chloride Carbon Dioxide BUN Creatinine Glucose POC Glucose 187 H 130 H Lactic Acid Calcium Magnesium 1.60 L C-Reactive Protein 03/07/17 03/07/17 03/07/17 07:54 10:05 10:29 WBC RBC Hgb Hct RDW Lymph % (Auto) [place] % (Auto) Eos % (Auto) Lymph # Seg Neutrophils % Seg Neuts % (Manual) Lymphocytes % (Manual) Monocytes % (Manual) Lymphocytes # (Manual) POC ABG pH Sodium Potassium Chloride 94.0 L Carbon Dioxide BUN 45 H Creatinine 6.3 H Glucose 206 H POC Glucose 120 H 126 H Lactic Acid Calcium Magnesium C-Reactive Protein 03/07/17 03/07/17 03/07/17 13:02 16:46 21:57 WBC RBC Hgb Hct RDW Lymph % (Auto) [place] % (Auto) Eos % (Auto) Lymph # Seg Neutrophils % Seg Neuts % (Manual) Lymphocytes % (Manual) Monocytes % (Manual) Lymphocytes # (Manual) POC ABG pH Sodium Potassium Chloride Carbon Dioxide BUN Creatinine Glucose POC Glucose 147 H 216 H 146 H Lactic Acid Calcium Magnesium C-Reactive Protein 03/07/17 03/08/17 03/08/17 Unknown 00:08 10:55 WBC RBC Hgb Hct RDW Lymph % (Auto) [place] % (Auto) Eos % (Auto) Lymph # Seg Neutrophils % Seg Neuts % (Manual) Lymphocytes % (Manual) Monocytes % (Manual) Lymphocytes # (Manual) POC ABG pH Sodium Potassium Chloride Carbon Dioxide BUN Creatinine Glucose POC Glucose 132 H 323 H Lactic Acid Calcium Magnesium C-Reactive Protein 11.40 H 03/08/17 03/08/17 03/08/17 15:30 15:30 19:36 WBC RBC 3.39 L Hgb 10.4 L Hct 31.5 L RDW 17.0 H Lymph % (Auto) 12.4 L [place] % (Auto) Eos % (Auto) Lymph # 0.6 L Seg Neutrophils % 79.3 H Seg Neuts % (Manual) Lymphocytes % (Manual) Monocytes % (Manual) Lymphocytes # (Manual) POC ABG pH Sodium 136 L Potassium Chloride 93.4 L Carbon Dioxide BUN 45 H Creatinine 5.4 H Glucose 216 H POC Glucose 173 H Lactic Acid Calcium 8.3 L Magnesium C-Reactive Protein 03/08/17 03/09/17 03/09/17 23:49 04:13 04:13 WBC 4.2 L RBC Hgb 11.7 L Hct RDW 17.3 H Lymph % (Auto) [place] % (Auto) 10.5 H Eos % (Auto) Lymph # 0.6 L Seg Neutrophils % 73.5 H Seg Neuts % (Manual) Lymphocytes % (Manual) Monocytes % (Manual) Lymphocytes # (Manual) POC ABG pH Sodium 136 L Potassium Chloride 93.7 L Carbon Dioxide 31 H BUN 31 H Creatinine 4.7 H Glucose 158 H POC Glucose 259 H Lactic Acid Calcium Magnesium C-Reactive Protein 03/09/17 03/09/17 03/09/17 11:06 17:32 22:21 WBC RBC Hgb Hct RDW Lymph % (Auto) [place] % (Auto) Eos % (Auto) Lymph # Seg Neutrophils % Seg Neuts % (Manual) Lymphocytes % (Manual) Monocytes % (Manual) Lymphocytes # (Manual) POC ABG pH Sodium Potassium Chloride Carbon Dioxide BUN Creatinine Glucose POC Glucose 314 H 170 H < 40 L Lactic Acid Calcium Magnesium C-Reactive Protein 03/10/17 03/10/17 03/10/17 05:24 05:24 07:50 WBC 4.4 L RBC 3.59 L Hgb 10.8 L Hct 33.6 L RDW 16.8 H Lymph % (Auto) [place] % (Auto) 11.9 H Eos % (Auto) 4.6 H Lymph # 0.7 L Seg Neutrophils % Seg Neuts % (Manual) Lymphocytes % (Manual) Monocytes % (Manual) Lymphocytes # (Manual) POC ABG pH Sodium Potassium Chloride 94.4 L Carbon Dioxide BUN 46 H Creatinine 6.0 H Glucose POC Glucose 155 H Lactic Acid Calcium 8.1 L Magnesium C-Reactive Protein 03/10/17 03/10/17 03/11/17 16:22 21:51 04:03 WBC RBC Hgb Hct RDW Lymph % (Auto) [place] % (Auto) Eos % (Auto) Lymph # Seg Neutrophils % Seg Neuts % (Manual) Lymphocytes % (Manual) Monocytes % (Manual) Lymphocytes # (Manual) POC ABG pH Sodium Potassium Chloride Carbon Dioxide BUN Creatinine Glucose POC Glucose 354 H 442 H 292 H Lactic Acid Calcium Magnesium C-Reactive Protein 03/11/17 03/11/17 03/11/17 04:35 04:35 08:16 WBC 3.3 L RBC Hgb 11.1 L Hct 35.0 L RDW 16.8 H Lymph % (Auto) [place] % (Auto) Eos % (Auto) Lymph # Seg Neutrophils % Seg Neuts % (Manual) 73.0 H Lymphocytes % (Manual) Monocytes % (Manual) Lymphocytes # (Manual) 0.6 L POC ABG pH Sodium 135 L Potassium Chloride 91.5 L Carbon Dioxide BUN 33 H Creatinine 4.6 H Glucose 274 H POC Glucose 474 H Lactic Acid Calcium 8.2 L Magnesium C-Reactive Protein 03/11/17 13:01 WBC RBC Hgb Hct RDW Lymph % (Auto) [place] % (Auto) Eos % (Auto) Lymph # Seg Neutrophils % Seg Neuts % (Manual) Lymphocytes % (Manual) Monocytes % (Manual) Lymphocytes # (Manual) POC ABG pH Sodium Potassium Chloride Carbon Dioxide BUN Creatinine Glucose POC Glucose 356 H Lactic Acid Calcium Magnesium C-Reactive Protein
[2017-03-11] MEDS: D50W (25GM) IV PRN (21:49)
[2017-03-12] MEDS: COMBIGAN 0.2-0.5% OD SCH ×3 (03:31→23:37)
[2017-03-12 06:40] LABS: Hematocrit 33.3 % (35.5-45.6); Hemoglobin 10.5 gm/dl (11.8-15.2)
[2017-03-12 07:00] LABS: Calcium 8.2 mg/dL (8.4-10.2); Chloride 94.2 mmol/L (98-107); Potassium 4.4 mmol/L (3.6-5.0)
[2017-03-12] MEDS: NOVOLOG SUB-Q SCH ×4 (07:30→23:37)
--- NOTE | 2017-03-12 08:20 | Progress Note ---
Assessment and Plan Assessment: * End stage renal disease on HD (outpatient MWF schedule) * DKA * Hyperkalemia - resolved * GI bleed * Hypertension Plan: * Continue MWF hemodialysis schedule * UF as tolerated * Epogen for goal Hb 10-12 * Tight glycemic control per primary team * Continue antiHTN medications * Note ST recommendation of PEG Subjective Date of service: 03/12/17 Principal diagnosis: DKA; hematemesis Interval history: Patient seen on dialysis - no acute events Objective - Vital Signs Vital signs: Vital Signs - 12hr 03/11/17 03/12/17 22:00 04:00 Temperature 98.0 F Pulse Rate 70 Pulse Rate [ 81 Left Brachial] Respiratory 20 Rate Blood Pressure 132/68 [Right Arm] O2 Sat by Pulse 97 Oximetry - General Appearance General appearance: well-developed EENT: ATNC Respiratory: Present: Clear to Ascultation Cardiology: regular, S1S2 Gastrointestinal: no tenderness, no distended Integumentary: no rash Neurologic: no focal deficit Musculoskeletal: other (no edema) Psychiatric: cooperative - Lab 03/12/17 05:58 03/12/17 05:58 Most recent lab results Calcium 8.2 mg/dL (8.4-10.2) L 03/12/17 05:58 Phosphorus 4.40 mg/dL (2.5-4.5) D 03/07/17 03:45 Magnesium 1.80 mg/dL (1.7-2.3) 03/09/17 04:13
[2017-03-12] MEDS ORDERED: SODIUM BICARBONATE FEEDTUBE PRN (08:35)
[2017-03-12] MEDS ORDERED: SIMPLE SYRUP FEEDTUBE PRN ×2 (08:35)
--- NOTE | 2017-03-12 08:57 | Gastroenterology Progress Note ---
Assessment and Plan 1. PEG placement 2. hematemesis 3.DKA- improved, on SQ insulin -HGB stable -no active signs of bleeding -continue H2 rico -speech eval 03/10 revealed pt able to swallow but unable to consume enough po intake to maintain adequate nutritional support, PEG placement recommended -will schedule for EGD with PEG placement tomorrow -NPO after MN -hold am dose of heparin -PT/INR in am -will follow Subjective Date of service: 03/12/17 Principal diagnosis: PEG placement Interval history: Patient sitting in bed, no acute distress. Alert and oriented to person and time. Nursing at bedside, states pt with poor po intake for breakfast today. Objective - Constitutional Vitals: Temp Pulse Resp BP Pulse Ox 98.1 F 78 20 170/78 98 03/12/17 07:28 03/12/17 07:28 03/12/17 07:28 03/12/17 07:28 03/12/17 07:28 General appearance: no acute distress - EENT Eyes: EOM intact ENT: hearing intact - Neck Neck: normal ROM - Respiratory Respiratory: bilateral: diminished - Cardiovascular Rhythm: regular Heart Sounds: Present: S1 & S2 - Extremities Extremities: No edema - Gastrointestinal General gastrointestinal: Present: soft, non-tender, non-distended, normal bowel sounds - Integumentary Integumentary: Present: warm, dry - Neurologic Neurological: oriented to person - Labs CBC & Chem 7: 03/12/17 05:58 03/12/17 05:58 Labs: Laboratory Results - last 24 hr 03/11/17 03/11/17 03/11/17 08:16 13:01 21:43 Hgb Hct Sodium Potassium Chloride Carbon Dioxide Anion Gap BUN Creatinine Estimated GFR BUN/Creatinine Ratio Glucose POC Glucose 474 H 356 H 45 L Calcium 03/12/17 03/12/17 03/12/17 00:07 05:58 05:58 Hgb 10.5 L Hct 33.3 L Sodium 138 Potassium 4.4 Chloride 94.2 L Carbon Dioxide 25 Anion Gap 23 BUN 49 H Creatinine 7.0 H D Estimated GFR 10 BUN/Creatinine Ratio 7.00 Glucose 200 H POC Glucose 104 Calcium 8.2 L
[2017-03-12] MEDS ORDERED: NACL 0.9 (PRIMING MACHINE ONLY DIALYSIS) MC ONE (10:51)
--- NOTE | 2017-03-12 11:57 | Progress Note ---
Assessment and Plan Assessment and plan: DKA - Managed according to DKA protocol and resolved Diabetes mellitus type 2 - Insulin sliding scale insulin - We'll manage his insulin as needed End-stage and is on hemodialysis - Nephrology is following - He will get his hemodialysis as schedule Hematemesis - No bleeding after admission - GI consulted - Recommend H2 rico, monitor H&H, no EGD unless the patient has overt bleeding Speech evaluated him and not a candidate for PO feeding - Scheduled to have PEG tomorrow Dementia Hypertension - Controlled - Continue the current medications and dialysis DVT prophylaxis - SCD because of his GI bleed Disposition - Pending assisted placement after PEG placement. History Interval history: Patient was seen and evaluated this morning, Patient is not in pain or distress , he said he doesn't have any problems. He is dementia. Hospitalist Physical - Physical exam Narrative exam: Not in cardiopulmonary distress. The patient appeared well nourished and normally developed. Vital signs as documented. Head exam is unremarkable. No scleral icterus . Neck is without jugular venous distension, thyromegaly, or carotid bruits. Lungs are clear to auscultation. Cardiac exam reveals regular rate and Rhythm. Abdominal exam reveals normal bowel sounds, no masses, no organomegaly and no aortic enlargement. Extremities are nonedematous and both femoral and pedal pulses are normal. [employer] INSPECTOR: Patient has dementia. - Constitutional Vitals: Temp Pulse Resp BP Pulse Ox 98.4 F 88 18 123/64 98 03/12/17 09:50 03/12/17 11:15 03/12/17 09:50 03/12/17 11:15 03/12/17 07:28 General appearance: Present: mild distress, cachectic, other (minimally communicative) Results - Labs CBC & Chem 7: 03/12/17 05:58 03/12/17 05:58 Labs: Laboratory Last Values WBC 3.3 K/mm3 (4.5-11.0) L 03/11/17 04:35 RBC 3.75 M/mm3 (3.65-5.03) 03/11/17 04:35 Hgb 10.5 gm/dl (11.8-15.2) L 03/12/17 05:58 Hct 33.3 % (35.5-45.6) L 03/12/17 05:58 MCV 93 fl (84-94) 03/11/17 04:35 MCH 30 pg (28-32) 03/11/17 04:35 MCHC 32 % (32-34) 03/11/17 04:35 RDW 16.8 % (13.2-15.2) H 03/11/17 04:35 Plt Count 217 K/mm3 (140-440) 03/11/17 04:35 Lymph % (Auto) 16.3 % (13.4-35.0) 03/10/17 05:24 [place] % (Auto) [employer] 03/11/17 04:35 Eos % (Auto) 4.6 % (0.0-4.3) H 03/10/17 05:24 Baso % (Auto) 0.9 % (0.0-1.8) 03/10/17 05:24 Lymph # 0.7 K/mm3 (1.2-5.4) L 03/10/17 05:24 [place] # 0.5 K/mm3 (0.0-0.8) 03/10/17 05:24 Eos # 0.2 K/mm3 (0.0-0.4) 03/10/17 05:24 Baso # 0.0 K/mm3 (0.0-0.1) 03/10/17 05:24 Add Manual Diff Complete 03/11/17 04:35 Total Counted 100 03/11/17 04:35 Seg Neutrophils % 66.3 % (40.0-70.0) 03/10/17 05:24 Seg Neuts % (Manual) 73.0 % (40.0-70.0) H 03/11/17 04:35 Band Neutrophils % 0 % 03/11/17 04:35 Lymphocytes % (Manual) 18.0 % (13.4-35.0) 03/11/17 04:35 Reactive Lymphs % (Man) 0 % 03/11/17 04:35 Monocytes % (Manual) 5.0 % (0.0-7.3) 03/11/17 04:35 Eosinophils % (Manual) 4.0 % (0.0-4.3) 03/11/17 04:35 Basophils % (Manual) 0 % (0.0-1.8) 03/11/17 04:35 Metamyelocytes % 0 % 03/11/17 04:35 Myelocytes % 0 % 03/11/17 04:35 Promyelocytes % 0 % 03/11/17 04:35 Blast Cells % 0 % 03/11/17 04:35 Nucleated RBC % Not Reportable 03/11/17 04:35 Seg Neutrophils # 2.9 K/mm3 (1.8-7.7) 03/10/17 05:24 Seg Neutrophils # Man 2.4 K/mm3 (1.8-7.7) 03/11/17 04:35 Band Neutrophils # 0.0 K/mm3 03/11/17 04:35 Lymphocytes # (Manual) 0.6 K/mm3 (1.2-5.4) L 03/11/17 04:35 Abs React Lymphs (Man) 0.0 K/mm3 03/11/17 04:35 Monocytes # (Manual) 0.2 K/mm3 (0.0-0.8) 03/11/17 04:35 Eosinophils # (Manual) 0.1 K/mm3 (0.0-0.4) 03/11/17 04:35 Basophils # (Manual) 0.0 K/mm3 (0.0-0.1) 03/11/17 04:35 Metamyelocytes # 0.0 K/mm3 03/11/17 04:35 Myelocytes # 0.0 K/mm3 03/11/17 04:35 Promyelocytes # 0.0 K/mm3 03/11/17 04:35 Blast Cells # 0.0 K/mm3 03/11/17 04:35 WBC Morphology Not Reportable 03/11/17 04:35 Hypersegmented Neuts Not Reportable 03/11/17 04:35 Hyposegmented Neuts Not Reportable 03/11/17 04:35 Hypogranular Neuts Not Reportable 03/11/17 04:35 Smudge Cells Not Reportable 03/11/17 04:35 Toxic Granulation Not Reportable 03/11/17 04:35 Toxic Vacuolation Not Reportable 03/11/17 04:35 Dohle Bodies Not Reportable 03/11/17 04:35 Pelger-Huet Anomaly Not Reportable 03/11/17 04:35 Jose Rods Not Reportable 03/11/17 04:35 Platelet Estimate Consistent w auto 03/11/17 04:35 Clumped Platelets Not Reportable 03/11/17 04:35 Plt Clumps, EDTA Not Reportable 03/11/17 04:35 Large Platelets Not Reportable 03/11/17 04:35 Giant Platelets Not Reportable 03/11/17 04:35 Platelet Satelliting Not Reportable 03/11/17 04:35 Plt Morphology Comment Not Reportable 03/11/17 04:35 RBC Morphology Not Reportable 03/11/17 04:35 Dimorphic RBCs Not Reportable 03/11/17 04:35 Polychromasia Not Reportable 03/11/17 04:35 Hypochromasia Not Reportable 03/11/17 04:35 Poikilocytosis Not Reportable 03/11/17 04:35 Anisocytosis Not Reportable 03/11/17 04:35 Microcytosis Not Reportable 03/11/17 04:35 Macrocytosis Not Reportable 03/11/17 04:35 Spherocytes Not Reportable 03/11/17 04:35 Pappenheimer Bodies Not Reportable 03/11/17 04:35 Sickle Cells Not Reportable 03/11/17 04:35 Target Cells Not Reportable 03/11/17 04:35 Tear Drop Cells Not Reportable 03/11/17 04:35 Ovalocytes Not Reportable 03/11/17 04:35 Helmet Cells Not Reportable 03/11/17 04:35 [place] Bodies Not Reportable 03/11/17 04:35 [place] Rings Not Reportable 03/11/17 04:35 [place] Cells Not Reportable 03/11/17 04:35 Bite Cells Not Reportable 03/11/17 04:35 Crenated Cell Not Reportable 03/11/17 04:35 Elliptocytes Not Reportable 03/11/17 04:35 Acanthocytes (Spur) Not Reportable 03/11/17 04:35 Rouleaux Not Reportable 03/11/17 04:35 Hemoglobin C Crystals Not Reportable 03/11/17 04:35 Schistocytes Not Reportable 03/11/17 04:35 Malaria parasites Not Reportable 03/11/17 04:35 [place] Bodies Not Reportable 03/11/17 04:35 Hem Pathologist Commnt No 03/11/17 04:35 PT 15.2 Sec. (12.2-14.9) H 03/06/17 05:35 INR 1.14 (0.87-1.13) H 03/06/17 05:35 APTT 41.5 Sec. (24.2-36.6) H 03/06/17 05:35 POC ABG pH 7.300 (7.35-7.45) L 03/06/17 13:12 POC ABG pCO2 40.0 (35-45) 03/06/17 13:12 POC ABG pO2 83 (80-105) 03/06/17 13:12 POC ABG HCO3 19.7 03/06/17 13:12 POC ABG Total CO2 21 03/06/17 13:12 POC ABG O2 Sat 95 03/06/17 13:12 POC ABG Base Excess -7 03/06/17 13:12 FiO2 28 % 03/06/17 13:12 Sodium 138 mmol/L (137-145) 03/12/17 05:58 Potassium 4.4 mmol/L (3.6-5.0) 03/12/17 05:58 Chloride 94.2 mmol/L (98-107) L 03/12/17 05:58 Carbon Dioxide 25 mmol/L (22-30) 03/12/17 05:58 Anion Gap 23 mmol/L 03/12/17 05:58 BUN 49 mg/dL (9-20) H 03/12/17 05:58 Creatinine 7.0 mg/dL (0.8-1.5) H D 03/12/17 05:58 Estimated GFR 10 ml/min 03/12/17 05:58 BUN/Creatinine Ratio 7.00 % 03/12/17 05:58 Glucose 200 mg/dL (75-100) H 03/12/17 05:58 POC Glucose 104 (70-105) 03/12/17 00:07 Hemoglobin A1c 10.1 % (4-6) H 03/06/17 05:35 Osmolality 373 Mosm/kg 03/06/17 08:04 Lactic Acid 1.30 mmol/L (0.7-2.0) 03/08/17 15:30 Calcium 8.2 mg/dL (8.4-10.2) L 03/12/17 05:58 Phosphorus 4.40 mg/dL (2.5-4.5) D 03/07/17 03:45 Magnesium 1.80 mg/dL (1.7-2.3) 03/09/17 04:13 Total Bilirubin 0.40 mg/dL (0.1-1.2) 03/06/17 05:35 AST 12 units/L (5-40) 03/06/17 05:35 ALT 11 units/L (7-56) 03/06/17 05:35 Alkaline Phosphatase 144 units/L (35-129) H 03/06/17 05:35 C-Reactive Protein 11.40 mg/dL (0.00-1.30) H 03/07/17 Unknown Total Protein 7.5 g/dL (6.3-8.2) 03/06/17 05:35 Albumin 3.9 g/dL (3.9-5) 03/06/17 05:35 Albumin/Globulin Ratio 1.1 % 03/06/17 05:35 Triglycerides 162 mg/dL (2-149) H 03/06/17 10:09 Cholesterol 159 mg/dL (50-199) 03/06/17 10:09 LDL Cholesterol Direct 77 mg/dL (50-130) 03/06/17 10:09 HDL Cholesterol 50 mg/dL (40-59) 03/06/17 10:09 Cholesterol/HDL Ratio 3.18 % 03/06/17 10:09 Lipase 42 units/L (13-60) 03/06/17 05:35 Blood Type O POSITIVE 03/06/17 05:45 Antibody Screen TNR 03/06/17 05:45 BALDEV Antibody Screen Negative 03/06/17 05:45
[2017-03-12] MEDS ORDERED: PANCREAZE DR 10,500 UNIT FEEDTUBE PRN (13:32)
[2017-03-12] MEDS: NORVASC PO SCH (15:23)
[2017-03-12] MEDS: PEPCID PO SCH (15:25)
[2017-03-12] MEDS: LONITEN PO SCH (15:33)
[2017-03-12] MEDS: COZAAR PO SCH (15:33)
[2017-03-12] MEDS: LOPRESSOR PO SCH ×2 (15:34→22:02)
[2017-03-12] MEDS: LEVEMIR SUB-Q SCH (15:37)
[2017-03-12] MEDS: HEPARIN SUB-Q SCH ×2 (15:37→22:03)
--- NOTE | 2017-03-12 18:43 | Progress Note ---
Assessment and Plan Patient sleeping at this time. No acute respiratory distress. O2 saturation 100% on room air. DKA improved. - Patient Problems (1) DKA (diabetic ketoacidoses) Current Visit: Yes Status: Acute Qualifiers: Diabetes mellitus type: D Diabetes mellitus complication detail: D Plan to address problem: Improved. Patient is on S/C Insulinn. Management as per primary care. (2) Acute on chronic kidney failure Current Visit: Yes Status: Acute Qualifiers: Acute renal failure type: A Chronic kidney disease stage: C Plan to address problem: Management as per nephrology. (3) Dehydration Current Visit: Yes Status: Acute Plan to address problem: Improved. Patient off the I/V fluids. (4) Acute encephalopathy Current Visit: Yes Status: Acute Plan to address problem: Appears slightly improved. (5) Shortness of breath Current Visit: Yes Status: Acute Plan to address problem: Improved. O2 saturation 100% on room air. Shortness of breath likely from DKA and metabolic acidosis. ABGs on room AIR AND CHEST XRAY TOMORROW. Subjective Date of service: 03/12/17 Principal diagnosis: PEG placement Interval history: Patient sleeping at this time. No acute respiratory distress. O2 saturation 100% on room air. DKA improved. Objective Vital Signs - 12hr 03/12/17 03/12/17 03/12/17 07:28 09:50 10:00 Temperature 98.1 F 98.4 F Pulse Rate 77 78 Pulse Rate [ 78 Left Brachial] Pulse Rate [ 78 Left Dorsalis Pedis] Respiratory 20 18 Rate Blood Pressure 148/73 145/75 Blood Pressure 170/78 [Left Arm] Blood Pressure 170/78 [Right Arm] O2 Sat by Pulse 98 Oximetry 03/12/17 03/12/17 03/12/17 10:15 10:30 10:45 Temperature Pulse Rate 81 86 92 H Pulse Rate [ Left Brachial] Pulse Rate [ Left Dorsalis Pedis] Respiratory Rate Blood Pressure 140/72 147/79 159/75 Blood Pressure [Left Arm] Blood Pressure [Right Arm] O2 Sat by Pulse Oximetry 03/12/17 03/12/17 03/12/17 11:00 11:15 11:30 Temperature Pulse Rate 87 88 87 Pulse Rate [ Left Brachial] Pulse Rate [ Left Dorsalis Pedis] Respiratory Rate Blood Pressure 126/66 123/64 128/67 Blood Pressure [Left Arm] Blood Pressure [Right Arm] O2 Sat by Pulse Oximetry 03/12/17 03/12/17 03/12/17 11:45 12:00 12:15 Temperature Pulse Rate 87 87 83 Pulse Rate [ Left Brachial] Pulse Rate [ Left Dorsalis Pedis] Respiratory Rate Blood Pressure 130/67 130/67 120/64 Blood Pressure [Left Arm] Blood Pressure [Right Arm] O2 Sat by Pulse Oximetry 03/12/17 03/12/17 03/12/17 12:30 12:45 13:00 Temperature Pulse Rate 86 86 89 Pulse Rate [ Left Brachial] Pulse Rate [ Left Dorsalis Pedis] Respiratory Rate Blood Pressure 132/67 129/72 122/63 Blood Pressure [Left Arm] Blood Pressure [Right Arm] O2 Sat by Pulse Oximetry 03/12/17 03/12/17 03/12/17 13:15 13:30 15:23 Temperature 98.4 F Pulse Rate 86 87 84 Pulse Rate [ Left Brachial] Pulse Rate [ Left Dorsalis Pedis] Respiratory 16 Rate Blood Pressure 134/70 132/67 162/83 Blood Pressure [Left Arm] Blood Pressure [Right Arm] O2 Sat by Pulse Oximetry 03/12/17 03/12/17 03/12/17 15:33 15:34 16:02 Temperature 97.8 F Pulse Rate 84 84 Pulse Rate [ 88 Left Brachial] Pulse Rate [ 88 Left Dorsalis Pedis] Respiratory 20 Rate Blood Pressure 162/83 162/83 Blood Pressure 191/88 [Left Arm] Blood Pressure 191/88 [Right Arm] O2 Sat by Pulse 100 Oximetry Constitutional: no acute distress, other (somnolent) Eyes: non-icteric ENT: oropharynx moist Neck: supple, no lymphadenopathy Effort: normal, mildly labored Ascultation: Bilateral: diminished breath sounds, rales (scant in bases) Cardiovascular: regular rate and rhythm Gastrointestinal: normoactive bowel sounds, soft, non-tender, non-distended Integumentary: normal Extremities: no cyanosis, no edema, pulses normal, no ischemia or petechiae, other (chronic lichenification changes to skin in lower extremities) Neurologic: pupils equal and round, other (Post prior CVA hemiparesis) Psychiatric: other (unable to assess) CBC and BMP: 03/12/17 05:58 03/12/17 05:58 ABG, PT/INR, D-dimer: ABG POC ABG pH 7.300 (7.35-7.45) L 03/06/17 13:12 POC ABG pCO2 40.0 (35-45) 03/06/17 13:12 POC ABG pO2 83 (80-105) 03/06/17 13:12 POC ABG HCO3 19.7 03/06/17 13:12 POC ABG Total CO2 21 03/06/17 13:12 POC ABG O2 Sat 95 03/06/17 13:12 PT/INR, D-dimer PT 15.2 Sec. (12.2-14.9) H 03/06/17 05:35 INR 1.14 (0.87-1.13) H 03/06/17 05:35 Abnormal lab findings: Abnormal Labs 03/06/17 03/06/17 03/06/17 12:23 13:03 13:12 WBC RBC Hgb Hct RDW Lymph % (Auto) [place] % (Auto) Eos % (Auto) Lymph # Seg Neutrophils % Seg Neuts % (Manual) Lymphocytes % (Manual) Monocytes % (Manual) Lymphocytes # (Manual) POC ABG pH 7.300 L Sodium 133 L 132 L Potassium 6.2 H* D Chloride 86.1 L 87.9 L Carbon Dioxide 15 L 16 L BUN 83 H 84 H Creatinine 9.1 H 9.1 H Glucose 820 H* 730 H* POC Glucose Lactic Acid Calcium 8.3 L 8.0 L Magnesium C-Reactive Protein 03/06/17 03/06/17 03/06/17 15:30 16:40 17:46 WBC RBC Hgb Hct RDW Lymph % (Auto) [place] % (Auto) Eos % (Auto) Lymph # Seg Neutrophils % Seg Neuts % (Manual) Lymphocytes % (Manual) Monocytes % (Manual) Lymphocytes # (Manual) POC ABG pH Sodium 136 L Potassium Chloride 90.2 L Carbon Dioxide 20 L BUN 84 H Creatinine 9.0 H Glucose 571 H* POC Glucose 413 H 332 H Lactic Acid Calcium 8.3 L Magnesium C-Reactive Protein 03/06/17 03/06/17 03/06/17 18:42 19:33 23:20 WBC RBC Hgb Hct RDW Lymph % (Auto) [place] % (Auto) Eos % (Auto) Lymph # Seg Neutrophils % Seg Neuts % (Manual) Lymphocytes % (Manual) Monocytes % (Manual) Lymphocytes # (Manual) POC ABG pH Sodium Potassium Chloride Carbon Dioxide BUN Creatinine Glucose POC Glucose 222 H 142 H 148 H Lactic Acid Calcium Magnesium C-Reactive Protein 03/07/17 03/07/17 03/07/17 00:05 00:58 02:05 WBC RBC Hgb Hct RDW Lymph % (Auto) [place] % (Auto) Eos % (Auto) Lymph # Seg Neutrophils % Seg Neuts % (Manual) Lymphocytes % (Manual) Monocytes % (Manual) Lymphocytes # (Manual) POC ABG pH Sodium Potassium Chloride Carbon Dioxide BUN Creatinine Glucose POC Glucose 205 H 259 H 255 H Lactic Acid Calcium Magnesium C-Reactive Protein 03/07/17 03/07/17 03/07/17 02:45 03:45 03:45 WBC RBC Hgb Hct RDW 16.7 H Lymph % (Auto) [place] % (Auto) Eos % (Auto) Lymph # Seg Neutrophils % Seg Neuts % (Manual) 79.0 H Lymphocytes % (Manual) 5.0 L Monocytes % (Manual) 8.0 H Lymphocytes # (Manual) 0.4 L POC ABG pH Sodium Potassium Chloride 95.3 L Carbon Dioxide BUN 41 H Creatinine 5.3 H Glucose 179 H POC Glucose Lactic Acid 2.60 H* Calcium Magnesium C-Reactive Protein 03/07/17 03/07/17 03/07/17 03:45 03:53 05:09 WBC RBC Hgb Hct RDW Lymph % (Auto) [place] % (Auto) Eos % (Auto) Lymph # Seg Neutrophils % Seg Neuts % (Manual) Lymphocytes % (Manual) Monocytes % (Manual) Lymphocytes # (Manual) POC ABG pH Sodium Potassium Chloride Carbon Dioxide BUN Creatinine Glucose POC Glucose 187 H 130 H Lactic Acid Calcium Magnesium 1.60 L C-Reactive Protein 03/07/17 03/07/17 03/07/17 07:54 10:05 10:29 WBC RBC Hgb Hct RDW Lymph % (Auto) [place] % (Auto) Eos % (Auto) Lymph # Seg Neutrophils % Seg Neuts % (Manual) Lymphocytes % (Manual) Monocytes % (Manual) Lymphocytes # (Manual) POC ABG pH Sodium Potassium Chloride 94.0 L Carbon Dioxide BUN 45 H Creatinine 6.3 H Glucose 206 H POC Glucose 120 H 126 H Lactic Acid Calcium Magnesium C-Reactive Protein 03/07/17 03/07/17 03/07/17 13:02 16:46 21:57 WBC RBC Hgb Hct RDW Lymph % (Auto) [place] % (Auto) Eos % (Auto) Lymph # Seg Neutrophils % Seg Neuts % (Manual) Lymphocytes % (Manual) Monocytes % (Manual) Lymphocytes # (Manual) POC ABG pH Sodium Potassium Chloride Carbon Dioxide BUN Creatinine Glucose POC Glucose 147 H 216 H 146 H Lactic Acid Calcium Magnesium C-Reactive Protein 03/07/17 03/08/17 03/08/17 Unknown 00:08 10:55 WBC RBC Hgb Hct RDW Lymph % (Auto) [place] % (Auto) Eos % (Auto) Lymph # Seg Neutrophils % Seg Neuts % (Manual) Lymphocytes % (Manual) Monocytes % (Manual) Lymphocytes # (Manual) POC ABG pH Sodium Potassium Chloride Carbon Dioxide BUN Creatinine Glucose POC Glucose 132 H 323 H Lactic Acid Calcium Magnesium C-Reactive Protein 11.40 H 03/08/17 03/08/17 03/08/17 15:30 15:30 19:36 WBC RBC 3.39 L Hgb 10.4 L Hct 31.5 L RDW 17.0 H Lymph % (Auto) 12.4 L [place] % (Auto) Eos % (Auto) Lymph # 0.6 L Seg Neutrophils % 79.3 H Seg Neuts % (Manual) Lymphocytes % (Manual) Monocytes % (Manual) Lymphocytes # (Manual) POC ABG pH Sodium 136 L Potassium Chloride 93.4 L Carbon Dioxide BUN 45 H Creatinine 5.4 H Glucose 216 H POC Glucose 173 H Lactic Acid Calcium 8.3 L Magnesium C-Reactive Protein 03/08/17 03/09/17 03/09/17 23:49 04:13 04:13 WBC 4.2 L RBC Hgb 11.7 L Hct RDW 17.3 H Lymph % (Auto) [place] % (Auto) 10.5 H Eos % (Auto) Lymph # 0.6 L Seg Neutrophils % 73.5 H Seg Neuts % (Manual) Lymphocytes % (Manual) Monocytes % (Manual) Lymphocytes # (Manual) POC ABG pH Sodium 136 L Potassium Chloride 93.7 L Carbon Dioxide 31 H BUN 31 H Creatinine 4.7 H Glucose 158 H POC Glucose 259 H Lactic Acid Calcium Magnesium C-Reactive Protein 03/09/17 03/09/17 03/09/17 11:06 17:32 22:21 WBC RBC Hgb Hct RDW Lymph % (Auto) [place] % (Auto) Eos % (Auto) Lymph # Seg Neutrophils % Seg Neuts % (Manual) Lymphocytes % (Manual) Monocytes % (Manual) Lymphocytes # (Manual) POC ABG pH Sodium Potassium Chloride Carbon Dioxide BUN Creatinine Glucose POC Glucose 314 H 170 H < 40 L Lactic Acid Calcium Magnesium C-Reactive Protein 03/10/17 03/10/17 03/10/17 05:24 05:24 07:50 WBC 4.4 L RBC 3.59 L Hgb 10.8 L Hct 33.6 L RDW 16.8 H Lymph % (Auto) [place] % (Auto) 11.9 H Eos % (Auto) 4.6 H Lymph # 0.7 L Seg Neutrophils % Seg Neuts % (Manual) Lymphocytes % (Manual) Monocytes % (Manual) Lymphocytes # (Manual) POC ABG pH Sodium Potassium Chloride 94.4 L Carbon Dioxide BUN 46 H Creatinine 6.0 H Glucose POC Glucose 155 H Lactic Acid Calcium 8.1 L Magnesium C-Reactive Protein 03/10/17 03/10/17 03/11/17 16:22 21:51 04:03 WBC RBC Hgb Hct RDW Lymph % (Auto) [place] % (Auto) Eos % (Auto) Lymph # Seg Neutrophils % Seg Neuts % (Manual) Lymphocytes % (Manual) Monocytes % (Manual) Lymphocytes # (Manual) POC ABG pH Sodium Potassium Chloride Carbon Dioxide BUN Creatinine Glucose POC Glucose 354 H 442 H 292 H Lactic Acid Calcium Magnesium C-Reactive Protein 03/11/17 03/11/17 03/11/17 04:35 04:35 08:16 WBC 3.3 L RBC Hgb 11.1 L Hct 35.0 L RDW 16.8 H Lymph % (Auto) [place] % (Auto) Eos % (Auto) Lymph # Seg Neutrophils % Seg Neuts % (Manual) 73.0 H Lymphocytes % (Manual) Monocytes % (Manual) Lymphocytes # (Manual) 0.6 L POC ABG pH Sodium 135 L Potassium Chloride 91.5 L Carbon Dioxide BUN 33 H Creatinine 4.6 H Glucose 274 H POC Glucose 474 H Lactic Acid Calcium 8.2 L Magnesium C-Reactive Protein 03/11/17 03/11/17 03/12/17 13:01 21:43 05:58 WBC RBC Hgb 10.5 L Hct 33.3 L RDW Lymph % (Auto) [place] % (Auto) Eos % (Auto) Lymph # Seg Neutrophils % Seg Neuts % (Manual) Lymphocytes % (Manual) Monocytes % (Manual) Lymphocytes # (Manual) POC ABG pH Sodium Potassium Chloride Carbon Dioxide BUN Creatinine Glucose POC Glucose 356 H 45 L Lactic Acid Calcium Magnesium C-Reactive Protein 03/12/17 03/12/17 03/12/17 05:58 08:44 16:02 WBC RBC Hgb Hct RDW Lymph % (Auto) [place] % (Auto) Eos % (Auto) Lymph # Seg Neutrophils % Seg Neuts % (Manual) Lymphocytes % (Manual) Monocytes % (Manual) Lymphocytes # (Manual) POC ABG pH Sodium Potassium Chloride 94.2 L Carbon Dioxide BUN 49 H Creatinine 7.0 H D Glucose 200 H POC Glucose 282 H 303 H Lactic Acid Calcium 8.2 L Magnesium C-Reactive Protein
[2017-03-12] MEDS: REMERON PO SCH (22:03)
[2017-03-12] MEDS: XALATAN 0.005% OD SCH (22:09)
[2017-03-13 06:24] LABS: Hematocrit 33.1 % (35.5-45.6); Hemoglobin 10.5 gm/dl (11.8-15.2); Mean Corpuscular HGB Conc 32 % (32-34); Mean Corpuscular Hemoglobin 30 pg (28-32); Mean Corpuscular Volume 93 fl (84-94); Platelet Count 247 K/mm3 (140-440); Red Blood Count 3.56 M/mm3 (3.65-5.03); Red Cell Distribution Width 16.1 % (13.2-15.2); White Blood Count 3.7 K/mm3 (4.5-11.0)
[2017-03-13 06:36] LABS: INR 0.96 (0.87-1.13)
[2017-03-13 06:44] LABS: Albumin 3.4 g/dL (3.9-5); Albumin/Globulin Ratio 1.1 %; BUN/Creatinine Ratio 5.76; Bilirubin,Total 0.4 mg/dL (0.1-1.2); Calcium 8.4 mg/dL (8.4-10.2); Chloride 91.5 mmol/L (98-107); Potassium 4.4 mmol/L (3.6-5.0); Total Protein 6.4 g/dL (6.3-8.2)
[2017-03-13] MEDS: NOVOLOG SUB-Q SCH ×4 (09:22→22:48)
[2017-03-13] MEDS: LEVEMIR SUB-Q SCH (09:23)
--- NOTE | 2017-03-13 09:44 | XRay Report ---
Chest 2 views. History: Shortness of breath. Findings: The heart and donor vessels are normal. The lungs are clear. No pleural fluid is seen. An NG tube is noted. Impression: No acute findings. This represent an interval change since March 06.
--- NOTE | 2017-03-13 10:26 | Progress Note ---
Subjective Principal diagnosis: DKA; hematemesis Interval history: Patient was seen today for follow-up on multiple renal related issues Events noted No acute distress Vitals labs intake output medications reviewed Social history: Reviewed Family history: Reviewed Physical examination Vitals: Reviewed HEENT: Oral mucosa moist Neck: Supple no JVD Chest: Clear to auscultation no crackles Heart: Regular rate and rhythm S1 and S2 heard Abdomen: Soft nontender bowel sounds present Extremity: Mild edema dry skin Dermatology; dry skin Psychiatry: No evidence of agitation or aggression Assessment and plan; End-stage renal disease in a patient who has been dialysis dependent Patient will continue to receive his hemodialysis on Friday and Friday schedule Admitted with moderately severe hyperkalemia which responded well to hemodialysis treatment Blood pressure is well-controlled Hemoglobin currently 10.5 potassium 4.4 creatinine 5.2 calcium 8.4 Diabetic ketoacidosis patient has had similar admissions in the past very poor compliant high mortality risk GI bleed hemodynamically stable Monitor dialysis related labs Periodically monitor renal related labs We'll continue to follow and make recommendation from renal standpoint Objective - Vital Signs Vital signs: Vital Signs - 12hr 03/13/17 03/13/17 03/13/17 01:18 04:05 06:41 Temperature 97.8 F 97.9 F Pulse Rate 16 L Pulse Rate [ 0 L 0 L Left Brachial] Pulse Rate [ 0 L 0 L Left Dorsalis Pedis] Pulse Rate [ 0 L 0 L Right Dorsalis Pedis] Pulse Rate [ 65 70 Right] Respiratory 20 20 Rate Blood Pressure 0/0 0/0 [Left Arm] Blood Pressure 122/60 132/63 [Right Arm] O2 Sat by Pulse 99 99 Oximetry 03/13/17 07:30 Temperature 97.4 F L Pulse Rate Pulse Rate [ 81 Left Brachial] Pulse Rate [ 81 Left Dorsalis Pedis] Pulse Rate [ 81 Right Dorsalis Pedis] Pulse Rate [ 81 Right] Respiratory 20 Rate Blood Pressure 138/69 [Left Arm] Blood Pressure 138/69 [Right Arm] O2 Sat by Pulse 98 Oximetry - Lab 03/13/17 05:45 03/13/17 05:45 Most recent lab results Calcium 8.4 mg/dL (8.4-10.2) 03/13/17 05:45 Phosphorus 4.40 mg/dL (2.5-4.5) D 03/07/17 03:45 Magnesium 1.80 mg/dL (1.7-2.3) 03/09/17 04:13
[2017-03-13] MEDS: HEPARIN SUB-Q SCH ×2 (10:59→22:48)
[2017-03-13 11:52] LABS: ISTAT Base Excess 1; ISTAT DEVICE 0; ISTAT HCO3 25.6; ISTAT PCO2 40.2 (35-45); ISTAT PH 7.411 (7.35-7.45); ISTAT PO2 86 (80-105); ISTAT SO2 97; ISTAT TCO2 27
--- NOTE | 2017-03-13 13:07 | Progress Note ---
Assessment and Plan - Patient Problems (1) DKA (diabetic ketoacidoses) Current Visit: Yes Status: Acute Qualifiers: Diabetes mellitus type: D Diabetes mellitus complication detail: D Plan to address problem: - resolved - transitioned to long acting insulin (levemir 10units q24h) - continue enteral nutrition as tolerated (2) Acute on chronic kidney failure Current Visit: Yes Status: Acute Qualifiers: Acute renal failure type: A Chronic kidney disease stage: C Plan to address problem: - apparently ESRD on M// schedule - HD/UF today - electrolytes shifting appropriately with DKA treatment - per nephrology otherwise (3) Acute encephalopathy Current Visit: Yes Status: Acute Plan to address problem: - likely chronic component - improved in short term after treatment for DKA and post dialysis - follow clinically (4) Anemia Current Visit: No Status: Chronic Qualifiers: Anemia type: A Iron deficiency anemia type: I Vitamin B12 deficiency anemia type: V Folate deficiency anemia type: F Bone marrow failure anemia type: B Hemolytic anemia type: H Other causes of anemia: O Chronic kidney disease stage: C Plan to address problem: - likely chronic disease component - doubt significant ABLA as no active GI bleeding so far - continue PPI therapy - send iron studies and treat as necessary (5) Hematemesis/vomiting blood Current Visit: Yes Status: Acute Qualifiers: Nausea presence: N Plan to address problem: - no active bleeding - continue zofran for N&V - GI evaluation ongoing - continue PPI therapy - trend H&H (stable) - for PEG placement (6) Hypertension Current Visit: No Status: Chronic Qualifiers: Hypertension type: H Plan to address problem: - continue home antihypertensives and adjust as necessary (7) Discharge planning issues Current Visit: No Status: Acute Plan to address problem: - improved ..needs PEG before placement ....will re-evaluate in am & prn Subjective Date of service: 03/13/17 Principal diagnosis: DKA; hematemesis Interval history: Seen and examined at bedside; 24 hour events reviewed; nursing and respiratory care staff consulted; no adverse overnight events reported to me; resting peacefully in bed; tolerating tube feeds; No emesis or overt aspiration reported ; awaiting PEG placement; No increased work of breathing Objective Vital Signs - 12hr 03/13/17 03/13/17 03/13/17 01:18 04:05 06:41 Temperature 97.8 F 97.9 F Pulse Rate 16 L Pulse Rate [ 0 L 0 L Left Brachial] Pulse Rate [ 0 L 0 L Left Dorsalis Pedis] Pulse Rate [ 0 L 0 L Right Dorsalis Pedis] Pulse Rate [ 65 70 Right] Respiratory 20 20 Rate Blood Pressure 0/0 0/0 [Left Arm] Blood Pressure 122/60 132/63 [Right Arm] O2 Sat by Pulse 99 99 Oximetry 03/13/17 07:30 Temperature 97.4 F L Pulse Rate Pulse Rate [ 81 Left Brachial] Pulse Rate [ 81 Left Dorsalis Pedis] Pulse Rate [ 81 Right Dorsalis Pedis] Pulse Rate [ 81 Right] Respiratory 20 Rate Blood Pressure 138/69 [Left Arm] Blood Pressure 138/69 [Right Arm] O2 Sat by Pulse 98 Oximetry Constitutional: no acute distress, other (somnolent) Eyes: non-icteric ENT: oropharynx moist Neck: supple, no lymphadenopathy Effort: normal Ascultation: Bilateral: diminished breath sounds, rales (scant in bases) Cardiovascular: regular rate and rhythm Gastrointestinal: normoactive bowel sounds, soft, non-tender, non-distended Integumentary: normal Extremities: no cyanosis, no edema, pulses normal, no ischemia or petechiae, other (chronic lichenification changes to skin in lower extremities) Neurologic: pupils equal and round, other (Post prior CVA hemiparesis) Psychiatric: other (unable to assess) CBC and BMP: 03/13/17 05:45 03/13/17 05:45 ABG, PT/INR, D-dimer: ABG POC ABG pH 7.411 (7.35-7.45) 03/13/17 09:39 POC ABG pCO2 40.2 (35-45) 03/13/17 09:39 POC ABG pO2 86 (80-105) 03/13/17 09:39 POC ABG HCO3 25.6 03/13/17 09:39 POC ABG Total CO2 27 03/13/17 09:39 POC ABG O2 Sat 97 03/13/17 09:39 PT/INR, D-dimer PT 12.7 Sec. (12.2-14.9) 03/13/17 05:45 INR 0.96 (0.87-1.13) 03/13/17 05:45 Abnormal lab findings: Abnormal Labs 03/06/17 03/06/17 03/06/17 12:23 13:03 13:12 WBC RBC Hgb Hct RDW Lymph % (Auto) [place] % (Auto) Eos % (Auto) Lymph # Seg Neutrophils % Seg Neuts % (Manual) Lymphocytes % (Manual) Monocytes % (Manual) Lymphocytes # (Manual) POC ABG pH 7.300 L Sodium 133 L 132 L Potassium 6.2 H* D Chloride 86.1 L 87.9 L Carbon Dioxide 15 L 16 L BUN 83 H 84 H Creatinine 9.1 H 9.1 H Glucose 820 H* 730 H* POC Glucose Lactic Acid Calcium 8.3 L 8.0 L Magnesium C-Reactive Protein Albumin 03/06/17 03/06/17 03/06/17 15:30 16:40 17:46 WBC RBC Hgb Hct RDW Lymph % (Auto) [place] % (Auto) Eos % (Auto) Lymph # Seg Neutrophils % Seg Neuts % (Manual) Lymphocytes % (Manual) Monocytes % (Manual) Lymphocytes # (Manual) POC ABG pH Sodium 136 L Potassium Chloride 90.2 L Carbon Dioxide 20 L BUN 84 H Creatinine 9.0 H Glucose 571 H* POC Glucose 413 H 332 H Lactic Acid Calcium 8.3 L Magnesium C-Reactive Protein Albumin 03/06/17 03/06/17 03/06/17 18:42 19:33 23:20 WBC RBC Hgb Hct RDW Lymph % (Auto) [place] % (Auto) Eos % (Auto) Lymph # Seg Neutrophils % Seg Neuts % (Manual) Lymphocytes % (Manual) Monocytes % (Manual) Lymphocytes # (Manual) POC ABG pH Sodium Potassium Chloride Carbon Dioxide BUN Creatinine Glucose POC Glucose 222 H 142 H 148 H Lactic Acid Calcium Magnesium C-Reactive Protein Albumin 03/07/17 03/07/17 03/07/17 00:05 00:58 02:05 WBC RBC Hgb Hct RDW Lymph % (Auto) [place] % (Auto) Eos % (Auto) Lymph # Seg Neutrophils % Seg Neuts % (Manual) Lymphocytes % (Manual) Monocytes % (Manual) Lymphocytes # (Manual) POC ABG pH Sodium Potassium Chloride Carbon Dioxide BUN Creatinine Glucose POC Glucose 205 H 259 H 255 H Lactic Acid Calcium Magnesium C-Reactive Protein Albumin 03/07/17 03/07/17 03/07/17 02:45 03:45 03:45 WBC RBC Hgb Hct RDW 16.7 H Lymph % (Auto) [place] % (Auto) Eos % (Auto) Lymph # Seg Neutrophils % Seg Neuts % (Manual) 79.0 H Lymphocytes % (Manual) 5.0 L Monocytes % (Manual) 8.0 H Lymphocytes # (Manual) 0.4 L POC ABG pH Sodium Potassium Chloride 95.3 L Carbon Dioxide BUN 41 H Creatinine 5.3 H Glucose 179 H POC Glucose Lactic Acid 2.60 H* Calcium Magnesium C-Reactive Protein Albumin 03/07/17 03/07/17 03/07/17 03:45 03:53 05:09 WBC RBC Hgb Hct RDW Lymph % (Auto) [place] % (Auto) Eos % (Auto) Lymph # Seg Neutrophils % Seg Neuts % (Manual) Lymphocytes % (Manual) Monocytes % (Manual) Lymphocytes # (Manual) POC ABG pH Sodium Potassium Chloride Carbon Dioxide BUN Creatinine Glucose POC Glucose 187 H 130 H Lactic Acid Calcium Magnesium 1.60 L C-Reactive Protein Albumin 03/07/17 03/07/17 03/07/17 07:54 10:05 10:29 WBC RBC Hgb Hct RDW Lymph % (Auto) [place] % (Auto) Eos % (Auto) Lymph # Seg Neutrophils % Seg Neuts % (Manual) Lymphocytes % (Manual) Monocytes % (Manual) Lymphocytes # (Manual) POC ABG pH Sodium Potassium Chloride 94.0 L Carbon Dioxide BUN 45 H Creatinine 6.3 H Glucose 206 H POC Glucose 120 H 126 H Lactic Acid Calcium Magnesium C-Reactive Protein Albumin 03/07/17 03/07/17 03/07/17 13:02 16:46 21:57 WBC RBC Hgb Hct RDW Lymph % (Auto) [place] % (Auto) Eos % (Auto) Lymph # Seg Neutrophils % Seg Neuts % (Manual) Lymphocytes % (Manual) Monocytes % (Manual) Lymphocytes # (Manual) POC ABG pH Sodium Potassium Chloride Carbon Dioxide BUN Creatinine Glucose POC Glucose 147 H 216 H 146 H Lactic Acid Calcium Magnesium C-Reactive Protein Albumin 03/07/17 03/08/17 03/08/17 Unknown 00:08 10:55 WBC RBC Hgb Hct RDW Lymph % (Auto) [place] % (Auto) Eos % (Auto) Lymph # Seg Neutrophils % Seg Neuts % (Manual) Lymphocytes % (Manual) Monocytes % (Manual) Lymphocytes # (Manual) POC ABG pH Sodium Potassium Chloride Carbon Dioxide BUN Creatinine Glucose POC Glucose 132 H 323 H Lactic Acid Calcium Magnesium C-Reactive Protein 11.40 H Albumin 03/08/17 03/08/17 03/08/17 15:30 15:30 19:36 WBC RBC 3.39 L Hgb 10.4 L Hct 31.5 L RDW 17.0 H Lymph % (Auto) 12.4 L [place] % (Auto) Eos % (Auto) Lymph # 0.6 L Seg Neutrophils % 79.3 H Seg Neuts % (Manual) Lymphocytes % (Manual) Monocytes % (Manual) Lymphocytes # (Manual) POC ABG pH Sodium 136 L Potassium Chloride 93.4 L Carbon Dioxide BUN 45 H Creatinine 5.4 H Glucose 216 H POC Glucose 173 H Lactic Acid Calcium 8.3 L Magnesium C-Reactive Protein Albumin 03/08/17 03/09/17 03/09/17 23:49 04:13 04:13 WBC 4.2 L RBC Hgb 11.7 L Hct RDW 17.3 H Lymph % (Auto) [place] % (Auto) 10.5 H Eos % (Auto) Lymph # 0.6 L Seg Neutrophils % 73.5 H Seg Neuts % (Manual) Lymphocytes % (Manual) Monocytes % (Manual) Lymphocytes # (Manual) POC ABG pH Sodium 136 L Potassium Chloride 93.7 L Carbon Dioxide 31 H BUN 31 H Creatinine 4.7 H Glucose 158 H POC Glucose 259 H Lactic Acid Calcium Magnesium C-Reactive Protein Albumin 03/09/17 03/09/17 03/09/17 11:06 17:32 22:21 WBC RBC Hgb Hct RDW Lymph % (Auto) [place] % (Auto) Eos % (Auto) Lymph # Seg Neutrophils % Seg Neuts % (Manual) Lymphocytes % (Manual) Monocytes % (Manual) Lymphocytes # (Manual) POC ABG pH Sodium Potassium Chloride Carbon Dioxide BUN Creatinine Glucose POC Glucose 314 H 170 H < 40 L Lactic Acid Calcium Magnesium C-Reactive Protein Albumin 03/10/17 03/10/17 03/10/17 05:24 05:24 07:50 WBC 4.4 L RBC 3.59 L Hgb 10.8 L Hct 33.6 L RDW 16.8 H Lymph % (Auto) [place] % (Auto) 11.9 H Eos % (Auto) 4.6 H Lymph # 0.7 L Seg Neutrophils % Seg Neuts % (Manual) Lymphocytes % (Manual) Monocytes % (Manual) Lymphocytes # (Manual) POC ABG pH Sodium Potassium Chloride 94.4 L Carbon Dioxide BUN 46 H Creatinine 6.0 H Glucose POC Glucose 155 H Lactic Acid Calcium 8.1 L Magnesium C-Reactive Protein Albumin 03/10/17 03/10/17 03/11/17 16:22 21:51 04:03 WBC RBC Hgb Hct RDW Lymph % (Auto) [place] % (Auto) Eos % (Auto) Lymph # Seg Neutrophils % Seg Neuts % (Manual) Lymphocytes % (Manual) Monocytes % (Manual) Lymphocytes # (Manual) POC ABG pH Sodium Potassium Chloride Carbon Dioxide BUN Creatinine Glucose POC Glucose 354 H 442 H 292 H Lactic Acid Calcium Magnesium C-Reactive Protein Albumin 03/11/17 03/11/17 03/11/17 04:35 04:35 08:16 WBC 3.3 L RBC Hgb 11.1 L Hct 35.0 L RDW 16.8 H Lymph % (Auto) [place] % (Auto) Eos % (Auto) Lymph # Seg Neutrophils % Seg Neuts % (Manual) 73.0 H Lymphocytes % (Manual) Monocytes % (Manual) Lymphocytes # (Manual) 0.6 L POC ABG pH Sodium 135 L Potassium Chloride 91.5 L Carbon Dioxide BUN 33 H Creatinine 4.6 H Glucose 274 H POC Glucose 474 H Lactic Acid Calcium 8.2 L Magnesium C-Reactive Protein Albumin 03/11/17 03/11/17 03/12/17 13:01 21:43 05:58 WBC RBC Hgb 10.5 L Hct 33.3 L RDW Lymph % (Auto) [place] % (Auto) Eos % (Auto) Lymph # Seg Neutrophils % Seg Neuts % (Manual) Lymphocytes % (Manual) Monocytes % (Manual) Lymphocytes # (Manual) POC ABG pH Sodium Potassium Chloride Carbon Dioxide BUN Creatinine Glucose POC Glucose 356 H 45 L Lactic Acid Calcium Magnesium C-Reactive Protein Albumin 03/12/17 03/12/17 03/12/17 05:58 08:44 16:02 WBC RBC Hgb Hct RDW Lymph % (Auto) [place] % (Auto) Eos % (Auto) Lymph # Seg Neutrophils % Seg Neuts % (Manual) Lymphocytes % (Manual) Monocytes % (Manual) Lymphocytes # (Manual) POC ABG pH Sodium Potassium Chloride 94.2 L Carbon Dioxide BUN 49 H Creatinine 7.0 H D Glucose 200 H POC Glucose 282 H 303 H Lactic Acid Calcium 8.2 L Magnesium C-Reactive Protein Albumin 03/12/17 03/12/17 03/13/17 18:12 23:29 05:45 WBC 3.7 L RBC 3.56 L Hgb 10.5 L Hct 33.1 L RDW 16.1 H Lymph % (Auto) [place] % (Auto) Eos % (Auto) Lymph # Seg Neutrophils % Seg Neuts % (Manual) Lymphocytes % (Manual) Monocytes % (Manual) Lymphocytes # (Manual) POC ABG pH Sodium Potassium Chloride Carbon Dioxide BUN Creatinine Glucose POC Glucose 332 H 312 H Lactic Acid Calcium Magnesium C-Reactive Protein Albumin 03/13/17 05:45 WBC RBC Hgb Hct RDW Lymph % (Auto) [place] % (Auto) Eos % (Auto) Lymph # Seg Neutrophils % Seg Neuts % (Manual) Lymphocytes % (Manual) Monocytes % (Manual) Lymphocytes # (Manual) POC ABG pH Sodium 136 L Potassium Chloride 91.5 L Carbon Dioxide BUN 30 H Creatinine 5.2 H Glucose 263 H POC Glucose Lactic Acid Calcium Magnesium C-Reactive Protein Albumin 3.4 L
--- NOTE | 2017-03-13 15:29 | Progress Note ---
Assessment and Plan Assessment and plan: DKA - Managed according to DKA protocol and resolved Diabetes mellitus type 2 - Insulin sliding scale insulin - We'll manage his insulin as needed End-stage and is on hemodialysis - Nephrology is following - He will get his hemodialysis as schedule Hematemesis - No bleeding after admission - GI consulted - Recommend H2 rico, monitor H&H, no EGD unless the patient has overt bleeding Speech evaluated him and not a candidate for PO feeding - Scheduled to have PEG tomorrow Dementia Hypertension - Controlled - Continue the current medications and dialysis DVT prophylaxis - SCD because of his GI bleed Disposition - Pending mcc placement after PEG placement. History Interval history: Patient was seen and evaluated this morning, Patient is not in pain or distress , he said he doesn't have any problems. He is dementia. Hospitalist Physical - Physical exam Narrative exam: Not in cardiopulmonary distress. The patient appeared well nourished and normally developed. Vital signs as documented. Head exam is unremarkable. No scleral icterus . Neck is without jugular venous distension, thyromegaly, or carotid bruits. Lungs are clear to auscultation. Cardiac exam reveals regular rate and Rhythm. Abdominal exam reveals normal bowel sounds, no masses, no organomegaly and no aortic enlargement. Extremities are nonedematous and both femoral and pedal pulses are normal. MINE PROMOTOR: Patient has dementia. - Constitutional Vitals: Temp Pulse Resp BP Pulse Ox 97.4 F L 81 20 138/69 98 03/13/17 07:30 03/13/17 10:00 03/13/17 07:30 03/13/17 07:30 03/13/17 07:30 General appearance: Present: mild distress, cachectic, other (minimally communicative) Results - Labs CBC & Chem 7: 03/13/17 05:45 03/13/17 05:45 Labs: Laboratory Last Values WBC 3.7 K/mm3 (4.5-11.0) L 03/13/17 05:45 RBC 3.56 M/mm3 (3.65-5.03) L 03/13/17 05:45 Hgb 10.5 gm/dl (11.8-15.2) L 03/13/17 05:45 Hct 33.1 % (35.5-45.6) L 03/13/17 05:45 MCV 93 fl (84-94) 03/13/17 05:45 MCH 30 pg (28-32) 03/13/17 05:45 MCHC 32 % (32-34) 03/13/17 05:45 RDW 16.1 % (13.2-15.2) H 03/13/17 05:45 Plt Count 247 K/mm3 (140-440) 03/13/17 05:45 Lymph % (Auto) 16.3 % (13.4-35.0) 03/10/17 05:24 [place] % (Auto) Tub Tender 03/11/17 04:35 Eos % (Auto) 4.6 % (0.0-4.3) H 03/10/17 05:24 Baso % (Auto) 0.9 % (0.0-1.8) 03/10/17 05:24 Lymph # 0.7 K/mm3 (1.2-5.4) L 03/10/17 05:24 [place] # 0.5 K/mm3 (0.0-0.8) 03/10/17 05:24 Eos # 0.2 K/mm3 (0.0-0.4) 03/10/17 05:24 Baso # 0.0 K/mm3 (0.0-0.1) 03/10/17 05:24 Add Manual Diff Complete 03/11/17 04:35 Total Counted 100 03/11/17 04:35 Seg Neutrophils % 66.3 % (40.0-70.0) 03/10/17 05:24 Seg Neuts % (Manual) 73.0 % (40.0-70.0) H 03/11/17 04:35 Band Neutrophils % 0 % 03/11/17 04:35 Lymphocytes % (Manual) 18.0 % (13.4-35.0) 03/11/17 04:35 Reactive Lymphs % (Man) 0 % 03/11/17 04:35 Monocytes % (Manual) 5.0 % (0.0-7.3) 03/11/17 04:35 Eosinophils % (Manual) 4.0 % (0.0-4.3) 03/11/17 04:35 Basophils % (Manual) 0 % (0.0-1.8) 03/11/17 04:35 Metamyelocytes % 0 % 03/11/17 04:35 Myelocytes % 0 % 03/11/17 04:35 Promyelocytes % 0 % 03/11/17 04:35 Blast Cells % 0 % 03/11/17 04:35 Nucleated RBC % Not Reportable 03/11/17 04:35 Seg Neutrophils # 2.9 K/mm3 (1.8-7.7) 03/10/17 05:24 Seg Neutrophils # Man 2.4 K/mm3 (1.8-7.7) 03/11/17 04:35 Band Neutrophils # 0.0 K/mm3 03/11/17 04:35 Lymphocytes # (Manual) 0.6 K/mm3 (1.2-5.4) L 03/11/17 04:35 Abs React Lymphs (Man) 0.0 K/mm3 03/11/17 04:35 Monocytes # (Manual) 0.2 K/mm3 (0.0-0.8) 03/11/17 04:35 Eosinophils # (Manual) 0.1 K/mm3 (0.0-0.4) 03/11/17 04:35 Basophils # (Manual) 0.0 K/mm3 (0.0-0.1) 03/11/17 04:35 Metamyelocytes # 0.0 K/mm3 03/11/17 04:35 Myelocytes # 0.0 K/mm3 03/11/17 04:35 Promyelocytes # 0.0 K/mm3 03/11/17 04:35 Blast Cells # 0.0 K/mm3 03/11/17 04:35 WBC Morphology Not Reportable 03/11/17 04:35 Hypersegmented Neuts Not Reportable 03/11/17 04:35 Hyposegmented Neuts Not Reportable 03/11/17 04:35 Hypogranular Neuts Not Reportable 03/11/17 04:35 Smudge Cells Not Reportable 03/11/17 04:35 Toxic Granulation Not Reportable 03/11/17 04:35 Toxic Vacuolation Not Reportable 03/11/17 04:35 Dohle Bodies Not Reportable 03/11/17 04:35 Pelger-Huet Anomaly Not Reportable 03/11/17 04:35 Jose Rods Not Reportable 03/11/17 04:35 Platelet Estimate Consistent w auto 03/11/17 04:35 Clumped Platelets Not Reportable 03/11/17 04:35 Plt Clumps, EDTA Not Reportable 03/11/17 04:35 Large Platelets Not Reportable 03/11/17 04:35 Giant Platelets Not Reportable 03/11/17 04:35 Platelet Satelliting Not Reportable 03/11/17 04:35 Plt Morphology Comment Not Reportable 03/11/17 04:35 RBC Morphology Not Reportable 03/11/17 04:35 Dimorphic RBCs Not Reportable 03/11/17 04:35 Polychromasia Not Reportable 03/11/17 04:35 Hypochromasia Not Reportable 03/11/17 04:35 Poikilocytosis Not Reportable 03/11/17 04:35 Anisocytosis Not Reportable 03/11/17 04:35 Microcytosis Not Reportable 03/11/17 04:35 Macrocytosis Not Reportable 03/11/17 04:35 Spherocytes Not Reportable 03/11/17 04:35 Pappenheimer Bodies Not Reportable 03/11/17 04:35 Sickle Cells Not Reportable 03/11/17 04:35 Target Cells Not Reportable 03/11/17 04:35 Tear Drop Cells Not Reportable 03/11/17 04:35 Ovalocytes Not Reportable 03/11/17 04:35 Helmet Cells Not Reportable 03/11/17 04:35 [place] Bodies Not Reportable 03/11/17 04:35 Sayre Rings Not Reportable 03/11/17 04:35 Cyril Cells Not Reportable 03/11/17 04:35 Bite Cells Not Reportable 03/11/17 04:35 Crenated Cell Not Reportable 03/11/17 04:35 Elliptocytes Not Reportable 03/11/17 04:35 Acanthocytes (Spur) Not Reportable 03/11/17 04:35 Rouleaux Not Reportable 03/11/17 04:35 Hemoglobin C Crystals Not Reportable 03/11/17 04:35 Schistocytes Not Reportable 03/11/17 04:35 Malaria parasites Not Reportable 03/11/17 04:35 [place]den Bodies Not Reportable 03/11/17 04:35 Hem Pathologist Commnt No 03/11/17 04:35 PT 12.7 Sec. (12.2-14.9) 03/13/17 05:45 INR 0.96 (0.87-1.13) 03/13/17 05:45 APTT 41.5 Sec. (24.2-36.6) H 03/06/17 05:35 POC ABG pH 7.411 (7.35-7.45) 03/13/17 09:39 POC ABG pCO2 40.2 (35-45) 03/13/17 09:39 POC ABG pO2 86 (80-105) 03/13/17 09:39 POC ABG HCO3 25.6 03/13/17 09:39 POC ABG Total CO2 27 03/13/17 09:39 POC ABG O2 Sat 97 03/13/17 09:39 POC ABG Base Excess 1 03/13/17 09:39 FiO2 21 % 03/13/17 09:39 Sodium 136 mmol/L (137-145) L 03/13/17 05:45 Potassium 4.4 mmol/L (3.6-5.0) 03/13/17 05:45 Chloride 91.5 mmol/L (98-107) L 03/13/17 05:45 Carbon Dioxide 28 mmol/L (22-30) 03/13/17 05:45 Anion Gap 21 mmol/L 03/13/17 05:45 BUN 30 mg/dL (9-20) H 03/13/17 05:45 Creatinine 5.2 mg/dL (0.8-1.5) H 03/13/17 05:45 Estimated GFR 14 ml/min 03/13/17 05:45 BUN/Creatinine Ratio 5.76 % 03/13/17 05:45 Glucose 263 mg/dL (75-100) H 03/13/17 05:45 POC Glucose 312 (70-105) H 03/12/17 23:29 Hemoglobin A1c 10.1 % (4-6) H 03/06/17 05:35 Osmolality 373 Mosm/kg 03/06/17 08:04 Lactic Acid 1.30 mmol/L (0.7-2.0) 03/08/17 15:30 Calcium 8.4 mg/dL (8.4-10.2) 03/13/17 05:45 Phosphorus 4.40 mg/dL (2.5-4.5) D 03/07/17 03:45 Magnesium 1.80 mg/dL (1.7-2.3) 03/09/17 04:13 Total Bilirubin 0.40 mg/dL (0.1-1.2) 03/13/17 05:45 AST 11 units/L (5-40) 03/13/17 05:45 ALT 8 units/L (7-56) 03/13/17 05:45 Alkaline Phosphatase 128 units/L (35-129) 03/13/17 05:45 C-Reactive Protein 11.40 mg/dL (0.00-1.30) H 03/07/17 Unknown Total Protein 6.4 g/dL (6.3-8.2) 03/13/17 05:45 Albumin 3.4 g/dL (3.9-5) L 03/13/17 05:45 Albumin/Globulin Ratio 1.1 % 03/13/17 05:45 Triglycerides 162 mg/dL (2-149) H 03/06/17 10:09 Cholesterol 159 mg/dL (50-199) 03/06/17 10:09 LDL Cholesterol Direct 77 mg/dL (50-130) 03/06/17 10:09 HDL Cholesterol 50 mg/dL (40-59) 03/06/17 10:09 Cholesterol/HDL Ratio 3.18 % 03/06/17 10:09 Lipase 42 units/L (13-60) 03/06/17 05:35 Blood Type O POSITIVE 03/06/17 05:45 Antibody Screen TNR 03/06/17 05:45 BALDEV Antibody Screen Negative 03/06/17 05:45
[2017-03-13] MEDS: COZAAR PO SCH (16:45)
[2017-03-13] MEDS: NORVASC PO SCH (16:46)
[2017-03-13] MEDS: PEPCID PO SCH (16:47)
[2017-03-13] MEDS: LOPRESSOR PO SCH ×2 (16:47→22:48)
[2017-03-13] MEDS: LONITEN PO SCH (16:47)
[2017-03-13] MEDS: COMBIGAN 0.2-0.5% OD SCH ×2 (16:50→22:45)
--- NOTE | 2017-03-13 17:13 | Event Note ---
Date: 03/13/17 Attempting to get consent EGD/PEG consent. Spoke with pt's sister, Kiran Canseco , . She states pt has 4 children. She have me daughter's number, Gilda, - message left to call my office. Other number for Vahid, - no answer. Will do PEG once get consent.
[2017-03-13] MEDS: REMERON PO SCH (22:47)
[2017-03-13] MEDS ORDERED: D50W (25GM) IV PRN (22:57)
[2017-03-13] MEDS: CATAPRES-TTS PATCH TD SCH (22:58)
[2017-03-14] MEDS: COMBIGAN 0.2-0.5% OD SCH ×3 (01:01→21:29)
[2017-03-14 05:09] LABS: BUN/Creatinine Ratio 6.44; Calcium 8.4 mg/dL (8.4-10.2); Chloride 92.4 mmol/L (98-107); Potassium 4.6 mmol/L (3.6-5.0)
[2017-03-14] MEDS: NOVOLOG SUB-Q SCH ×4 (08:48→20:52)
[2017-03-14] MEDS: XALATAN 0.005% OD SCH ×2 (08:48→18:00)
[2017-03-14] MEDS: LONITEN PO SCH (09:51)
[2017-03-14] MEDS: PEPCID PO SCH (09:51)
[2017-03-14] MEDS ORDERED: NACL 0.9% 1000 ML 1,000 ML IV SCH (10:00)
[2017-03-14] MEDS ORDERED: ANCEF/STERILE WATER 2 GM/20 ML 2 GM/20 ML SYRINGE IV NR (10:00)
[2017-03-14] MEDS ORDERED: XYLOCAINE MPF 2% ONE (10:00)
--- NOTE | 2017-03-14 10:02 | Progress Note ---
Subjective Principal diagnosis: DKA; hematemesis Interval history: Seen around 7.30 am Patient was seen today for follow-up on multiple renal related issues Events noted/ NAD pending G tube No acute distress Vitals labs intake output medications reviewed Social history: Reviewed Family history: Reviewed Physical examination Vitals: Reviewed HEENT: Oral mucosa moist Neck: Supple no JVD Chest: Clear to auscultation no crackles Heart: Regular rate and rhythm S1 and S2 heard Abdomen: Soft nontender bowel sounds present Extremity: Mild edema dry skin Dermatology; dry skin Psychiatry: No evidence of agitation or aggression Assessment and plan; End-stage renal disease in a patient who has been dialysis dependent Continue to receive his hemodialysis on Friday and Friday schedule Admitted with moderately severe hyperkalemia which responded well to hemodialysis treatment Blood pressure is well-controlled, to follow Peg pendign Hemoglobin currently 10.5 potassium 4.4 creatinine 5.2 calcium 8.4- follwo periodically Diabetic ketoacidosis patient has had similar admissions in the past very poor compliant high mortality risk GI bleed hemodynamically stable follwed by GI Monitor dialysis related labs Periodically monitor renal related labs We'll continue to follow and make recommendation from renal standpoint Objective - Vital Signs Vital signs: Vital Signs - 12hr 03/13/17 03/14/17 03/14/17 22:55 00:58 07:18 Temperature 97.5 F L 97.5 F L 97.4 F L Pulse Rate [ 0 L 0 L 0 L Left Brachial] Pulse Rate [ 0 L 0 L 0 L Left Dorsalis Pedis] Pulse Rate [ 0 L 0 L 0 L Right Dorsalis Pedis] Pulse Rate [ 65 67 79 Right] Respiratory 20 20 18 Rate Blood Pressure 0/0 0/0 0/0 [Left Arm] Blood Pressure 126/61 121/72 137/81 [Right Arm] O2 Sat by Pulse 98 99 99 Oximetry 03/14/17 08:56 Temperature 97.6 F Pulse Rate [ Left Brachial] Pulse Rate [ Left Dorsalis Pedis] Pulse Rate [ Right Dorsalis Pedis] Pulse Rate [ 54 L Right] Respiratory 20 Rate Blood Pressure [Left Arm] Blood Pressure 153/94 [Right Arm] O2 Sat by Pulse 99 Oximetry - Lab 03/13/17 05:45 03/14/17 03:47 Most recent lab results Calcium 8.4 mg/dL (8.4-10.2) 03/14/17 03:47 Phosphorus 4.40 mg/dL (2.5-4.5) D 03/07/17 03:45 Magnesium 1.80 mg/dL (1.7-2.3) 03/09/17 04:13
--- NOTE | 2017-03-14 10:08 | Anesthesia Consultation ---
Anesthesia Consult and Med Hx Date of service: 03/14/17 - Airway Anesthetic Teeth Evaluation: Poor ROM Head & Neck: Adequate Mental/Hyoid Distance: Adequate Mallampati Class: Class II Intubation Access Assessment: Probably Good - Pre-Operative Health Status ASA Pre-Surgery Classification: ASA4 Proposed Anesthetic Plan: MAC - Pulmonary Hx Asthma: No COPD: No Hx Pneumonia: No - Cardiovascular System Hx Hypertension: Yes (essential) - Central Nervous System CVA: Yes (residual weakness) Hx Psychiatric Problems: Yes (altered mental status) - Gastrointestinal Hx Ulcer: Yes (hemoemesis) - Endocrine Hx Renal Disease: Yes (HD --) Hx End Stage Renal Disease: No (DIALYSIS ) Hx Insulin Dependent Diabetes: Yes - Other Systems Hx Cancer: No
--- NOTE | 2017-03-14 10:09 | Anesthesia Day of Surgery ---
Anesthesia Day of Surgery - Day of Surgery Patient Examined: Yes Patient H&P Reviewed: Yes Patient is NPO: Yes (NG tube in place) Beta Blockers: Yes
[2017-03-14] MEDS ORDERED: DIPRIVAN 10 MG/ML IV ONE (10:41)
[2017-03-14] MEDS: HEPARIN SUB-Q SCH ×2 (10:50→21:29)
[2017-03-14] MEDS: COZAAR PO SCH (10:50)
[2017-03-14] MEDS: LEVEMIR SUB-Q SCH (10:50)
[2017-03-14] MEDS: NORVASC PO SCH (10:51)
[2017-03-14] MEDS: LOPRESSOR PO SCH ×2 (10:51→21:29)
[2017-03-14] MEDS ORDERED: WATER FOR IRRIG STERILE IR ONE (10:52)
[2017-03-14] MEDS ORDERED: ANCEF/STERILE WATER 2 GM/20 ML IV ONE (10:54)
--- NOTE | 2017-03-14 11:15 | Progress Note ---
Assessment and Plan Assessment and plan: DKA - Managed according to DKA protocol and resolved Diabetes mellitus type 2 - Insulin sliding scale insulin - Accu check End-stage and is on hemodialysis - Nephrology is following - on hemodialysis as scheduled Hematemesis - No bleeding after admission - GI consult appreciated - Recommend H2 rico, monitor H&H, no EGD unless the patient has overt bleeding Speech evaluated him and not a candidate for PO feeding - Scheduled to have PEG for today if consent is obtained Dementia - Supportive care Hypertension - Controlled - Continue the current medications and dialysis DVT prophylaxis - SCD because of his GI bleed Disposition - Pending alf placement after PEG placement. History Interval history: Patient was seen and evaluated this morning, Patient is not in pain or distress. Patient has dementia. PEG placement was not done yesterday because we couldn't get consent. Hospitalist Physical - Physical exam Narrative exam: Not in cardiopulmonary distress. The patient appeared well nourished and normally developed. Vital signs as documented. Head exam is unremarkable. No scleral icterus . Neck is without jugular venous distension, thyromegaly, or carotid bruits. Lungs are clear to auscultation. Cardiac exam reveals regular rate and Rhythm. Abdominal exam reveals normal bowel sounds, no masses, no organomegaly and no aortic enlargement. Extremities are nonedematous and both femoral and pedal pulses are normal. BIOLOGY TUTOR: Patient has dementia. - Constitutional Vitals: Temp Pulse Resp BP Pulse Ox 97.6 F 69 9 L 146/71 95 03/14/17 10:25 03/14/17 10:25 03/14/17 10:25 03/14/17 10:25 03/14/17 10:25 General appearance: Present: mild distress, cachectic, other (minimally communicative) Results - Labs CBC & Chem 7: 03/13/17 05:45 03/14/17 03:47 Labs: Laboratory Last Values WBC 3.7 K/mm3 (4.5-11.0) L 03/13/17 05:45 RBC 3.56 M/mm3 (3.65-5.03) L 03/13/17 05:45 Hgb 10.5 gm/dl (11.8-15.2) L 03/13/17 05:45 Hct 33.1 % (35.5-45.6) L 03/13/17 05:45 MCV 93 fl (84-94) 03/13/17 05:45 MCH 30 pg (28-32) 03/13/17 05:45 MCHC 32 % (32-34) 03/13/17 05:45 RDW 16.1 % (13.2-15.2) H 03/13/17 05:45 Plt Count 247 K/mm3 (140-440) 03/13/17 05:45 Lymph % (Auto) 16.3 % (13.4-35.0) 03/10/17 05:24 [place] % (Auto) [employer] 03/11/17 04:35 Eos % (Auto) 4.6 % (0.0-4.3) H 03/10/17 05:24 Baso % (Auto) 0.9 % (0.0-1.8) 03/10/17 05:24 Lymph # 0.7 K/mm3 (1.2-5.4) L 03/10/17 05:24 [place] # 0.5 K/mm3 (0.0-0.8) 03/10/17 05:24 Eos # 0.2 K/mm3 (0.0-0.4) 03/10/17 05:24 Baso # 0.0 K/mm3 (0.0-0.1) 03/10/17 05:24 Add Manual Diff Complete 03/11/17 04:35 Total Counted 100 03/11/17 04:35 Seg Neutrophils % 66.3 % (40.0-70.0) 03/10/17 05:24 Seg Neuts % (Manual) 73.0 % (40.0-70.0) H 03/11/17 04:35 Band Neutrophils % 0 % 03/11/17 04:35 Lymphocytes % (Manual) 18.0 % (13.4-35.0) 03/11/17 04:35 Reactive Lymphs % (Man) 0 % 03/11/17 04:35 Monocytes % (Manual) 5.0 % (0.0-7.3) 03/11/17 04:35 Eosinophils % (Manual) 4.0 % (0.0-4.3) 03/11/17 04:35 Basophils % (Manual) 0 % (0.0-1.8) 03/11/17 04:35 Metamyelocytes % 0 % 03/11/17 04:35 Myelocytes % 0 % 03/11/17 04:35 Promyelocytes % 0 % 03/11/17 04:35 Blast Cells % 0 % 03/11/17 04:35 Nucleated RBC % Not Reportable 03/11/17 04:35 Seg Neutrophils # 2.9 K/mm3 (1.8-7.7) 03/10/17 05:24 Seg Neutrophils # Man 2.4 K/mm3 (1.8-7.7) 03/11/17 04:35 Band Neutrophils # 0.0 K/mm3 03/11/17 04:35 Lymphocytes # (Manual) 0.6 K/mm3 (1.2-5.4) L 03/11/17 04:35 Abs React Lymphs (Man) 0.0 K/mm3 03/11/17 04:35 Monocytes # (Manual) 0.2 K/mm3 (0.0-0.8) 03/11/17 04:35 Eosinophils # (Manual) 0.1 K/mm3 (0.0-0.4) 03/11/17 04:35 Basophils # (Manual) 0.0 K/mm3 (0.0-0.1) 03/11/17 04:35 Metamyelocytes # 0.0 K/mm3 03/11/17 04:35 Myelocytes # 0.0 K/mm3 03/11/17 04:35 Promyelocytes # 0.0 K/mm3 03/11/17 04:35 Blast Cells # 0.0 K/mm3 03/11/17 04:35 WBC Morphology Not Reportable 03/11/17 04:35 Hypersegmented Neuts Not Reportable 03/11/17 04:35 Hyposegmented Neuts Not Reportable 03/11/17 04:35 Hypogranular Neuts Not Reportable 03/11/17 04:35 Smudge Cells Not Reportable 03/11/17 04:35 Toxic Granulation Not Reportable 03/11/17 04:35 Toxic Vacuolation Not Reportable 03/11/17 04:35 Dohle Bodies Not Reportable 03/11/17 04:35 Pelger-Huet Anomaly Not Reportable 03/11/17 04:35 Jose Rods Not Reportable 03/11/17 04:35 Platelet Estimate Consistent w auto 03/11/17 04:35 Clumped Platelets Not Reportable 03/11/17 04:35 Plt Clumps, EDTA Not Reportable 03/11/17 04:35 Large Platelets Not Reportable 03/11/17 04:35 Giant Platelets Not Reportable 03/11/17 04:35 Platelet Satelliting Not Reportable 03/11/17 04:35 Plt Morphology Comment Not Reportable 03/11/17 04:35 RBC Morphology Not Reportable 03/11/17 04:35 Dimorphic RBCs Not Reportable 03/11/17 04:35 Polychromasia Not Reportable 03/11/17 04:35 Hypochromasia Not Reportable 03/11/17 04:35 Poikilocytosis Not Reportable 03/11/17 04:35 Anisocytosis Not Reportable 03/11/17 04:35 Microcytosis Not Reportable 03/11/17 04:35 Macrocytosis Not Reportable 03/11/17 04:35 Spherocytes Not Reportable 03/11/17 04:35 Pappenheimer Bodies Not Reportable 03/11/17 04:35 Sickle Cells Not Reportable 03/11/17 04:35 Target Cells Not Reportable 03/11/17 04:35 Tear Drop Cells Not Reportable 03/11/17 04:35 Ovalocytes Not Reportable 03/11/17 04:35 Helmet Cells Not Reportable 03/11/17 04:35 Bower-Flat Bodies Not Reportable 03/11/17 04:35 [place] Rings Not Reportable 03/11/17 04:35 [place] Cells Not Reportable 03/11/17 04:35 Bite Cells Not Reportable 03/11/17 04:35 Crenated Cell Not Reportable 03/11/17 04:35 Elliptocytes Not Reportable 03/11/17 04:35 Acanthocytes (Spur) Not Reportable 03/11/17 04:35 Rouleaux Not Reportable 03/11/17 04:35 Hemoglobin C Crystals Not Reportable 03/11/17 04:35 Schistocytes Not Reportable 03/11/17 04:35 Malaria parasites Not Reportable 03/11/17 04:35 [place] Bodies Not Reportable 03/11/17 04:35 Hem Pathologist Commnt No 03/11/17 04:35 PT 12.7 Sec. (12.2-14.9) 03/13/17 05:45 INR 0.96 (0.87-1.13) 03/13/17 05:45 APTT 41.5 Sec. (24.2-36.6) H 03/06/17 05:35 POC ABG pH 7.411 (7.35-7.45) 03/13/17 09:39 POC ABG pCO2 40.2 (35-45) 03/13/17 09:39 POC ABG pO2 86 (80-105) 03/13/17 09:39 POC ABG HCO3 25.6 03/13/17 09:39 POC ABG Total CO2 27 03/13/17 09:39 POC ABG O2 Sat 97 03/13/17 09:39 POC ABG Base Excess 1 03/13/17 09:39 FiO2 21 % 03/13/17 09:39 Sodium 134 mmol/L (137-145) L 03/14/17 03:47 Potassium 4.6 mmol/L (3.6-5.0) 03/14/17 03:47 Chloride 92.4 mmol/L (98-107) L 03/14/17 03:47 Carbon Dioxide 28 mmol/L (22-30) 03/14/17 03:47 Anion Gap 18 mmol/L 03/14/17 03:47 BUN 38 mg/dL (9-20) H 03/14/17 03:47 Creatinine 5.9 mg/dL (0.8-1.5) H 03/14/17 03:47 Estimated GFR 12 ml/min 03/14/17 03:47 BUN/Creatinine Ratio 6.44 % 03/14/17 03:47 Glucose 136 mg/dL (75-100) H 03/14/17 03:47 POC Glucose 185 (70-105) H 03/14/17 06:24 Hemoglobin A1c 10.1 % (4-6) H 03/06/17 05:35 Osmolality 373 Mosm/kg 03/06/17 08:04 Lactic Acid 1.30 mmol/L (0.7-2.0) 03/08/17 15:30 Calcium 8.4 mg/dL (8.4-10.2) 03/14/17 03:47 Phosphorus 4.40 mg/dL (2.5-4.5) D 03/07/17 03:45 Magnesium 1.80 mg/dL (1.7-2.3) 03/09/17 04:13 Total Bilirubin 0.40 mg/dL (0.1-1.2) 03/13/17 05:45 AST 11 units/L (5-40) 03/13/17 05:45 ALT 8 units/L (7-56) 03/13/17 05:45 Alkaline Phosphatase 128 units/L (35-129) 03/13/17 05:45 C-Reactive Protein 11.40 mg/dL (0.00-1.30) H 03/07/17 Unknown Total Protein 6.4 g/dL (6.3-8.2) 03/13/17 05:45 Albumin 3.4 g/dL (3.9-5) L 03/13/17 05:45 Albumin/Globulin Ratio 1.1 % 03/13/17 05:45 Triglycerides 162 mg/dL (2-149) H 03/06/17 10:09 Cholesterol 159 mg/dL (50-199) 03/06/17 10:09 LDL Cholesterol Direct 77 mg/dL (50-130) 03/06/17 10:09 HDL Cholesterol 50 mg/dL (40-59) 03/06/17 10:09 Cholesterol/HDL Ratio 3.18 % 03/06/17 10:09 Lipase 42 units/L (13-60) 03/06/17 05:35 Blood Type O POSITIVE 03/06/17 05:45 Antibody Screen TNR 03/06/17 05:45 BALDEV Antibody Screen Negative 03/06/17 05:45
--- NOTE | 2017-03-14 11:23 | Post Operative Note ---
Pre-op diagnosis: Oropharyngeal dysphagia Post-op diagnosis: other (Successful G-tube placement) Findings: 1. Normal EGD 2. Successful 20Fr G-tube placement, confirmed by repeat EGD. Procedure: EGD/PEG Anesthesia: MAC Surgeon: JONATHAN RIVAS Estimated blood loss: minimal Pathology: none Condition: stable Disposition: floor (May use G-tube after 6 hours.)
--- NOTE | 2017-03-14 12:57 | Progress Note ---
Assessment and Plan - Patient Problems (1) DKA (diabetic ketoacidoses) Status: Acute Qualifiers: Diabetes mellitus type: D Diabetes mellitus complication detail: D Plan to address problem: - resolved - transitioned to long acting insulin (levemir 10units q24h) - continue enteral nutrition as tolerated (2) Acute on chronic kidney failure Status: Acute Qualifiers: Acute renal failure type: A Chronic kidney disease stage: C Plan to address problem: - apparently ESRD on M/W/F schedule - HD/UF today - electrolytes shifting appropriately with DKA treatment - per nephrology otherwise (3) Acute encephalopathy Status: Acute Plan to address problem: - likely chronic component - improved in short term after treatment for DKA and post dialysis - follow clinically (4) Anemia Status: Chronic Qualifiers: Anemia type: A Iron deficiency anemia type: I Vitamin B12 deficiency anemia type: V Folate deficiency anemia type: F Bone marrow failure anemia type: B Hemolytic anemia type: H Other causes of anemia: O Chronic kidney disease stage: C Plan to address problem: - likely chronic disease component - doubt significant ABLA as no active GI bleeding so far - continue PPI therapy - send iron studies and treat as necessary (5) Hematemesis/vomiting blood Status: Acute Qualifiers: Nausea presence: N Plan to address problem: - no active bleeding - continue zofran for N&V - GI evaluation ongoing - continue PPI therapy - trend H&H (stable) - s/p PEG placement (6) Hypertension Status: Chronic Qualifiers: Hypertension type: H Plan to address problem: - continue home antihypertensives and adjust as necessary (7) Discharge planning issues Status: Acute Plan to address problem: - improved - s/p PEG - d/c planning per attending ....will re-evaluate in am & prn Subjective Date of service: 03/14/17 Principal diagnosis: DKA; hematemesis; Acute on Chronic encephalopathy Interval history: Seen and examined at bedside; 24 hour events reviewed; nursing and respiratory care staff consulted; no adverse overnight events reported to me; resting peacefully in bed; s/p PEG placement; no emesis or overt aspiration; tolerating tube feeds well Objective Vital Signs - 12hr 03/14/17 03/14/17 03/14/17 00:58 07:18 08:56 Temperature 97.5 F L 97.4 F L 97.6 F Pulse Rate Pulse Rate [ 0 L 0 L Left Brachial] Pulse Rate [ 0 L 0 L Left Dorsalis Pedis] Pulse Rate [ 0 L 0 L Right Dorsalis Pedis] Pulse Rate [ 67 79 54 L Right] Respiratory 20 18 20 Rate Blood Pressure Blood Pressure 0/0 0/0 [Left Arm] Blood Pressure 121/72 137/81 153/94 [Right Arm] O2 Sat by Pulse 99 99 99 Oximetry 03/14/17 03/14/17 03/14/17 09:50 10:25 11:19 Temperature 97.6 F 97.6 F 97.6 F Pulse Rate 69 69 76 Pulse Rate [ Left Brachial] Pulse Rate [ Left Dorsalis Pedis] Pulse Rate [ Right Dorsalis Pedis] Pulse Rate [ Right] Respiratory 9 L 9 L 16 Rate Blood Pressure 146/71 146/71 154/60 Blood Pressure [Left Arm] Blood Pressure [Right Arm] O2 Sat by Pulse 95 95 96 Oximetry 03/14/17 03/14/17 11:34 11:49 Temperature Pulse Rate 74 75 Pulse Rate [ Left Brachial] Pulse Rate [ Left Dorsalis Pedis] Pulse Rate [ Right Dorsalis Pedis] Pulse Rate [ Right] Respiratory 13 14 Rate Blood Pressure 159/66 163/69 Blood Pressure [Left Arm] Blood Pressure [Right Arm] O2 Sat by Pulse 95 95 Oximetry Constitutional: no acute distress, other (somnolent) Eyes: non-icteric ENT: oropharynx moist Neck: supple, no lymphadenopathy Effort: mildly labored Ascultation: Bilateral: diminished breath sounds, rales (scant in bases posteriorly) Cardiovascular: regular rate and rhythm Gastrointestinal: normoactive bowel sounds, soft, non-tender, non-distended Integumentary: normal Extremities: no cyanosis, no edema, pulses normal, no ischemia or petechiae, other (chronic lichenification changes to skin in lower extremities) Neurologic: pupils equal and round, other (Post prior CVA hemiparesis) Psychiatric: other (unable to assess) CBC and BMP: 03/16/17 06:54 03/16/17 06:54 ABG, PT/INR, D-dimer: ABG POC ABG pH 7.411 (7.35-7.45) 03/13/17 09:39 POC ABG pCO2 40.2 (35-45) 03/13/17 09:39 POC ABG pO2 86 (80-105) 03/13/17 09:39 POC ABG HCO3 25.6 03/13/17 09:39 POC ABG Total CO2 27 03/13/17 09:39 POC ABG O2 Sat 97 03/13/17 09:39 PT/INR, D-dimer PT 12.7 Sec. (12.2-14.9) 03/13/17 05:45 INR 0.96 (0.87-1.13) 03/13/17 05:45 Abnormal lab findings: Abnormal Labs 03/06/17 03/06/17 03/06/17 12:23 13:03 13:12 WBC RBC Hgb Hct RDW Lymph % (Auto) [place] % (Auto) Eos % (Auto) Lymph # Seg Neutrophils % Seg Neuts % (Manual) Lymphocytes % (Manual) Monocytes % (Manual) Lymphocytes # (Manual) POC ABG pH 7.300 L Sodium 133 L 132 L Potassium 6.2 H* D Chloride 86.1 L 87.9 L Carbon Dioxide 15 L 16 L BUN 83 H 84 H Creatinine 9.1 H 9.1 H Glucose 820 H* 730 H* POC Glucose Lactic Acid Calcium 8.3 L 8.0 L Magnesium C-Reactive Protein Albumin 03/06/17 03/06/17 03/06/17 15:30 16:40 17:46 WBC RBC Hgb Hct RDW Lymph % (Auto) [place] % (Auto) Eos % (Auto) Lymph # Seg Neutrophils % Seg Neuts % (Manual) Lymphocytes % (Manual) Monocytes % (Manual) Lymphocytes # (Manual) POC ABG pH Sodium 136 L Potassium Chloride 90.2 L Carbon Dioxide 20 L BUN 84 H Creatinine 9.0 H Glucose 571 H* POC Glucose 413 H 332 H Lactic Acid Calcium 8.3 L Magnesium C-Reactive Protein Albumin 03/06/17 03/06/17 03/06/17 18:42 19:33 23:20 WBC RBC Hgb Hct RDW Lymph % (Auto) [place] % (Auto) Eos % (Auto) Lymph # Seg Neutrophils % Seg Neuts % (Manual) Lymphocytes % (Manual) Monocytes % (Manual) Lymphocytes # (Manual) POC ABG pH Sodium Potassium Chloride Carbon Dioxide BUN Creatinine Glucose POC Glucose 222 H 142 H 148 H Lactic Acid Calcium Magnesium C-Reactive Protein Albumin 03/07/17 03/07/17 03/07/17 00:05 00:58 02:05 WBC RBC Hgb Hct RDW Lymph % (Auto) [place] % (Auto) Eos % (Auto) Lymph # Seg Neutrophils % Seg Neuts % (Manual) Lymphocytes % (Manual) Monocytes % (Manual) Lymphocytes # (Manual) POC ABG pH Sodium Potassium Chloride Carbon Dioxide BUN Creatinine Glucose POC Glucose 205 H 259 H 255 H Lactic Acid Calcium Magnesium C-Reactive Protein Albumin 03/07/17 03/07/17 03/07/17 02:45 03:45 03:45 WBC RBC Hgb Hct RDW 16.7 H Lymph % (Auto) [place] % (Auto) Eos % (Auto) Lymph # Seg Neutrophils % Seg Neuts % (Manual) 79.0 H Lymphocytes % (Manual) 5.0 L Monocytes % (Manual) 8.0 H Lymphocytes # (Manual) 0.4 L POC ABG pH Sodium Potassium Chloride 95.3 L Carbon Dioxide BUN 41 H Creatinine 5.3 H Glucose 179 H POC Glucose Lactic Acid 2.60 H* Calcium Magnesium C-Reactive Protein Albumin 03/07/17 03/07/17 03/07/17 03:45 03:53 05:09 WBC RBC Hgb Hct RDW Lymph % (Auto) [place] % (Auto) Eos % (Auto) Lymph # Seg Neutrophils % Seg Neuts % (Manual) Lymphocytes % (Manual) Monocytes % (Manual) Lymphocytes # (Manual) POC ABG pH Sodium Potassium Chloride Carbon Dioxide BUN Creatinine Glucose POC Glucose 187 H 130 H Lactic Acid Calcium Magnesium 1.60 L C-Reactive Protein Albumin 03/07/17 03/07/17 03/07/17 07:54 10:05 10:29 WBC RBC Hgb Hct RDW Lymph % (Auto) [place] % (Auto) Eos % (Auto) Lymph # Seg Neutrophils % Seg Neuts % (Manual) Lymphocytes % (Manual) Monocytes % (Manual) Lymphocytes # (Manual) POC ABG pH Sodium Potassium Chloride 94.0 L Carbon Dioxide BUN 45 H Creatinine 6.3 H Glucose 206 H POC Glucose 120 H 126 H Lactic Acid Calcium Magnesium C-Reactive Protein Albumin 03/07/17 03/07/17 03/07/17 13:02 16:46 21:57 WBC RBC Hgb Hct RDW Lymph % (Auto) [place] % (Auto) Eos % (Auto) Lymph # Seg Neutrophils % Seg Neuts % (Manual) Lymphocytes % (Manual) Monocytes % (Manual) Lymphocytes # (Manual) POC ABG pH Sodium Potassium Chloride Carbon Dioxide BUN Creatinine Glucose POC Glucose 147 H 216 H 146 H Lactic Acid Calcium Magnesium C-Reactive Protein Albumin 03/07/17 03/08/17 03/08/17 Unknown 00:08 10:55 WBC RBC Hgb Hct RDW Lymph % (Auto) [place] % (Auto) Eos % (Auto) Lymph # Seg Neutrophils % Seg Neuts % (Manual) Lymphocytes % (Manual) Monocytes % (Manual) Lymphocytes # (Manual) POC ABG pH Sodium Potassium Chloride Carbon Dioxide BUN Creatinine Glucose POC Glucose 132 H 323 H Lactic Acid Calcium Magnesium C-Reactive Protein 11.40 H Albumin 03/08/17 03/08/17 03/08/17 15:30 15:30 19:36 WBC RBC 3.39 L Hgb 10.4 L Hct 31.5 L RDW 17.0 H Lymph % (Auto) 12.4 L [place] % (Auto) Eos % (Auto) Lymph # 0.6 L Seg Neutrophils % 79.3 H Seg Neuts % (Manual) Lymphocytes % (Manual) Monocytes % (Manual) Lymphocytes # (Manual) POC ABG pH Sodium 136 L Potassium Chloride 93.4 L Carbon Dioxide BUN 45 H Creatinine 5.4 H Glucose 216 H POC Glucose 173 H Lactic Acid Calcium 8.3 L Magnesium C-Reactive Protein Albumin 03/08/17 03/09/17 03/09/17 23:49 04:13 04:13 WBC 4.2 L RBC Hgb 11.7 L Hct RDW 17.3 H Lymph % (Auto) [place] % (Auto) 10.5 H Eos % (Auto) Lymph # 0.6 L Seg Neutrophils % 73.5 H Seg Neuts % (Manual) Lymphocytes % (Manual) Monocytes % (Manual) Lymphocytes # (Manual) POC ABG pH Sodium 136 L Potassium Chloride 93.7 L Carbon Dioxide 31 H BUN 31 H Creatinine 4.7 H Glucose 158 H POC Glucose 259 H Lactic Acid Calcium Magnesium C-Reactive Protein Albumin 03/09/17 03/09/17 03/09/17 11:06 17:32 22:21 WBC RBC Hgb Hct RDW Lymph % (Auto) [place] % (Auto) Eos % (Auto) Lymph # Seg Neutrophils % Seg Neuts % (Manual) Lymphocytes % (Manual) Monocytes % (Manual) Lymphocytes # (Manual) POC ABG pH Sodium Potassium Chloride Carbon Dioxide BUN Creatinine Glucose POC Glucose 314 H 170 H < 40 L Lactic Acid Calcium Magnesium C-Reactive Protein Albumin 03/10/17 03/10/17 03/10/17 05:24 05:24 07:50 WBC 4.4 L RBC 3.59 L Hgb 10.8 L Hct 33.6 L RDW 16.8 H Lymph % (Auto) [place] % (Auto) 11.9 H Eos % (Auto) 4.6 H Lymph # 0.7 L Seg Neutrophils % Seg Neuts % (Manual) Lymphocytes % (Manual) Monocytes % (Manual) Lymphocytes # (Manual) POC ABG pH Sodium Potassium Chloride 94.4 L Carbon Dioxide BUN 46 H Creatinine 6.0 H Glucose POC Glucose 155 H Lactic Acid Calcium 8.1 L Magnesium C-Reactive Protein Albumin 03/10/17 03/10/17 03/11/17 16:22 21:51 04:03 WBC RBC Hgb Hct RDW Lymph % (Auto) [place] % (Auto) Eos % (Auto) Lymph # Seg Neutrophils % Seg Neuts % (Manual) Lymphocytes % (Manual) Monocytes % (Manual) Lymphocytes # (Manual) POC ABG pH Sodium Potassium Chloride Carbon Dioxide BUN Creatinine Glucose POC Glucose 354 H 442 H 292 H Lactic Acid Calcium Magnesium C-Reactive Protein Albumin 03/11/17 03/11/17 03/11/17 04:35 04:35 08:16 WBC 3.3 L RBC Hgb 11.1 L Hct 35.0 L RDW 16.8 H Lymph % (Auto) [place] % (Auto) Eos % (Auto) Lymph # Seg Neutrophils % Seg Neuts % (Manual) 73.0 H Lymphocytes % (Manual) Monocytes % (Manual) Lymphocytes # (Manual) 0.6 L POC ABG pH Sodium 135 L Potassium Chloride 91.5 L Carbon Dioxide BUN 33 H Creatinine 4.6 H Glucose 274 H POC Glucose 474 H Lactic Acid Calcium 8.2 L Magnesium C-Reactive Protein Albumin 03/11/17 03/11/17 03/12/17 13:01 21:43 05:58 WBC RBC Hgb 10.5 L Hct 33.3 L RDW Lymph % (Auto) [place] % (Auto) Eos % (Auto) Lymph # Seg Neutrophils % Seg Neuts % (Manual) Lymphocytes % (Manual) Monocytes % (Manual) Lymphocytes # (Manual) POC ABG pH Sodium Potassium Chloride Carbon Dioxide BUN Creatinine Glucose POC Glucose 356 H 45 L Lactic Acid Calcium Magnesium C-Reactive Protein Albumin 03/12/17 03/12/17 03/12/17 05:58 08:44 16:02 WBC RBC Hgb Hct RDW Lymph % (Auto) [place] % (Auto) Eos % (Auto) Lymph # Seg Neutrophils % Seg Neuts % (Manual) Lymphocytes % (Manual) Monocytes % (Manual) Lymphocytes # (Manual) POC ABG pH Sodium Potassium Chloride 94.2 L Carbon Dioxide BUN 49 H Creatinine 7.0 H D Glucose 200 H POC Glucose 282 H 303 H Lactic Acid Calcium 8.2 L Magnesium C-Reactive Protein Albumin 03/12/17 03/12/17 03/13/17 18:12 23:29 05:45 WBC 3.7 L RBC 3.56 L Hgb 10.5 L Hct 33.1 L RDW 16.1 H Lymph % (Auto) [place] % (Auto) Eos % (Auto) Lymph # Seg Neutrophils % Seg Neuts % (Manual) Lymphocytes % (Manual) Monocytes % (Manual) Lymphocytes # (Manual) POC ABG pH Sodium Potassium Chloride Carbon Dioxide BUN Creatinine Glucose POC Glucose 332 H 312 H Lactic Acid Calcium Magnesium C-Reactive Protein Albumin 03/13/17 03/13/17 03/13/17 05:45 07:30 11:53 WBC RBC Hgb Hct RDW Lymph % (Auto) [place] % (Auto) Eos % (Auto) Lymph # Seg Neutrophils % Seg Neuts % (Manual) Lymphocytes % (Manual) Monocytes % (Manual) Lymphocytes # (Manual) POC ABG pH Sodium 136 L Potassium Chloride 91.5 L Carbon Dioxide BUN 30 H Creatinine 5.2 H Glucose 263 H POC Glucose 330 H 283 H Lactic Acid Calcium Magnesium C-Reactive Protein Albumin 3.4 L 03/13/17 03/13/17 03/14/17 16:15 22:22 03:47 WBC RBC Hgb Hct RDW Lymph % (Auto) [place] % (Auto) Eos % (Auto) Lymph # Seg Neutrophils % Seg Neuts % (Manual) Lymphocytes % (Manual) Monocytes % (Manual) Lymphocytes # (Manual) POC ABG pH Sodium 134 L Potassium Chloride 92.4 L Carbon Dioxide BUN 38 H Creatinine 5.9 H Glucose 136 H POC Glucose 192 H 63 L Lactic Acid Calcium Magnesium C-Reactive Protein Albumin 03/14/17 06:24 WBC RBC Hgb Hct RDW Lymph % (Auto) [place] % (Auto) Eos % (Auto) Lymph # Seg Neutrophils % Seg Neuts % (Manual) Lymphocytes % (Manual) Monocytes % (Manual) Lymphocytes # (Manual) POC ABG pH Sodium Potassium Chloride Carbon Dioxide BUN Creatinine Glucose POC Glucose 185 H Lactic Acid Calcium Magnesium C-Reactive Protein Albumin
--- NOTE | 2017-03-14 14:25 | Post Anesthesia Evaluation ---
- Post Anesthesia Evaluation Patient Participated: Yes Airway Patent: Yes Stable Respiratory Function: Yes Nausea/Vomiting: No Temp > 96.8F: Yes Pain Manageable: Yes Adequeate Hydration: Yes Anesthesia Complications: No Block Receding Appropriately: Not Applicable Patient on Ventilator: No
[2017-03-14] MEDS ORDERED: SIMPLE SYRUP FEEDTUBE PRN ×4 (15:07→15:15)
[2017-03-14] MEDS ORDERED: PANCREAZE DR 10,500 UNIT FEEDTUBE PRN ×2 (15:07→15:15)
[2017-03-14] MEDS ORDERED: SODIUM BICARBONATE FEEDTUBE PRN ×2 (15:07→15:15)
[2017-03-14] MEDS: REMERON PO SCH (21:28)
[2017-03-15] MEDS: COMBIGAN 0.2-0.5% OD SCH ×2 (05:22→12:01)
[2017-03-15] MEDS: APRESOLINE IV PRN (05:22)
[2017-03-15 07:16] LABS: Hematocrit 32.8 % (35.5-45.6); Hemoglobin 7.1 gm/dl (11.8-15.2)
[2017-03-15 07:28] LABS: BUN/Creatinine Ratio 5.11; Calcium 7.8 mg/dL (8.4-10.2); Potassium 5.2 mmol/L (3.6-5.0)
[2017-03-15] MEDS: NOVOLOG SUB-Q SCH ×3 (07:37→18:54)
--- NOTE | 2017-03-15 08:46 | Gastroenterology Progress Note ---
Assessment and Plan GI: s/p peg without obvious complications - ok to use as needed - will sign off, call if needed Subjective Date of service: 03/15/17 Principal diagnosis: DKA; hematemesis Interval history: - no GI complaints overnight Objective - Constitutional Vitals: Temp Pulse Resp BP Pulse Ox 98.7 F 87 16 114/57 95 03/15/17 08:28 03/15/17 08:28 03/15/17 08:28 03/15/17 08:28 03/15/17 08:28 General appearance: no acute distress - Respiratory Respiratory: bilateral: CTA - Cardiovascular Rhythm: regular Heart Sounds: Present: S1 & S2 - Gastrointestinal General gastrointestinal: Present: soft, non-tender (peg site intact) - Labs CBC & Chem 7: 03/15/17 06:36 03/15/17 06:36 Labs: Laboratory Results - last 24 hr 03/14/17 03/15/17 03/15/17 21:04 06:36 06:36 Hgb 7.1 L D Hct 32.8 L Sodium 130 L Potassium 5.2 H Chloride 89.0 L Carbon Dioxide 24 Anion Gap 22 BUN 22 H Creatinine 4.3 H Estimated GFR 17 BUN/Creatinine Ratio 5.11 Glucose 379 H POC Glucose 203 H Calcium 7.8 L 03/15/17 06:58 Hgb Hct Sodium Potassium Chloride Carbon Dioxide Anion Gap BUN Creatinine Estimated GFR BUN/Creatinine Ratio Glucose POC Glucose 368 H Calcium
[2017-03-15] MEDS ORDERED: MORPHINE IV PRN (09:30)
--- NOTE | 2017-03-15 11:18 | Progress Note ---
Assessment and Plan Assessment and plan: DKA - Managed according to DKA protocol and resolved Diabetes mellitus type 2 - Insulin sliding scale insulin - Accu check End-stage and is on hemodialysis - Nephrology is following - on hemodialysis as scheduled Hematemesis - No bleeding after admission - GI consult appreciated - Recommend H2 rico, monitor H&H, no EGD unless the patient has overt bleeding Anemia - Hemoglobin decreased from 10.5 to 7.1 - Will check H/H at noon - will transfuse him if hemoglobin dropped to 7.1 Speech evaluated him and not a candidate for PO feeding - PEG was placed yesterday Dementia - Supportive care Hypertension - Controlled - Continue the current medications and dialysis DVT prophylaxis - SCD because of his GI bleed Disposition - If H/H stable will transfer to [facility]. History Interval history: Patient was seen and evaluated this morning, Patient is is complaining abdominal pain. Patient has dementia. PEG was placed yesterday. Hospitalist Physical - Physical exam Narrative exam: Not in cardiopulmonary distress. The patient appeared well nourished and normally developed. Vital signs as documented. Head exam is unremarkable. No scleral icterus . Neck is without jugular venous distension, thyromegaly, or carotid bruits. Lungs are clear to auscultation. Cardiac exam reveals regular rate and Rhythm. Abdominal exam reveals PEG in place no erythema or tenderness. Extremities are nonedematous and both femoral and pedal pulses are normal. [employer]AL: Patient has dementia. - Constitutional Vitals: Temp Pulse Resp BP Pulse Ox 98.7 F 87 16 114/57 95 03/15/17 08:28 03/15/17 08:28 03/15/17 08:28 03/15/17 08:28 03/15/17 08:28 General appearance: Present: mild distress, cachectic, other (minimally communicative) Results - Labs CBC & Chem 7: 03/15/17 06:36 03/15/17 06:36 Labs: Laboratory Last Values WBC 3.7 K/mm3 (4.5-11.0) L 03/13/17 05:45 RBC 3.56 M/mm3 (3.65-5.03) L 03/13/17 05:45 Hgb 7.1 gm/dl (11.8-15.2) L D 03/15/17 06:36 Hct 32.8 % (35.5-45.6) L 03/15/17 06:36 MCV 93 fl (84-94) 03/13/17 05:45 MCH 30 pg (28-32) 03/13/17 05:45 MCHC 32 % (32-34) 03/13/17 05:45 RDW 16.1 % (13.2-15.2) H 03/13/17 05:45 Plt Count 247 K/mm3 (140-440) 03/13/17 05:45 Lymph % (Auto) 16.3 % (13.4-35.0) 03/10/17 05:24 [place] % (Auto) Database Report Writer 03/11/17 04:35 Eos % (Auto) 4.6 % (0.0-4.3) H 03/10/17 05:24 Baso % (Auto) 0.9 % (0.0-1.8) 03/10/17 05:24 Lymph # 0.7 K/mm3 (1.2-5.4) L 03/10/17 05:24 [place] # 0.5 K/mm3 (0.0-0.8) 03/10/17 05:24 Eos # 0.2 K/mm3 (0.0-0.4) 03/10/17 05:24 Baso # 0.0 K/mm3 (0.0-0.1) 03/10/17 05:24 Add Manual Diff Complete 03/11/17 04:35 Total Counted 100 03/11/17 04:35 Seg Neutrophils % 66.3 % (40.0-70.0) 03/10/17 05:24 Seg Neuts % (Manual) 73.0 % (40.0-70.0) H 03/11/17 04:35 Band Neutrophils % 0 % 03/11/17 04:35 Lymphocytes % (Manual) 18.0 % (13.4-35.0) 03/11/17 04:35 Reactive Lymphs % (Man) 0 % 03/11/17 04:35 Monocytes % (Manual) 5.0 % (0.0-7.3) 03/11/17 04:35 Eosinophils % (Manual) 4.0 % (0.0-4.3) 03/11/17 04:35 Basophils % (Manual) 0 % (0.0-1.8) 03/11/17 04:35 Metamyelocytes % 0 % 03/11/17 04:35 Myelocytes % 0 % 03/11/17 04:35 Promyelocytes % 0 % 03/11/17 04:35 Blast Cells % 0 % 03/11/17 04:35 Nucleated RBC % Not Reportable 03/11/17 04:35 Seg Neutrophils # 2.9 K/mm3 (1.8-7.7) 03/10/17 05:24 Seg Neutrophils # Man 2.4 K/mm3 (1.8-7.7) 03/11/17 04:35 Band Neutrophils # 0.0 K/mm3 03/11/17 04:35 Lymphocytes # (Manual) 0.6 K/mm3 (1.2-5.4) L 03/11/17 04:35 Abs React Lymphs (Man) 0.0 K/mm3 03/11/17 04:35 Monocytes # (Manual) 0.2 K/mm3 (0.0-0.8) 03/11/17 04:35 Eosinophils # (Manual) 0.1 K/mm3 (0.0-0.4) 03/11/17 04:35 Basophils # (Manual) 0.0 K/mm3 (0.0-0.1) 03/11/17 04:35 Metamyelocytes # 0.0 K/mm3 03/11/17 04:35 Myelocytes # 0.0 K/mm3 03/11/17 04:35 Promyelocytes # 0.0 K/mm3 03/11/17 04:35 Blast Cells # 0.0 K/mm3 03/11/17 04:35 WBC Morphology Not Reportable 03/11/17 04:35 Hypersegmented Neuts Not Reportable 03/11/17 04:35 Hyposegmented Neuts Not Reportable 03/11/17 04:35 Hypogranular Neuts Not Reportable 03/11/17 04:35 Smudge Cells Not Reportable 03/11/17 04:35 Toxic Granulation Not Reportable 03/11/17 04:35 Toxic Vacuolation Not Reportable 03/11/17 04:35 Dohle Bodies Not Reportable 03/11/17 04:35 Pelger-Huet Anomaly Not Reportable 03/11/17 04:35 Jose Rods Not Reportable 03/11/17 04:35 Platelet Estimate Consistent w auto 03/11/17 04:35 Clumped Platelets Not Reportable 03/11/17 04:35 Plt Clumps, EDTA Not Reportable 03/11/17 04:35 Large Platelets Not Reportable 03/11/17 04:35 Giant Platelets Not Reportable 03/11/17 04:35 Platelet Satelliting Not Reportable 03/11/17 04:35 Plt Morphology Comment Not Reportable 03/11/17 04:35 RBC Morphology Not Reportable 03/11/17 04:35 Dimorphic RBCs Not Reportable 03/11/17 04:35 Polychromasia Not Reportable 03/11/17 04:35 Hypochromasia Not Reportable 03/11/17 04:35 Poikilocytosis Not Reportable 03/11/17 04:35 Anisocytosis Not Reportable 03/11/17 04:35 Microcytosis Not Reportable 03/11/17 04:35 Macrocytosis Not Reportable 03/11/17 04:35 Spherocytes Not Reportable 03/11/17 04:35 Pappenheimer Bodies Not Reportable 03/11/17 04:35 Sickle Cells Not Reportable 03/11/17 04:35 Target Cells Not Reportable 03/11/17 04:35 Tear Drop Cells Not Reportable 03/11/17 04:35 Ovalocytes Not Reportable 03/11/17 04:35 Helmet Cells Not Reportable 03/11/17 04:35 Bower-Phenix Bodies Not Reportable 03/11/17 04:35 [place] Rings Not Reportable 03/11/17 04:35 [place] Cells Not Reportable 03/11/17 04:35 Bite Cells Not Reportable 03/11/17 04:35 Crenated Cell Not Reportable 03/11/17 04:35 Elliptocytes Not Reportable 03/11/17 04:35 Acanthocytes (Spur) Not Reportable 03/11/17 04:35 Rouleaux Not Reportable 03/11/17 04:35 Hemoglobin C Crystals Not Reportable 03/11/17 04:35 Schistocytes Not Reportable 03/11/17 04:35 Malaria parasites Not Reportable 03/11/17 04:35 [place] Bodies Not Reportable 03/11/17 04:35 Hem Pathologist Commnt No 03/11/17 04:35 PT 12.7 Sec. (12.2-14.9) 03/13/17 05:45 INR 0.96 (0.87-1.13) 03/13/17 05:45 APTT 41.5 Sec. (24.2-36.6) H 03/06/17 05:35 POC ABG pH 7.411 (7.35-7.45) 03/13/17 09:39 POC ABG pCO2 40.2 (35-45) 03/13/17 09:39 POC ABG pO2 86 (80-105) 03/13/17 09:39 POC ABG HCO3 25.6 03/13/17 09:39 POC ABG Total CO2 27 03/13/17 09:39 POC ABG O2 Sat 97 03/13/17 09:39 POC ABG Base Excess 1 03/13/17 09:39 FiO2 21 % 03/13/17 09:39 Sodium 130 mmol/L (137-145) L 03/15/17 06:36 Potassium 5.2 mmol/L (3.6-5.0) H 03/15/17 06:36 Chloride 89.0 mmol/L (98-107) L 03/15/17 06:36 Carbon Dioxide 24 mmol/L (22-30) 03/15/17 06:36 Anion Gap 22 mmol/L 03/15/17 06:36 BUN 22 mg/dL (9-20) H 03/15/17 06:36 Creatinine 4.3 mg/dL (0.8-1.5) H 03/15/17 06:36 Estimated GFR 17 ml/min 03/15/17 06:36 BUN/Creatinine Ratio 5.11 % 03/15/17 06:36 Glucose 379 mg/dL (75-100) H 03/15/17 06:36 POC Glucose 368 (70-105) H 03/15/17 06:58 Hemoglobin A1c 10.1 % (4-6) H 03/06/17 05:35 Osmolality 373 Mosm/kg 03/06/17 08:04 Lactic Acid 1.30 mmol/L (0.7-2.0) 03/08/17 15:30 Calcium 7.8 mg/dL (8.4-10.2) L 03/15/17 06:36 Phosphorus 4.40 mg/dL (2.5-4.5) D 03/07/17 03:45 Magnesium 1.80 mg/dL (1.7-2.3) 03/09/17 04:13 Total Bilirubin 0.40 mg/dL (0.1-1.2) 03/13/17 05:45 AST 11 units/L (5-40) 03/13/17 05:45 ALT 8 units/L (7-56) 03/13/17 05:45 Alkaline Phosphatase 128 units/L (35-129) 03/13/17 05:45 C-Reactive Protein 11.40 mg/dL (0.00-1.30) H 03/07/17 Unknown Total Protein 6.4 g/dL (6.3-8.2) 03/13/17 05:45 Albumin 3.4 g/dL (3.9-5) L 03/13/17 05:45 Albumin/Globulin Ratio 1.1 % 03/13/17 05:45 Triglycerides 162 mg/dL (2-149) H 03/06/17 10:09 Cholesterol 159 mg/dL (50-199) 03/06/17 10:09 LDL Cholesterol Direct 77 mg/dL (50-130) 03/06/17 10:09 HDL Cholesterol 50 mg/dL (40-59) 03/06/17 10:09 Cholesterol/HDL Ratio 3.18 % 03/06/17 10:09 Lipase 42 units/L (13-60) 03/06/17 05:35 Blood Type O POSITIVE 03/06/17 05:45 Antibody Screen TNR 03/06/17 05:45 BALDEV Antibody Screen Negative 03/06/17 05:45 Hemoglobin decreased from 10.5 on 03/13/2017 and 7.1 today
[2017-03-15] MEDS: LONITEN PO SCH (11:30)
[2017-03-15] MEDS: NORVASC PO SCH (11:30)
[2017-03-15] MEDS: HEPARIN SUB-Q SCH ×2 (11:30→22:23)
[2017-03-15] MEDS: LEVEMIR SUB-Q SCH (11:30)
[2017-03-15] MEDS: LOPRESSOR PO SCH ×2 (11:30→22:23)
[2017-03-15] MEDS: COZAAR PO SCH (11:30)
[2017-03-15] MEDS: PEPCID PO SCH (11:30)
--- NOTE | 2017-03-15 11:35 | Progress Note ---
Subjective Principal diagnosis: DKA; hematemesis Interval history: Patient was seen today for follow-up on multiple renal related issues Events noted, potassium has been noted to be mildly elevated No acute distress Vitals labs intake output medications reviewed Social history: Reviewed Family history: Reviewed Physical examination Vitals: Reviewed HEENT: Oral mucosa moist Neck: Supple no JVD Chest: Clear to auscultation no crackles Heart: Regular rate and rhythm S1 and S2 heard Abdomen: Soft nontender bowel sounds present Extremity: Mild edema dry skin Dermatology; dry skin Psychiatry: No evidence of agitation or aggression Assessment and plan; End-stage renal disease in a patient who has been dialysis dependent, currently on dialysis Friday and Friday Mild hyperkalemia to follow, would like to give Kayexalate 30 g 1 Accelerated hypertension requires close monitoring and follow-up Diabetes requires good control patient does have history of long-standing poorly controlled diabetes Monitor dialysis related labs Diabetic ketoacidosis patient has had similar admissions in the past very poor compliant high mortality risk GI bleed hemodynamically stable Overall prognosis guarded to poor due to noncompliance We'll continue to follow and make recommendation from renal standpoint Objective - Vital Signs Vital signs: Vital Signs - 12hr 03/15/17 03/15/17 03/15/17 00:00 04:00 06:00 Temperature 98.1 F 98.3 F 98.3 F Pulse Rate [ 66 86 87 Right] Respiratory 18 18 18 Rate Blood Pressure 165/72 207/88 131/62 [Right Arm] O2 Sat by Pulse 98 97 98 Oximetry 03/15/17 08:28 Temperature 98.7 F Pulse Rate [ 87 Right] Respiratory 16 Rate Blood Pressure 114/57 [Right Arm] O2 Sat by Pulse 95 Oximetry - Lab 03/15/17 06:36 03/15/17 06:36 Most recent lab results Calcium 7.8 mg/dL (8.4-10.2) L 03/15/17 06:36 Phosphorus 4.40 mg/dL (2.5-4.5) D 03/07/17 03:45 Magnesium 1.80 mg/dL (1.7-2.3) 03/09/17 04:13
[2017-03-15] MEDS ORDERED: KIONEX PO ONE (12:00)
--- NOTE | 2017-03-15 18:18 | Progress Note ---
Assessment and Plan Patient sleeping at this time. No acute respiratory distress. O2 saturation 97% on room air. DKA improved. - Patient Problems (1) DKA (diabetic ketoacidoses) Current Visit: Yes Status: Acute Qualifiers: Diabetes mellitus type: D Diabetes mellitus complication detail: D Plan to address problem: Improved. Patient is on S/C Insulinn. Management as per primary care. (2) Acute on chronic kidney failure Current Visit: Yes Status: Acute Qualifiers: Acute renal failure type: A Chronic kidney disease stage: C Plan to address problem: Management as per nephrology. (3) Dehydration Current Visit: Yes Status: Acute Plan to address problem: Improved. Patient is on I/V fluids NSS 50 ml/hr. (4) Acute encephalopathy Current Visit: Yes Status: Acute Plan to address problem: Appears slightly improved. (5) Shortness of breath Current Visit: Yes Status: Acute Plan to address problem: Improved. O2 saturation 100% on room air. Shortness of breath likely from DKA and metabolic acidosis.which is improved. . Subjective Date of service: 03/15/17 Principal diagnosis: DKA; hematemesis Interval history: Patient sleeping at this time. No acute respiratory distress. O2 saturation 97% on room air. DKA improved. Objective Vital Signs - 12hr 03/15/17 03/15/17 03/15/17 08:28 10:00 11:30 Temperature 98.7 F Pulse Rate 92 H 92 H Pulse Rate [ 87 Right] Respiratory 16 Rate Blood Pressure 134/62 Blood Pressure 114/57 [Right Arm] O2 Sat by Pulse 95 97 Oximetry 03/15/17 03/15/17 03/15/17 11:36 12:29 17:04 Temperature 98.2 F 98.4 F Pulse Rate Pulse Rate [ 92 H 88 Right] Respiratory 20 16 16 Rate Blood Pressure Blood Pressure 135/62 93/52 [Right Arm] O2 Sat by Pulse 97 97 Oximetry Constitutional: no acute distress, other (somnolent) Eyes: non-icteric ENT: oropharynx moist Neck: supple, no lymphadenopathy Effort: mildly labored Ascultation: Bilateral: diminished breath sounds, rales (scant in bases) Cardiovascular: regular rate and rhythm Gastrointestinal: normoactive bowel sounds, soft, non-tender, non-distended Integumentary: normal Extremities: no cyanosis, no edema, pulses normal, no ischemia or petechiae, other (chronic lichenification changes to skin in lower extremities) Neurologic: pupils equal and round, other (Post prior CVA hemiparesis) Psychiatric: other (unable to assess) CBC and BMP: 03/15/17 06:36 03/15/17 06:36 ABG, PT/INR, D-dimer: ABG POC ABG pH 7.411 (7.35-7.45) 03/13/17 09:39 POC ABG pCO2 40.2 (35-45) 03/13/17 09:39 POC ABG pO2 86 (80-105) 03/13/17 09:39 POC ABG HCO3 25.6 03/13/17 09:39 POC ABG Total CO2 27 03/13/17 09:39 POC ABG O2 Sat 97 03/13/17 09:39 PT/INR, D-dimer PT 12.7 Sec. (12.2-14.9) 03/13/17 05:45 INR 0.96 (0.87-1.13) 03/13/17 05:45 Abnormal lab findings: Abnormal Labs 03/06/17 03/06/17 03/06/17 12:23 13:03 13:12 WBC RBC Hgb Hct RDW Lymph % (Auto) [place] % (Auto) Eos % (Auto) Lymph # Seg Neutrophils % Seg Neuts % (Manual) Lymphocytes % (Manual) Monocytes % (Manual) Lymphocytes # (Manual) POC ABG pH 7.300 L Sodium 133 L 132 L Potassium 6.2 H* D Chloride 86.1 L 87.9 L Carbon Dioxide 15 L 16 L BUN 83 H 84 H Creatinine 9.1 H 9.1 H Glucose 820 H* 730 H* POC Glucose Lactic Acid Calcium 8.3 L 8.0 L Magnesium C-Reactive Protein Albumin 03/06/17 03/06/17 03/06/17 15:30 16:40 17:46 WBC RBC Hgb Hct RDW Lymph % (Auto) [place] % (Auto) Eos % (Auto) Lymph # Seg Neutrophils % Seg Neuts % (Manual) Lymphocytes % (Manual) Monocytes % (Manual) Lymphocytes # (Manual) POC ABG pH Sodium 136 L Potassium Chloride 90.2 L Carbon Dioxide 20 L BUN 84 H Creatinine 9.0 H Glucose 571 H* POC Glucose 413 H 332 H Lactic Acid Calcium 8.3 L Magnesium C-Reactive Protein Albumin 03/06/17 03/06/17 03/06/17 18:42 19:33 23:20 WBC RBC Hgb Hct RDW Lymph % (Auto) [place] % (Auto) Eos % (Auto) Lymph # Seg Neutrophils % Seg Neuts % (Manual) Lymphocytes % (Manual) Monocytes % (Manual) Lymphocytes # (Manual) POC ABG pH Sodium Potassium Chloride Carbon Dioxide BUN Creatinine Glucose POC Glucose 222 H 142 H 148 H Lactic Acid Calcium Magnesium C-Reactive Protein Albumin 03/07/17 03/07/17 03/07/17 00:05 00:58 02:05 WBC RBC Hgb Hct RDW Lymph % (Auto) [place] % (Auto) Eos % (Auto) Lymph # Seg Neutrophils % Seg Neuts % (Manual) Lymphocytes % (Manual) Monocytes % (Manual) Lymphocytes # (Manual) POC ABG pH Sodium Potassium Chloride Carbon Dioxide BUN Creatinine Glucose POC Glucose 205 H 259 H 255 H Lactic Acid Calcium Magnesium C-Reactive Protein Albumin 03/07/17 03/07/17 03/07/17 02:45 03:45 03:45 WBC RBC Hgb Hct RDW 16.7 H Lymph % (Auto) [place] % (Auto) Eos % (Auto) Lymph # Seg Neutrophils % Seg Neuts % (Manual) 79.0 H Lymphocytes % (Manual) 5.0 L Monocytes % (Manual) 8.0 H Lymphocytes # (Manual) 0.4 L POC ABG pH Sodium Potassium Chloride 95.3 L Carbon Dioxide BUN 41 H Creatinine 5.3 H Glucose 179 H POC Glucose Lactic Acid 2.60 H* Calcium Magnesium C-Reactive Protein Albumin 03/07/17 03/07/17 03/07/17 03:45 03:53 05:09 WBC RBC Hgb Hct RDW Lymph % (Auto) [place] % (Auto) Eos % (Auto) Lymph # Seg Neutrophils % Seg Neuts % (Manual) Lymphocytes % (Manual) Monocytes % (Manual) Lymphocytes # (Manual) POC ABG pH Sodium Potassium Chloride Carbon Dioxide BUN Creatinine Glucose POC Glucose 187 H 130 H Lactic Acid Calcium Magnesium 1.60 L C-Reactive Protein Albumin 03/07/17 03/07/17 03/07/17 07:54 10:05 10:29 WBC RBC Hgb Hct RDW Lymph % (Auto) [place] % (Auto) Eos % (Auto) Lymph # Seg Neutrophils % Seg Neuts % (Manual) Lymphocytes % (Manual) Monocytes % (Manual) Lymphocytes # (Manual) POC ABG pH Sodium Potassium Chloride 94.0 L Carbon Dioxide BUN 45 H Creatinine 6.3 H Glucose 206 H POC Glucose 120 H 126 H Lactic Acid Calcium Magnesium C-Reactive Protein Albumin 03/07/17 03/07/17 03/07/17 13:02 16:46 21:57 WBC RBC Hgb Hct RDW Lymph % (Auto) [place] % (Auto) Eos % (Auto) Lymph # Seg Neutrophils % Seg Neuts % (Manual) Lymphocytes % (Manual) Monocytes % (Manual) Lymphocytes # (Manual) POC ABG pH Sodium Potassium Chloride Carbon Dioxide BUN Creatinine Glucose POC Glucose 147 H 216 H 146 H Lactic Acid Calcium Magnesium C-Reactive Protein Albumin 03/07/17 03/08/17 03/08/17 Unknown 00:08 10:55 WBC RBC Hgb Hct RDW Lymph % (Auto) [place] % (Auto) Eos % (Auto) Lymph # Seg Neutrophils % Seg Neuts % (Manual) Lymphocytes % (Manual) Monocytes % (Manual) Lymphocytes # (Manual) POC ABG pH Sodium Potassium Chloride Carbon Dioxide BUN Creatinine Glucose POC Glucose 132 H 323 H Lactic Acid Calcium Magnesium C-Reactive Protein 11.40 H Albumin 03/08/17 03/08/17 03/08/17 15:30 15:30 19:36 WBC RBC 3.39 L Hgb 10.4 L Hct 31.5 L RDW 17.0 H Lymph % (Auto) 12.4 L [place] % (Auto) Eos % (Auto) Lymph # 0.6 L Seg Neutrophils % 79.3 H Seg Neuts % (Manual) Lymphocytes % (Manual) Monocytes % (Manual) Lymphocytes # (Manual) POC ABG pH Sodium 136 L Potassium Chloride 93.4 L Carbon Dioxide BUN 45 H Creatinine 5.4 H Glucose 216 H POC Glucose 173 H Lactic Acid Calcium 8.3 L Magnesium C-Reactive Protein Albumin 03/08/17 03/09/17 03/09/17 23:49 04:13 04:13 WBC 4.2 L RBC Hgb 11.7 L Hct RDW 17.3 H Lymph % (Auto) [place] % (Auto) 10.5 H Eos % (Auto) Lymph # 0.6 L Seg Neutrophils % 73.5 H Seg Neuts % (Manual) Lymphocytes % (Manual) Monocytes % (Manual) Lymphocytes # (Manual) POC ABG pH Sodium 136 L Potassium Chloride 93.7 L Carbon Dioxide 31 H BUN 31 H Creatinine 4.7 H Glucose 158 H POC Glucose 259 H Lactic Acid Calcium Magnesium C-Reactive Protein Albumin 03/09/17 03/09/17 03/09/17 11:06 17:32 22:21 WBC RBC Hgb Hct RDW Lymph % (Auto) [place] % (Auto) Eos % (Auto) Lymph # Seg Neutrophils % Seg Neuts % (Manual) Lymphocytes % (Manual) Monocytes % (Manual) Lymphocytes # (Manual) POC ABG pH Sodium Potassium Chloride Carbon Dioxide BUN Creatinine Glucose POC Glucose 314 H 170 H < 40 L Lactic Acid Calcium Magnesium C-Reactive Protein Albumin 03/10/17 03/10/17 03/10/17 05:24 05:24 07:50 WBC 4.4 L RBC 3.59 L Hgb 10.8 L Hct 33.6 L RDW 16.8 H Lymph % (Auto) [place] % (Auto) 11.9 H Eos % (Auto) 4.6 H Lymph # 0.7 L Seg Neutrophils % Seg Neuts % (Manual) Lymphocytes % (Manual) Monocytes % (Manual) Lymphocytes # (Manual) POC ABG pH Sodium Potassium Chloride 94.4 L Carbon Dioxide BUN 46 H Creatinine 6.0 H Glucose POC Glucose 155 H Lactic Acid Calcium 8.1 L Magnesium C-Reactive Protein Albumin 03/10/17 03/10/17 03/11/17 16:22 21:51 04:03 WBC RBC Hgb Hct RDW Lymph % (Auto) [place] % (Auto) Eos % (Auto) Lymph # Seg Neutrophils % Seg Neuts % (Manual) Lymphocytes % (Manual) Monocytes % (Manual) Lymphocytes # (Manual) POC ABG pH Sodium Potassium Chloride Carbon Dioxide BUN Creatinine Glucose POC Glucose 354 H 442 H 292 H Lactic Acid Calcium Magnesium C-Reactive Protein Albumin 03/11/17 03/11/17 03/11/17 04:35 04:35 08:16 WBC 3.3 L RBC Hgb 11.1 L Hct 35.0 L RDW 16.8 H Lymph % (Auto) [place] % (Auto) Eos % (Auto) Lymph # Seg Neutrophils % Seg Neuts % (Manual) 73.0 H Lymphocytes % (Manual) Monocytes % (Manual) Lymphocytes # (Manual) 0.6 L POC ABG pH Sodium 135 L Potassium Chloride 91.5 L Carbon Dioxide BUN 33 H Creatinine 4.6 H Glucose 274 H POC Glucose 474 H Lactic Acid Calcium 8.2 L Magnesium C-Reactive Protein Albumin 03/11/17 03/11/17 03/12/17 13:01 21:43 05:58 WBC RBC Hgb 10.5 L Hct 33.3 L RDW Lymph % (Auto) [place] % (Auto) Eos % (Auto) Lymph # Seg Neutrophils % Seg Neuts % (Manual) Lymphocytes % (Manual) Monocytes % (Manual) Lymphocytes # (Manual) POC ABG pH Sodium Potassium Chloride Carbon Dioxide BUN Creatinine Glucose POC Glucose 356 H 45 L Lactic Acid Calcium Magnesium C-Reactive Protein Albumin 03/12/17 03/12/17 03/12/17 05:58 08:44 16:02 WBC RBC Hgb Hct RDW Lymph % (Auto) [place] % (Auto) Eos % (Auto) Lymph # Seg Neutrophils % Seg Neuts % (Manual) Lymphocytes % (Manual) Monocytes % (Manual) Lymphocytes # (Manual) POC ABG pH Sodium Potassium Chloride 94.2 L Carbon Dioxide BUN 49 H Creatinine 7.0 H D Glucose 200 H POC Glucose 282 H 303 H Lactic Acid Calcium 8.2 L Magnesium C-Reactive Protein Albumin 03/12/17 03/12/17 03/13/17 18:12 23:29 05:45 WBC 3.7 L RBC 3.56 L Hgb 10.5 L Hct 33.1 L RDW 16.1 H Lymph % (Auto) [place] % (Auto) Eos % (Auto) Lymph # Seg Neutrophils % Seg Neuts % (Manual) Lymphocytes % (Manual) Monocytes % (Manual) Lymphocytes # (Manual) POC ABG pH Sodium Potassium Chloride Carbon Dioxide BUN Creatinine Glucose POC Glucose 332 H 312 H Lactic Acid Calcium Magnesium C-Reactive Protein Albumin 03/13/17 03/13/17 03/13/17 05:45 07:30 11:53 WBC RBC Hgb Hct RDW Lymph % (Auto) [place] % (Auto) Eos % (Auto) Lymph # Seg Neutrophils % Seg Neuts % (Manual) Lymphocytes % (Manual) Monocytes % (Manual) Lymphocytes # (Manual) POC ABG pH Sodium 136 L Potassium Chloride 91.5 L Carbon Dioxide BUN 30 H Creatinine 5.2 H Glucose 263 H POC Glucose 330 H 283 H Lactic Acid Calcium Magnesium C-Reactive Protein Albumin 3.4 L 03/13/17 03/13/17 03/14/17 16:15 22:22 03:47 WBC RBC Hgb Hct RDW Lymph % (Auto) [place] % (Auto) Eos % (Auto) Lymph # Seg Neutrophils % Seg Neuts % (Manual) Lymphocytes % (Manual) Monocytes % (Manual) Lymphocytes # (Manual) POC ABG pH Sodium 134 L Potassium Chloride 92.4 L Carbon Dioxide BUN 38 H Creatinine 5.9 H Glucose 136 H POC Glucose 192 H 63 L Lactic Acid Calcium Magnesium C-Reactive Protein Albumin 03/14/17 03/14/17 03/15/17 06:24 21:04 06:36 WBC RBC Hgb 7.1 L D Hct 32.8 L RDW Lymph % (Auto) [place] % (Auto) Eos % (Auto) Lymph # Seg Neutrophils % Seg Neuts % (Manual) Lymphocytes % (Manual) Monocytes % (Manual) Lymphocytes # (Manual) POC ABG pH Sodium Potassium Chloride Carbon Dioxide BUN Creatinine Glucose POC Glucose 185 H 203 H Lactic Acid Calcium Magnesium C-Reactive Protein Albumin 03/15/17 03/15/17 03/15/17 06:36 06:58 11:37 WBC RBC Hgb Hct RDW Lymph % (Auto) [place] % (Auto) Eos % (Auto) Lymph # Seg Neutrophils % Seg Neuts % (Manual) Lymphocytes % (Manual) Monocytes % (Manual) Lymphocytes # (Manual) POC ABG pH Sodium 130 L Potassium 5.2 H Chloride 89.0 L Carbon Dioxide BUN 22 H Creatinine 4.3 H Glucose 379 H POC Glucose 368 H 357 H Lactic Acid Calcium 7.8 L Magnesium C-Reactive Protein Albumin Chest x-ray: report reviewed (No acute findings.)
[2017-03-15 19:28] LABS: Hemoglobin 10.3 gm/dl (11.8-15.2)
[2017-03-15] MEDS: REMERON PO SCH (22:23)
[2017-03-15] MEDS: XALATAN 0.005% OD SCH (22:23)
[2017-03-16] MEDS: NOVOLOG SUB-Q SCH ×2 (01:15→12:00)
[2017-03-16] MEDS: COMBIGAN 0.2-0.5% OD SCH ×2 (01:15→11:30)
[2017-03-16 07:53] LABS: Basophils % (Auto) 0.3 % (0.0-1.8); Eosinophils % (Auto) 0.6 % (0.0-4.3); Hematocrit 29.4 % (35.5-45.6); Hemoglobin 9.5 gm/dl (11.8-15.2); Mean Corpuscular HGB Conc 32 % (32-34); Mean Corpuscular Hemoglobin 30 pg (28-32); Mean Corpuscular Volume 92 fl (84-94); Platelet Count 300 K/mm3 (140-440); White Blood Count 7.3 K/mm3 (4.5-11.0)
[2017-03-16 08:06] LABS: BUN/Creatinine Ratio 5.44; Calcium 8.1 mg/dL (8.4-10.2); Chloride 92.7 mmol/L (98-107); Potassium 3.9 mmol/L (3.6-5.0)
--- NOTE | 2017-03-16 10:27 | Progress Note ---
Subjective Principal diagnosis: DKA; hematemesis Interval history: Patient was seen today for follow-up on multiple renal related issues patient is admitted with diabetic ketoacidosis uncontrolled hypertension and encephalopathy Currently status post feeding tube placement He is arousable but does not follow purposeful commands No acute distress Vitals labs intake output medications reviewed Social history: Reviewed Family history: Reviewed Physical examination Vitals: Reviewed HEENT: Oral mucosa moist Neck: Supple no JVD Chest: Clear to auscultation no crackles Heart: Regular rate and rhythm S1 and S2 heard Abdomen: Soft nontender bowel sounds present Extremity: Mild edema dry skin Dermatology; dry skin Psychiatry: No evidence of agitation or aggression/has a flat affect Assessment and plan; End-stage renal disease in a patient who has been dialysis dependent, currently on dialysis Friday and Friday monitor dialysis related labs admitted with GI bleed but hemoglobin is stable now status post GI evaluation Avoid any form of TALI inhibitor's or angiotensin receptor rico Accelerated hypertension requires close monitoring and follow-up Diabetes requires good control patient does have history of long-standing poorly controlled diabetes Monitor dialysis related labs Diabetic ketoacidosis patient has had similar admissions in the past very poor compliant high mortality risk Overall prognosis guarded to poor due to noncompliance We'll continue to follow and make recommendation from renal standpoint Objective - Vital Signs Vital signs: Vital Signs - 12hr 03/16/17 03/16/17 00:58 05:44 Temperature 98.9 F 98.0 F Pulse Rate [ 84 86 Right] Respiratory 20 18 Rate Blood Pressure 106/55 110/54 [Right Arm] O2 Sat by Pulse 96 97 Oximetry - Lab 03/16/17 06:54 03/16/17 06:54 Most recent lab results Calcium 8.1 mg/dL (8.4-10.2) L 03/16/17 06:54 Phosphorus 4.40 mg/dL (2.5-4.5) D 03/07/17 03:45 Magnesium 1.80 mg/dL (1.7-2.3) 03/09/17 04:13
--- NOTE | 2017-03-16 10:51 | Discharge Summary ---
Providers - Providers Date of Admission: 03/06/17 10:11 Date of discharge: 03/16/17 Attending physician: ARLEEN OWUSU MD 03/06/17 10:41 Consult to Physician [CONS] Routine Consulting Provider: CHOCO MAK Reason For Exam: coffee-ground emesis Place consult to:: Adelina Lima COMPUTER SCIENCE TEACHER Notified:: yes Phone number called:: overhead page Was contact made?: Yes If yes, spoke with:: Adelina Time called:: 09:29 Consult to Physician [CONS] Routine Consulting Provider: SHEFALI AYALA Reason For Exam: ESRD/on HD Place consult to:: Dr. Ayala Notified:: yes Phone number called:: [phone] Was contact made?: Yes If yes, spoke with:: Dr. Ayala Time called:: 10:39 03/06/17 16:42 Speech Therapy Evaluation and Treat [CONS] Routine Reason For Exam: metabolic encephalopathy 03/07/17 12:45 Consult to Dietitian/Nutrition [CONS] Routine Physician Instructions: Reason For Exam: Reason for Consult: Write/Manage Tube Feeding 03/11/17 14:21 Consult to Physician [CONS] Routine Consulting Provider: JONATHAN RIVAS Reason For Exam: PEG placement Place consult to:: Radha Gastro Notified:: Re [place] Phone number called:: Was contact made?: Yes If yes, spoke with:: Sylvia-answering service Time called:: 16:06 03/14/17 12:10 Consult to Dietitian/Nutrition [CONS] Routine Physician Instructions: May use G-tube after 1800, 03/14/17 Reason For Exam: Reason for Consult: Write/Manage Tube Feeding Primary care physician: CORPORATE STATISTICAL FINANCIAL ANALYST Hospitalization Condition: Poor Pertinent studies: Abdominal pelvis CT unremarkable. Chest x-ray unremarkable. Follow-up [facility] after placement of PEG tube unremarkable. Hospital course: 6-year-old male with a history of diabetes with noncompliance, CVA, end-stage renal disease on hemodialysis presented to the ED with altered mental status and coffee ground emesis. Patient found to have toxic metabolic encephalopathy secondary to DKA. Sepsis was ruled out. Patient also most likely has underlying dementia which needs to be further evaluated. Hospital course complicated by the inability of patient to adequately provide enough nutritional support to sustain life. Therefore take 2 placement was recommended and done. Tolerated PEG tube feedings well. At this particular time patient is back to baseline. Does have some cognitive impairment unchanged. Infection was ruled out. Sepsis was ruled out. EKG was secondary to noncompliance. This noncompliance most likely cognitive impairment. Disposition: DC/[place]-03 [facility] CERT - Discharge Diagnoses (1) Acute encephalopathy Status: Acute Comment: Acute encephalopathy resolved patient at baseline now stable to transfer back to senior care facility. (2) Acute on chronic kidney failure Status: Acute Qualifiers: Acute renal failure type: A Chronic kidney disease stage: C Comment: Chronic renal failure. Continue hemodialysis. (3) DKA (diabetic ketoacidoses) Status: Acute Qualifiers: Diabetes mellitus type: D Diabetes mellitus complication detail: D Comment: DKA has resolved. Patient's diabetes however remains suboptimal control. We'll increase Levemir to 18 units daily at bedtime and cover with sliding-scale insulin. At that time patient will most likely require a short acting insulin daily. Patient is on PEG tube feedings which will make blood sugar control a little more difficult. This however this can be controlled in the senior care facility setting. (4) Dehydration Status: Acute Comment: Secondary DK resolved. (5) Hematemesis/vomiting blood Status: Acute Qualifiers: Nausea presence: N Comment: No evidence of bleeding via EGD. Patient had PEG tube placed no evidence of bleeding H&H has remained stable. (6) Shortness of breath Status: Acute Comment: Secondary to DKA has resolved. (7) Hypertension Status: Chronic Qualifiers: Hypertension type: H Comment: Fairly well-controlled continue amlodipine metoprolol hydralazine. Core Measure Documentation - Palliative Care Palliative Care/ Comfort Measures: Not Applicable - Core Measures Any of the following diagnoses?: none Exam - Constitutional Vitals: Temp Pulse Resp BP Pulse Ox 98.0 F 86 18 110/54 97 03/16/17 05:44 03/16/17 05:44 03/16/17 05:44 03/16/17 05:44 03/16/17 05:44 General appearance: Present: no acute distress, cachectic, disheveled - EENT Eyes: Present: PERRL, EOM intact ENT: clear oral mucosa, other (poor dentition), no oropharyngeal erythema, no poor dentition - Neck Neck: Present: supple, normal ROM - Respiratory Respiratory effort: normal Respiratory: bilateral: CTA - Cardiovascular Rhythm: regular Heart Sounds: Present: S1 & S2 - Extremities Extremities: no ischemia, pulses symmetrical, No edema Extremity abnormal: pulses diminished, other Peripheral Pulses: abnormal - Abdominal General gastrointestinal: Present: soft, non-tender, non-distended, normal bowel sounds, other (PEG tube inserted no drainage no bleeding. Optional.) - Musculoskeletal Musculoskeletal: generalized weakness - Psychiatric Psychiatric: cooperative, other (or judgment poor cognition) - Neurologic Neurologic: focal deficits Plan Activity: fall precautions Weight Bearing Status: Non-Weight Bearing Diet: other (PEG tube feedings) Follow up with: PRIMARY CARE, [Primary Care Provider] - 3-5 Days Forms: Accompanied Note
[2017-03-16] MEDS: PEPCID PO SCH (11:00)
[2017-03-16] MEDS: LOPRESSOR PO SCH (11:00)
[2017-03-16] MEDS: LONITEN PO SCH (11:00)
[2017-03-16] MEDS: NORVASC PO SCH (11:00)
[2017-03-16] MEDS: HEPARIN SUB-Q SCH (11:00)
[2017-03-16] MEDS: COZAAR PO SCH (11:00)
[2017-03-16] MEDS ORDERED: LEVEMIR SUB-Q SCH (11:00)
[2017-03-16 12:57] VITALS: BP 102/54
== END 2017-03-16 14:38 | DRG 377 ==
LOC: ED 04:49 → CC1 10:11 → 4A 03-07 21:19
PROVIDERS: ADMIT Internal Medicine; ATTEND Internal Medicine
PROC: 4A033R1 Measurement of Arterial Saturation, Peripheral, Percutaneous Approach (ICD-10-PCS; principal; 2017-03-06)
PROC: 5A1D60Z (ICD-10-PCS; 2017-03-10)
PROC: 0DH68UZ Insertion of Feeding Device into Stomach, Via Natural or Artificial Opening Endoscopic (ICD-10-PCS; 2017-03-14)
DX: K92.0 Hematemesis (principal); E13.10 Other specified diabetes mellitus with ketoacidosis without coma; G92 Toxic encephalopathy; N18.6 End stage renal disease; I12.0 Hypertensive chronic kidney disease with stage 5 chronic kidney disease or end stage renal disease; N17.9 Acute kidney failure, unspecified; E87.5 Hyperkalemia; K21.9 Gastro-esophageal reflux disease without esophagitis; Z79.82 Long term (current) use of aspirin; E11.22 Type 2 diabetes mellitus with diabetic chronic kidney disease; E86.0 Dehydration; Z99.2 Dependence on renal dialysis; Z82.49 Family history of ischemic heart disease and other diseases of the circulatory system; E78.5 Hyperlipidemia, unspecified; Z86.73 Personal history of transient ischemic attack (TIA), and cerebral infarction without residual deficits; D64.9 Anemia, unspecified; F03.90 Unspecified dementia, unspecified severity, without behavioral disturbance, psychotic disturbance, mood disturbance, and anxiety
CPT/HCPCS: 36415; 36600; 71010; 71020; 74000; 74176; 80048; 80053; 80061; 82140; 82803; 82962; 83036; 83690; 83735; 83930; 84100; 85007; 85014; 85018; 85025; 85027; 85610; 85730; 86140; 86850; 86900; 86901; 87040; 93005; 93010; 94760; 96365; 96375; A9270-GY; G8996-GN; G8997-GN; J0360; J0610; J0690; J1644; J1815; J1818; J2270; J2405; J2543; J2704; J3370; J3475; J7030; J7040